=== PATIENT | female | born 1970 | race Caucasian/White ===

== ENCOUNTER 2016-09-23 20:42 | Observation (INO) | payer OTHER ==
[2016-09-23] MEDS ORDERED: Aspirin Low Dose CHEW TAB* 81 MG PO ONE (21:13)
[2016-09-23 21:20] LABS: Hematocrit 47 % (35-47); Hemoglobin 15.6 g/dl (12.0-16.0); Mean Corpuscular HGB Conc 33 g/dl (31-36); Mean Corpuscular Hemoglobin 29 pg (27-31); Mean Corpuscular Volume 88 fL (80-97); Mean Platelet Volume 8 um3 (7.4-10.4); Red Blood Count 5.34 10^6/ul (4.0-5.4); Red Cell Distribution Width 14 % (10.5-15); White Blood Count 8.8 10^3/ul (3.5-10.8)
[2016-09-23 21:31] LABS: ALT 9 U/L (7-52); AST 16 U/L (13-39); Albumin 4.3 g/dL (3.2-5.2); Alkaline Phosphatase 92 U/L (34-104); Anion Gap 6 mmol/L (2-11); BUN/Creatinine Ratio 21.1 (8-20); Blood Urea Nitrogen 15 mg/dL (6-24); CO2 Carbon Dioxide 28 mmol/L (22-32); Calcium 9.2 mg/dL (8.6-10.3); Chloride 100 mmol/L (101-111); EGFR African American 114.5 (>60); Globulin 3.4 g/dL (2-4); Glucose 90 mg/dL (70-100); Potassium 3.5 mmol/L (3.5-5.0); Sodium 134 mmol/L (133-145); Total Protein 7.7 g/dL (6.4-8.9)
[2016-09-23] MEDS ORDERED: Morphine INJ* 4 MG/ML 1 ML CARPUJECT IV ONE (21:51)
[2016-09-23] MEDS ORDERED: Ondansetron INJ* 2 MG/ML VIAL IV ONE (21:51)
[2016-09-23] MEDS ORDERED: NS 0.9% 1000 ML* 1,000 ML IV ONE (21:51)
--- NOTE | 2016-09-23 22:14 | RAD ---
Indication: Chest pain. Single frontal view of the chest performed at 2125 hours was reviewed. Comparison is made with previous exam dated May 18, 2014. No mediastinal shift is noted. Heart is of normal size and configuration. Lung payne appear clear. IMPRESSION: NO ACTIVE CARDIOPULMONARY DISEASE IS NOTED.
--- NOTE | 2016-09-23 22:23 | RAD ---
Indication: Evaluate for perforated esophagus. CT of the chest was performed without IV contrast. A small amount of oral contrast was administered. Coronal and sagittal reconstructed images were obtained. There is no evidence of extraluminal contrast is noted in the mediastinum. No evidence of mediastinal air is noted. There is mild dilatation of the esophagus. There is however suggestion of a mucosal tear involving the left mid esophagus at the level just distal to the devin. There is some persistent contrast in this area. Correlation with endoscopy may be helpful. Lung payne appear clear. No pleural fluid is identified. The visualized abdominal organs are unremarkable. IMPRESSION: There is septation in the left lateral aspect of the distal esophagus. The possibility of a Mary-Duong tear or a contained perforation should be considered. No mediastinal air is noted. Findings discussed with Dr. Hoover at the time of the examination.
[2016-09-23] MEDS ORDERED: Clindamycin 900 MG IVPREMIX(* 900 MG/50 ML SDV IV ONE (23:20)
[2016-09-23 23:37] LABS: C Reactive Protein 4.47 mg/L (< 5.00)
--- NOTE | 2016-09-23 23:37 | HP ---
H&P (Free Text) History and Physical: PCP: Vanessa Constantino NP Date/Time of Evaluation: 09/23/2015 2345 CC: N/V, chest pain HPI: Mrs Bueno is a 45F HX frequent vomiting who typically awakens each morning feeling SOB which improves after vomiting. She reports being extensively worked up by ENT & GI with little relief. She began having continuous sharp non- exertional R para-sternal chest pain radiating to the mid-scapular back without change in her typical SOB, N/V, palpitations, light-headedness, sweats, F/C, or other issues. The pain has worsened in the interim becoming severe today prompting her to present for evaluation. CT chest WO was read as "There is septation in the left lateral aspect of the distal esophagus. The possibility of a Mary-Duong tear or a contained perforation should be considered. No mediastinal air is noted." Vitals and labs are unenlightening. Maverick Hoover MD ED consulted with Woodrow Dominique MD surgery & Yobnay Navarro MD GI. Dr Navarro felt the patient could be safely managed at [facility] and will evaluate her in the AM. Anticipate EGD for confirmation of the lesion. PMedHx frequent vomiting tachycardia laryngopharyngeal reflux disease generalized anxiety disorder depression Allergies No Known Allergies Allergy (Verified 09/24/16 01:31) Ambulatory Orders ARIPiprazole TAB* [Abilify TAB*] 10 mg PO DAILY 08/17/14 Gabapentin CAP(*) [Neurontin 300 CAP(*)] 300 mg PO QID 08/17/14 Omeprazole CAP* [Prilosec CAP* 20 MG] 20 mg PO BID 08/17/14 QUEtiapine XR TAB* [Seroquel Xr TAB*] 50 mg PO BEDTIME PRN 08/17/14 hydrOXYzine HCL TAB* [Atarax TAB*] 50 mg PO BID PRN 08/17/14 Benzonatate [Tessalon Perles] 100 mg PO DAILY PRN 08/04/15 Mirtazapine [Remeron] 15 mg PO BEDTIME PRN 08/04/15 Digoxin TAB* [Lanoxin TAB*] 1 tab PO EVERY OTHER DAY 12/29/15 Albuterol Sulfate [Proair Respiclick] 108 mcg IN Q6H PRN 01/02/16 Mometasone/Formoter 100/5 MDI* [Dulera 100/5 MDI*] 2 puff INH BID 01/02/16 Ondansetron ODT TAB* [Zofran Odt TAB*] 4 mg PO Q6H PRN #20 tab.odt 04/26/16 Alprazolam [Xanax] 0.5 mg PO QPM 09/24/16 Digoxin [Digitek] 0.25 mg PO EVERY OTHER DAY 09/24/16 Effexor CAP (NF) 37.5 mg PO DAILY 09/24/16 Ondansetron ORAL.PEARL* [Zofran ORAL.PEARL] 4 mg PO Q6HR PRN 09/24/16 Sucralfate [Carafate] 1 gm PO BID 09/24/16 SocHx: 1/2PPD cigarettes, denies alcohol and recreational drugs; lives with her girlfriend; full code status FamHx: reviewed, non-contributory ROS: as above, otherwise reviewed and all were negative Constitutional: NAD, normally developed, well-nourished white female vitals: Vital Signs Temp 36.7 C 09/23/16 21:33 Pulse 64 09/24/16 01:30 Resp 15 09/24/16 01:30 BP 112/65 09/24/16 01:30 Pulse Ox 96 09/24/16 01:30 Intake & Output 09/23/16 09/23/16 09/24/16 11:59 23:59 11:59 Intake Total 1052 Balance 1052 Weight 138 lb Intake: IV Fluids 1052 HEENM: atraumatic; sclera/conjunctiva: non-icteric/clear; hearing: clinically intact; oropharynx: clear, mucosa moist Neck: soft tissue: non-tender; thyroid: normal Pulmonary: clear to auscultation bilaterally, good aeration, no accessory muscle use CV: RR/RR, normal S1S2, no carotid bruit, no jugular venous distention, 2+ B DP/ PT, no edema Abdominal: soft, non-distended, non-tender, no rebound/guarding/rigidity, normoactive bowel sounds, no hepatosplenomegaly or masses, no costovertebral angle tenderness Musculoskeletal: general: grossly intact; gait: stable Integumental: normal appearance and texture Psychiatric orientation: AA&O to PPS affect: calm mood: cooperative eye contact: good content: seemingly reliable responses: timely insight: fair Testing: Lab Results 09/23/16 09/23/16 09/23/16 Range/Units 21:05 21:05 21:05 WBC 8.8 (3.5-10.8) 10^3/ul RBC 5.34 (4.0-5.4) 10^6/ul Hgb 15.6 (12.0-16.0) g/dl Hct 47 (35-47) % MCV 88 (80-97) fL MCH 29 (27-31) pg MCHC 33 (31-36) g/dl RDW 14 (10.5-15) % Plt Count 218 (150-450) 10^3/ul MPV 8 (7.4-10.4) um3 Neut % (Auto) 53.9 (38-83) % Lymph % (Auto) 35.1 (25-47) % [place] % (Auto) 6.8 (1-9) % Eos % (Auto) 3.0 (0-6) % Baso % (Auto) 1.2 (0-2) % Absolute Neuts (auto) 4.7 (1.5-7.7) 10^3/ul Absolute Lymphs (auto) 3.1 (1.0-4.8) 10^3/ul Absolute Monos (auto) 0.6 (0-0.8) 10^3/ul Absolute Eos (auto) 0.3 (0-0.6) 10^3/ul Absolute Basos (auto) 0.1 (0-0.2) 10^3/ul Absolute Nucleated RBC 0 10^3/ul Nucleated RBC % 0 Sodium 134 (133-145) mmol/L Potassium 3.5 (3.5-5.0) mmol/L Chloride 100 L (101-111) mmol/L Carbon Dioxide 28 (22-32) mmol/L Anion Gap 6 (2-11) mmol/L BUN 15 (6-24) mg/dL Creatinine 0.71 (0.51-0.95) mg/dL Est GFR ( Amer) 114.5 (>60) Est GFR (Non-Af Amer) 89.0 (>60) BUN/Creatinine Ratio 21.1 H (8-20) Glucose 90 (70-100) mg/dL Lactic Acid 0.6 (0.5-2.0) mmol/L Calcium 9.2 (8.6-10.3) mg/dL Total Bilirubin 0.50 (0.2-1.0) mg/dL AST 16 (13-39) U/L ALT 9 (7-52) U/L Alkaline Phosphatase 92 (34-104) U/L Troponin I 0.00 (<0.04) ng/mL C-Reactive Protein 4.47 (< 5.00) mg/L Total Protein 7.7 (6.4-8.9) g/dL Albumin 4.3 (3.2-5.2) g/dL Globulin 3.4 (2-4) g/dL Albumin/Globulin Ratio 1.3 (1-3) Beta HCG, Quant < 0.60 mIU/mL ECG, personally reviewed: NSR rate 68, no ischemia CXR, personally reviewed: IMPRESSION: NO ACTIVE CARDIOPULMONARY DISEASE IS NOTED. CT chest WO, personally reviewed: IMPRESSION: There is septation in the left lateral aspect of the distal esophagus. The possibility of a Mary-Duong tear or a contained perforation should be considered. No mediastinal air is noted. Impression: 45F HX frequent vomiting presents with suspicious of Mary-Duong tear on CT associated with 4 days of chest pain DIAGNOSIS & PLAN Primary chest pain after emesis with CT finding suspicious for Mary-Duong tear : NPO : Yobany Navarro MD GI consulted, will evaluate in AM : pantoprazole bolus/GTT : anti-emetics PRN : pain control : supportive care Secondary laryngopharyngeal reflux disease : PPI as above generalized anxiety disorder : continue alprazolam depression : continue aripiprazole, quetiapine, mirtazapine & venlafaxine tachycardia : continue digoxin Admission Rational: observation for evaluation of possible Mary-Duong tear/ chest pain DVTp: MADALYN Code Status: full
--- NOTE | 2016-09-23 23:51 | ED ---
Shalom Liu Michael, scribed for Any Hoover MD on 09/23/16 at 2155 . HPI Chest Pain - HPI Summary HPI Summary: 45 y/o female comes to the ED presenting with constant and sharp right sided chest pain that started 4 days ago. The pt reports that the chest pain radiates to her back. The chest pain is not aggravated with deep breathes. She also c/o dizziness that started today and MOYER present for 2 days. The PMHx is significant for GERD and chronic vomiting. The chronic vomiting started one year ago and she regularly visits Dr. Bacon. The vomiting episodes are alleviated by nothing. The pt reports having an appointment on 09/27/16 with a [facility] surgeon for a mass under her right breast. - History of Current Complaint Chief Complaint: EDChestPainROMI Time Seen by Provider: 09/23/16 21:08 Hx Obtained From: Patient, Family/Timber Cruiser, Medical Records Onset/Duration: Started Days Ago, Still Present Timing: Constant Initial Severity: Moderate Current Severity: Moderate Pain Intensity: 5 Pain Scale Used: 0-10 Numeric Chest Pain Location: Right Lateral Chest Pain Radiates: Yes Chest Pain Radiates To:: Back Character: Sharp/Stabbing Associated Signs and Symptoms: Positive: Chest Pain, Headaches, Dizziness, Vomiting - Allergy/Home Medications Allergies/Adverse Reactions: Allergies Allergy/AdvReac Type Severity Reaction Status Date / Time No Known Allergies Allergy Verified 06/13/16 09:21 PMH/Surg Hx/FS Hx/Imm Hx Endocrine/Hematology History: Denies: Hx Diabetes, Hx Systemic Lupus Erythematosus Cardiovascular History: Denies: Hx Congestive Heart Failure, Hx Hypertension, Hx Pacemaker/ICD, Other Cardiovascular Problems/Disorders Respiratory History: Denies: Other Respiratory Problems/Disorders GI History: Reports: Hx Gastroesophageal Reflux Disease - ON MEDS PRN Denies: Other GI Disorders History: Reports: Hx Kidney Stones - RIGHT SIDE, Other Problems/Disorders - Kidney Stents IN THE PAST Denies: Hx Dialysis, Hx Renal Disease Musculoskeletal History: Denies: Hx Rheumatoid Arthritis, Other Musculoskeletal History Sensory History: Denies: Hx Contacts or Glasses, Hx Hearing Aid Opthamlomology History: Denies: Hx Contacts or Glasses Neurological History: Denies: Other Neuro Impairments/Disorders Psychiatric History: Reports: Hx Anxiety - ON MEDS, Hx Depression - ON MEDS, Hx Panic Disorder - ANXIETY - Cancer History Hx Chemotherapy: No Hx Radiation Therapy: No - Surgical History Surgery Procedure, Year, and Place: RIGHT Wrist Ganglion 1989 @ [facility]; Kidney Stents 1999, [facility] Hx Anesthesia Reactions: No Infectious Disease History: Reports: Hx of Known/Suspected MRSA Denies: Traveled Outside the [place] in Last 30 Days - Family History Known Family History: Positive: Renal Disease - kidney stones, Other - kidney stones - Social History Occupation: Unemployed Lives: With Family Alcohol Use: Rare Hx Substance Use: No Substance Use Type: Reports: None Hx Tobacco Use: Yes Smoking Status (MU): Light Every Day Tobacco Smoker Review of Systems Negative: Fever Positive: Chest Pain Positive: Vomiting Neurological: Other - dizziness Positive: Headache All Other Systems Reviewed And Are Negative: Yes Physical Exam Triage Information Reviewed: Yes Vital Signs On Initial Exam: Initial Vitals BP 124/80 09/23/16 21:00 Vital Signs Reviewed: Yes Appearance: Positive: Well-Appearing, No Pain Distress Skin: Positive: Warm, Skin Color Reflects Adequate Perfusion, Dry, Other - fibrocystic mass left breast Eyes: Positive: EOMI, NAVIN ENT: Positive: Other - dry oral mucosa Neck: Positive: Supple, Nontender Respiratory/Lung Sounds: Positive: Clear to Auscultation, Breath Sounds Present. Negative: Rales, Rhonchi, Wheezes Cardiovascular: Positive: RRR, Other - no gallop. Negative: Murmur, Rub Abdomen Description: Positive: Nontender, Soft, Other: - no rebound. Negative: Distended, Guarding Bowel Sounds: Positive: Present Musculoskeletal: Positive: Strength/ROM Intact. Negative: Edema Left, Edema Right Neurological: Positive: Sensory/Motor Intact, Alert, Oriented to Person Place, Time, CN Intact II-III Psychiatric: Positive: Affect/Mood Appropriate - [place] Coma Scale Coma Scale Total: 15 Diagnostics - Vital Signs Vital Signs Temp Pulse Resp BP Pulse Ox 09/23/16 21:33 98.1 F 74 16 116/76 97 09/23/16 21:02 69 14 97 09/23/16 21:00 124/80 - Laboratory Lab Results: Lab Results 09/23/16 09/23/16 09/23/16 Range/Units 21:05 21:05 21:05 WBC 8.8 (3.5-10.8) 10^3/ul RBC 5.34 (4.0-5.4) 10^6/ul Hgb 15.6 (12.0-16.0) g/dl Hct 47 (35-47) % MCV 88 (80-97) fL MCH 29 (27-31) pg MCHC 33 (31-36) g/dl RDW 14 (10.5-15) % Plt Count 218 (150-450) 10^3/ul MPV 8 (7.4-10.4) um3 Neut % (Auto) 53.9 (38-83) % Lymph % (Auto) 35.1 (25-47) % [place] % (Auto) 6.8 (1-9) % Eos % (Auto) 3.0 (0-6) % Baso % (Auto) 1.2 (0-2) % Absolute Neuts (auto) 4.7 (1.5-7.7) 10^3/ul Absolute Lymphs (auto) 3.1 (1.0-4.8) 10^3/ul Absolute Monos (auto) 0.6 (0-0.8) 10^3/ul Absolute Eos (auto) 0.3 (0-0.6) 10^3/ul Absolute Basos (auto) 0.1 (0-0.2) 10^3/ul Absolute Nucleated RBC 0 10^3/ul Nucleated RBC % 0 Sodium 134 (133-145) mmol/L Potassium 3.5 (3.5-5.0) mmol/L Chloride 100 L (101-111) mmol/L Carbon Dioxide 28 (22-32) mmol/L Anion Gap 6 (2-11) mmol/L BUN 15 (6-24) mg/dL Creatinine 0.71 (0.51-0.95) mg/dL Est GFR ( Amer) 114.5 (>60) Est GFR (Non-Af Amer) 89.0 (>60) BUN/Creatinine Ratio 21.1 H (8-20) Glucose 90 (70-100) mg/dL Lactic Acid 0.6 (0.5-2.0) mmol/L Calcium 9.2 (8.6-10.3) mg/dL Total Bilirubin 0.50 (0.2-1.0) mg/dL AST 16 (13-39) U/L ALT 9 (7-52) U/L Alkaline Phosphatase 92 (34-104) U/L Troponin I 0.00 (<0.04) ng/mL Total Protein 7.7 (6.4-8.9) g/dL Albumin 4.3 (3.2-5.2) g/dL Globulin 3.4 (2-4) g/dL Albumin/Globulin Ratio 1.3 (1-3) Beta HCG, Quant < 0.60 mIU/mL Result Diagrams: 09/23/16 21:05 09/23/16 21:05 Lab Statement: Any lab studies that have been ordered have been reviewed, and results considered in the medical decision making process. - Radiology CXR Xray Interpretation: No Acute Changes Radiology Interpretation Completed By: Radiologist - CT Chest CT CT Interpretation: Positive (See Comments) - There is septation in the left lateral aspect of the distal esophagus. The possibility of a Mary-Duong tear or a contained perforation should be considered. No mediastinal air is noted. CT Interpretation Completed By: Radiologist - EKG EK EKG Rhythm: Sinus Rhythm - 68 bpm EKG Comparison: No Significant Change - compared to 01/01/16 Chest Pain Course/Dx - Course Course Of Treatment: 45 y/o female c/o right sided chest pain that started four days ago. She also presents dizziness and MOYER. The pt has chronic vomiting episodes. See Chart for Chest CT results. Dr. Navarro was consulted about imaging results, and Dr. Stauffer was consulted at 2314. The pt will be admitted to [facility]. Ct shows esophageal tear pt very well appearing talk with Dr. Navarro and Dr. Stauffer will observe overnight - Diagnoses Provider Diagnoses: Esophageal abnormality Discharge - Discharge Plan Condition: Stable Disposition: ADMITTED TO [facility] Discharge Disposition Comment: Dr. Stauffer accepts the pt as an admission Referrals: Facundo Constantino, ACCOUNT DEVELOPMENT ASSOCIATE [Primary Care Provider] - The documentation as recorded by the Shalom sue Michael accurately reflects the service I personally performed and the decisions made by me, Any Hoover MD.
[2016-09-24] MEDS ORDERED: Mirtazapine TAB* 15 MG PO PRN (01:53)
[2016-09-24] MEDS ORDERED: hydrOXYzine HCL TAB* 50 MG PO PRN (01:53)
[2016-09-24] MEDS ORDERED: QUEtiapine XR TAB* 50 MG PO PRN (01:53)
[2016-09-24] MEDS ORDERED: Benzonatate CAP* 100 MG PO PRN (01:53)
[2016-09-24] MEDS ORDERED: Albuterol 2.5 MG/3 ML NEB.SOL* (0.083%) INH PRN (01:57)
[2016-09-24] MEDS ORDERED: LORazepam INJ* 2 MG/ML 1 ML VIAL IV PRN (02:00)
[2016-09-24] MEDS ORDERED: Acetaminophen TAB* 325 MG PO PRN (02:10)
[2016-09-24] MEDS ORDERED: Pantoprazole IV* 80 MG in NS 0.9% 250 ML* 250 ML IVPB SCH (03:00)
[2016-09-24] MEDS ORDERED: Pantoprazole IV* 40 MG IV SCH (03:00)
[2016-09-24] MEDS ORDERED: Pantoprazole IV* 40 MG ONE (03:18)
[2016-09-24] MEDS: Ondansetron INJ* 2 MG/ML VIAL IV PRN ×3 (03:39→15:56)
[2016-09-24] MEDS: HYDROmorphone INJ* 1 MG/ML CARPUJECT SYRINGE IV PRN ×3 (03:39→15:55)
[2016-09-24] MEDS: NS 0.9% 1000 ML* 1,000 ML IV SCH ×2 (03:40→15:55)
[2016-09-24] MEDS ORDERED: Sucralfate TAB* 1 GM PO SCH (07:15)
[2016-09-24] MEDS ORDERED: Clindamycin 600 MG IVPREMIX(* 600 MG/50 ML SDV IV SCH (08:00)
[2016-09-24] MEDS ORDERED: Venlafaxine EXT RELEASE CAP* 37.5 MG PO SCH (09:00)
[2016-09-24] MEDS ORDERED: ARIPiprazole TAB* 5 MG PO SCH (09:00)
[2016-09-24] MEDS ORDERED: Mometasone/Formoter 100/5 MDI INH SCH (09:00)
[2016-09-24] MEDS ORDERED: Digoxin TAB* 0.25 MG PO SCH (09:00)
[2016-09-24] MEDS: Gabapentin CAP(*) 300 MG PO SCH ×2 (10:31→15:55)
--- NOTE | 2016-09-24 11:29 | PN ---
Subjective Date of Service: 09/24/16 Interval History: This is a 45 yo female with a h/o GERD, anxiety and depression who presented with complaints of chest pain. Patient has a long history of reflux and frequent vomiting after meals. She has been seen by GI in the past and had a normal EGD 12/2015. The chest pain was a new symptom that brought her to the ER. CT of the chest demonstrated a septation of the L lat aspect of the distal esophagus potentially representing a Mary-Duong tear or encapsulated perforation, no air in the mediastinum. Patient was started on a Protonix drip and an EGD with Dr Navarro is pending for later today. Patient reports that her pain is tolerable and intermittent. Denies abdominal pain, n/v. No diarrhea. Objective Active Medications: Acetaminophen (Tylenol Tab*) 650 mg PO Q6H PRN PRN Reason: FEVER/PAIN Albuterol (Ventolin 2.5 Mg/3 Ml Neb.Evelin*) 2.5 mg INH Q2H PRN PRN Reason: SOB/WHEEZING Alprazolam (Xanax Tab*) 0.5 mg PO QPM [facility] Aripiprazole (Abilify Tab*) 10 mg PO DAILY [facility] Last Admin: 09/24/16 10:31 Dose: 10 mg Benzonatate (Tessalon Cap*) 100 mg PO DAILY PRN PRN Reason: COUGH Digoxin (Lanoxin Tab*) 0.25 mg PO EVERY OTHER DAY [facility] Last Admin: 09/24/16 10:31 Dose: 0.25 mg Digoxin (Lanoxin Tab*) 0.125 mg PO EVERY OTHER DAY [facility] Gabapentin (Neurontin Cap(*)) 300 mg PO QID [facility] Last Admin: 09/24/16 10:31 Dose: 300 mg Hydromorphone HCl (Dilaudid Iv*) 1 mg IV Q3H PRN PRN Reason: PAIN Last Admin: 09/24/16 08:48 Dose: 1 mg Hydroxyzine HCl (Atarax Tab*) 50 mg PO BID PRN PRN Reason: AGITATION/ANXIETY Clindamycin HCl/Dextrose (Cleocin 600 Mg Ivpremix(*) Sdv) 600 mg in 50 mls @ 100 mls/hr IV Q8H [facility] Last Admin: 09/24/16 08:53 Dose: 100 mls/hr Sodium Chloride (Ns 0.9% 1000 Ml*) 1,000 mls @ 125 mls/hr IV PER RATE [facility] Last Admin: 09/24/16 03:40 Dose: 125 mls/hr Pantoprazole Sodium 80 mg/ (Sodium Chloride) 250 mls @ 25 mls/hr IVPB Q10H [facility] Last Admin: 09/24/16 03:39 Dose: 25 mls/hr Lorazepam (Ativan Inj*) 0.5 mg IV BEDTIME PRN PRN Reason: SLEEP Mirtazapine (Remeron Tab*) 15 mg PO BEDTIME PRN PRN Reason: INSOMNIA Mometasone Furoate/Formoterol Fumar (Dulera 100/5 Mdi*) 2 puff INH BID [facility] Last Admin: 09/24/16 08:48 Dose: 2 puff Ondansetron HCl (Zofran Inj*) 4 mg IV Q6H PRN PRN Reason: NAUSEA Last Admin: 09/24/16 08:49 Dose: 4 mg Quetiapine Fumarate (Seroquel Xr Tab*) 50 mg PO BEDTIME PRN PRN Reason: ANXIETY Sucralfate (Carafate*) 1 gm PO 0715,1630 [facility] Last Admin: 09/24/16 08:37 Dose: 1 gm Venlafaxine HCl (Effexor Xr Cap*) 37.5 mg PO DAILY [facility] Last Admin: 09/24/16 10:32 Dose: 37.5 mg Vital Signs: Temp Pulse Resp BP Pulse Ox 97.9 F 60 14 97/52 98 09/24/16 02:55 09/24/16 10:31 09/24/16 10:31 09/24/16 07:40 09/24/16 08:53 Oxygen Devices in Use Now: None Appearance: Mildly uncomfortable appearing female Eyes: No Scleral Icterus Ears/Nose/Mouth/Throat: NL Teeth, Lips, Gums Neck: NL Appearance and Movements; NL JVP Respiratory: Symmetrical Chest Expansion and Respiratory Effort, Clear to Auscultation Cardiovascular: NL Sounds; No Murmurs; No JVD, RRR Abdominal: - - some mild LUQ TTP, but abd is soft Extremities: No Edema Skin: No Rash or Ulcers Neurological: Alert and Oriented x 3 Result Diagrams: 09/23/16 21:05 09/23/16 21:05 Additional Lab and Data: . Diagnostic Imaging: CT chest - septation of left lateral aspect of distal esopahgus, ?Mary duong tear v encapsulated perf, no mediastinal air Assess/Plan/Problems-Billing Assessment: This is a 45 yo female with a h/o asthma, GERD, anxiety and depression who presented with complaints of chest pain. Admitted with concern for Mary Duong tear of near perforation of the esophagus. - Patient Problems (1) Esophageal abnormality Comment: Abnl appearance on CT with complaints of chest pain Pending EGD for later today, patient appears clinically stable at this time Cont Protonix drip and empiric abx (2) Asthma Comment: Cont inhaled medications (3) GERD (gastroesophageal reflux disease) (4) Depression Comment: Continue home medications (5) Anxiety Status and Disposition: Pending EGD
[2016-09-24] MEDS ORDERED: fentaNYL* 50 MCG/ML 2 ML VIAL (100 MCG VIAL) ONE (12:39)
[2016-09-24] MEDS ORDERED: Midazolam* 1 MG/ML 10 ML VIAL (10 MG) ONE (12:39)
[2016-09-24 13:01] LABS: Hematocrit 42 % (35-47); Mean Corpuscular HGB Conc 33 g/dl (31-36); Mean Corpuscular Hemoglobin 29 pg (27-31); Mean Corpuscular Volume 89 fL (80-97); Mean Platelet Volume 9 um3 (7.4-10.4); Red Blood Count 4.78 10^6/ul (4.0-5.4); Red Cell Distribution Width 14 % (10.5-15); White Blood Count 8.2 10^3/ul (3.5-10.8)
[2016-09-24 13:20] LABS: C Reactive Protein 4.06 mg/L (< 5.00)
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
[2016-09-24 17:18] VITALS: BP 103/39
[2016-09-24] MEDS ORDERED: ALPRAZolam TAB* 0.5 MG PO SCH (18:00)
--- NOTE | 2016-09-24 23:18 | PRO ---
DATE: 09/24/16 - ROOM #416 REFERRING PRACTITIONERS: KAYLYN Matias; Eleuterio Johns * PROCEDURE: Upper gastrointestinal endoscopy through the distal duodenum. INDICATION: This 45-year-old woman came to the emergency room with nausea and vomiting extending over many months, possibly more. She had said it was worse and she was having pain in her chest. There was no hematemesis or fever. Esophageal injury came into the differential with her chest pain complaint and she had a chest x-ray that was normal and then CT scan, which was interpreted as showing possible esophageal injury or Boerhaave syndrome. No other findings suggested any infection in the mediastinum. She was placed empirically on sucralfate, acid inhibition, clindamycin, and pain control and kept n.p.o. otherwise. She remained afebrile and showed no sign of instability. Lung exam was unremarkable. Her pulse remained in the 60s. Although the possibility of esophageal injury raised question of a potentially catastrophic situation, preponderance of evidence was against this and as she had tolerated prior endoscopies without incident, it was planned to look with an endoscope. ENDOSCOPIST: Dr Navarro. MEDICATIONS: Midazolam 6, fentanyl 75. FINDINGS: She is a slender, generally healthy-appearing woman in no overt distress at this time. Her lungs are clear and the abdomen has normal bowel sounds and has some deep guarding in the generalized sense without any localization. EGD: Larynx - Views are limited, but symmetric and appeared unremarkable. Esophagus - easily entered and there was no gagging whatsoever. The patient was quite comfortable, again with no gagging or retching. Mucosa in the upper, mid, and lower esophagus appeared entirely normal without any scarring or chronic changes. There were no changes of allergy or scarring. The EG junction at 39 was normal, minimally loose potentially but without any signs of scar and certainly no Mary-Duong tear. Stomach - had normal contours and rugal folds, though visualization was slightly limited by a coating of Carafate. The EG junction on retroflexion; however, was not coated and appeared normal. Similarly, the antrum was normal with a minimal amount of Carafate. A smooth lump in the prepyloric area 6 o' clock orientation appeared consistent with the just described (confirmed at [facility] endoscopic ultrasound) and there was no indication to biopsy. The overlying mucosa was normal. Pylorus appeared normal. Duodenum - the bulb and second through fourth portions appear normal. IMPRESSION: 1. Small submucosal antral nodule - appeared stable per description. 2. Normal EGD including normal esophagus and EG junction. 3. Nausea and vomiting - source unclear, though it is observed the patient's nutritional situation appears stable with albumin 4.3 and normal CBC. 4. Abnormal CT scan - probably a false positive based on an asymmetric air column leading to an artifact. 5. Fibromyalgia and chronic pain with underlying anxiety - probably a co- factor in all her medical issues. [id number]/[facility] #: [id number] KACEY
--- NOTE | 2016-09-25 03:50 | DS ---
DISCHARGE SUMMARY: DATE OF ADMISSION: 09/23/16 DATE OF DISCHARGE: 09/24/16 PRIMARY CARE PHYSICIAN: Facundo Constantino NP CONSULTING [place] LETTER CARRIER: Dr. Navarro. DISCHARGING PROVIDER: ELFEGO Martinez SUPERVISING PHYSICIAN: Mansi Tate DO * (dictated by ELFEGO Martinez) PRIMARY DISCHARGE DIAGNOSIS: Chest pain with CT abnormality - concern for esophageal tear or rupture without corresponding findings on EGD, suspect esophageal spasm. SECONDARY DISCHARGE DIAGNOSES: 1. Asthma. 2. Gastroesophageal reflux disease. 3. Anxiety and depression. HOSPITAL IMAGIN. Chest x-ray. No acute disease. 2. CT of the chest without contrast shows a septation in the left lateral aspect of the distal esophagus, possibility of a Mary-Duong tear or a contained perforation should be considered. No mediastinal air is noted. DISCHARGE MEDICATIONS: 1. Effexor 37.5 mg p.o. daily. 2. Abilify 10 mg p.o. daily. 3. Albuterol 2 puffs inhaled q.6 hours p.r.n. shortness of breath. 4. Alprazolam 0.5 mg p.o. at night. 5. Tessalon Perles 100 mg p.o. daily. 6. Digoxin 0.125 mg alternating with 0.25 mg every other day. 7. Gabapentin 300 mg p.o. 4 times daily. 8. Imipramine 25 mg p.o. at bedtime. 9. Mirtazapine 15 mg p.o. at bedtime. 10. Symbicort 2 puffs inhaled twice daily. 11. Omeprazole 20 mg p.o. twice daily. 12. Zofran 4 mg p.o. q.6 hours p.r.n. nausea. 13. Seroquel 50 mg p.o. at bedtime. 14. Carafate 1 g p.o. b.i.d. 15. Hydroxyzine 50 mg p.o. twice a day as needed for anxiety. Medication Changes: Start imipramine. HOSPITAL COURSE: This is a 45-year-old female with a history of GERD, asthma, depression, and anxiety who presented to the emergency department with acute right- sided chest pain. The patient has had multi months' history of reflux- type symptoms with frequent vomiting. She has undergone prior EGD on two occasions, most recent with Dr. Dutton in December of this past year without any acute findings. She has been started on a PPI without relief. The chest pain that she experienced, however, was a new symptom and concerned her. Upon presentation to the emergency department, her labs were unremarkable including a negative troponin. Chest x-ray did not show any acute process. CT of the chest, however, was performed, which showed what was described as septation of the esophagus that was though to potentially represent a Mary-Duong tear verus a contained perforation. In combination with her prior GI symptoms and acute chest pain, the patient was admitted for further treatment and evaluation. The patient's symptoms remained fairly constant and she underwent EGD with Dr. Navarro who identified no acute pathology within her esophagus or stomach. Repeat CBC and comprehensive metabolic panel were unremarkable. The patient's hemoglobin remained stable. CRP remains negative and lipase was also noted to be negative. DISPOSITION AND DISCHARGE PLAN: The patient's chest pain appeared to be noncardiac. An EGD showed no evidence of acute esophageal pathology. The patient's symptoms may represent esophageal spasm. She has been referred to a specialist in [place] and has a pending appointment for later this month. Suggested that she trial empiric therapy for esophageal spasm. Consider diltiazem versus a tricyclic antidepressant. Elected for a tricyclic antidepressant as she was borderline hypotensive and bradycardic during her hospital stay and diltiazem may certainly make both of these worse. Suggest followup with her primary care provider and keep her consultation in [place] as previously planned. ELFEGO MARTINEZ CC: Facundo Constantino NP * [id number]/[facility] #: [id number] MTDD
[2016-09-25] MEDS ORDERED: Digoxin TAB* 0.125 MG PO SCH (09:00)
== END 2016-09-24 17:45 | disposition home or self-care (01) ==
LOC: ED 20:42 → MED 23:38
PROVIDERS: ADMIT Hospitalist; ATTEND Hospitalist
PROC: 0DJ08ZZ Inspection of Upper Intestinal Tract, Via Natural or Artificial Opening Endoscopic (ICD-10-PCS; principal; 2016-09-23)
DX: R07.9 Chest pain, unspecified (principal); K22.8 Other specified diseases of esophagus; R06.02 Shortness of breath; R11.2 Nausea with vomiting, unspecified; R00.0 Tachycardia, unspecified; J45.909 Unspecified asthma, uncomplicated; K21.9 Gastro-esophageal reflux disease without esophagitis; F41.9 Anxiety disorder, unspecified; F32.9 Major depressive disorder, single episode, unspecified; Z79.899 Other long term (current) drug therapy; F17.210 Nicotine dependence, cigarettes, uncomplicated; Z87.442 Personal history of urinary calculi
CPT/HCPCS: 36415; 71010; 71250; 80053; 83605; 83690; 84484; 84702; 85025; 85027; 86140; 93005; 94640; 96361; 96365; 96375; 96376; 99285; 99406; A9270-GY; J1170; J2250; J2270; J2405; J3010

== ENCOUNTER 2017-04-11 16:26 | Emergency (ER) | payer OTHER ==
[2017-04-11] MEDS ORDERED: Dexamethasone TAB* 4 MG PO ONE (16:59)
[2017-04-11] MEDS ORDERED: Diazepam TAB(*) 5 MG PO ONE (16:59)
[2017-04-11] MEDS ORDERED: oxyCODONE/Acetamin 5/325 MG* TAB PO ONE (16:59)
--- NOTE | 2017-04-11 18:26 | RAD ---
INDICATION: Neck, back, shoulder pain. Syncopal episode. COMPARISON: March 07, 2015 radiographs TECHNIQUE: Multidetector CT images foramen magnum to lung apices without contrast. Multiplanar reformation. REPORT: Mild kyphosis which may reflect positioning for CT exam. Negative for facet subluxation at any level. Negative for vertebral body or posterior element fracture. Negative for paravertebral hematoma. Multilevel degenerative spondylosis and facet joint osteoarthritis with associated reactive endplate sclerosis. Disc space narrowing is most prominent at C5-C6 and C6-C7 moderately severe. At C3-C4: mild dorsal disc osteophyte complex without resulting central canal stenosis. Facet joint osteoarthritis results in slight RIGHT foraminal stenosis. At C4-C5: dorsal disc osteophyte complex present with only mild resulting impression on the thecal sac. At C5-C6: dorsal disc osteophyte complex present with only mild resulting impression on the ventral margin of the thecal sac. Uncinate process spurring results in mild RIGHT foraminal stenosis. At C6-C7: dorsal disc osteophyte complex without significant resulting impression on the thecal sac. Uncinate process spurring results in moderate bilateral foraminal stenosis. IMPRESSION: 1. No evidence for traumatic cervical spine injury. 2. Multilevel degenerative spondylosis and facet joint osteoarthritis as described with associated multilevel foraminal stenosis.
--- NOTE | 2017-04-11 19:02 | ED ---
Neck Pain - HPI Summary HPI Summary: 46F presents with neck pain for 5 days. She states that the pain radiates to her shoulders. She states she has had pinched nerves before but that it does not feel like this. She denies any injury. She is getting tingling down her arms. She denies any weakness. the pain ends at upper back. She states the pain was so intense that she did pass out. She denies any chest pain, SOB. She has been taking ibuprofen without relief. She has history of DJD but has never had this pain before. - History of Current Complaint Chief Complaint: EDNeckComplaint Stated Complaint: SHOULDER NECK AND ARM PAIN Time Seen by Provider: 04/11/17 16:41 Pain Intensity: 8 - Allergies/Home Medications Allergies/Adverse Reactions: Allergies Allergy/AdvReac Type Severity Reaction Status Date / Time No Known Allergies Allergy Verified 09/24/16 01:31 PMH/Surg Hx/FS Hx/Imm Hx Endocrine/Hematology History: Denies: Hx Diabetes, Hx Systemic Lupus Erythematosus Cardiovascular History: Denies: Hx Congestive Heart Failure, Hx Hypertension, Hx Pacemaker/ICD, Other Cardiovascular Problems/Disorders Respiratory History: Reports: Hx Asthma, Hx Pneumonia Denies: Other Respiratory Problems/Disorders GI History: Reports: Hx Gastroesophageal Reflux Disease - ON MEDS PRN, Other GI Disorders - frequent vomiting History: Reports: Hx Kidney Stones - RIGHT SIDE, Other Problems/Disorders - Kidney Stents IN THE PAST Denies: Hx Dialysis, Hx Renal Disease Musculoskeletal History: Denies: Hx Rheumatoid Arthritis, Other Musculoskeletal History Sensory History: Reports: Hx Contacts or Glasses Denies: Hx Hearing Aid Opthamlomology History: Reports: Hx Contacts or Glasses Neurological History: Denies: Other Neuro Impairments/Disorders Psychiatric History: Reports: Hx Anxiety - ON MEDS, Hx Depression - ON MEDS, Hx Panic Disorder - ANXIETY - Cancer History Hx Chemotherapy: No Hx Radiation Therapy: No - Surgical History Surgery Procedure, Year, and Place: RIGHT Wrist Ganglion 1989 @ [facility]; Kidney Stents 1999, [facility] Hx Anesthesia Reactions: No Infectious Disease History: No Infectious Disease History: Reports: Hx of Known/Suspected MRSA Denies: Traveled Outside the [place] in Last 30 Days - Family History Known Family History: Positive: Renal Disease - kidney stones, Other - kidney stones - Social History Alcohol Use: None Hx Substance Use: No Substance Use Type: Reports: None Hx Tobacco Use: Yes Smoking Status (MU): Light Every Day Tobacco Smoker Review of Systems Negative: Fever Negative: Chest Pain Negative: Shortness Of Breath Positive: Myalgia - neck pain All Other Systems Reviewed And Are Negative: Yes Physical Exam Triage Information Reviewed: Yes Vital Signs On Initial Exam: Initial Vitals Temp Pulse Resp BP Pulse Ox 97.8 F 81 20 129/72 96 04/11/17 16:30 04/11/17 16:30 04/11/17 16:30 04/11/17 16:30 04/11/17 16:30 Vital Signs Reviewed: Yes Appearance: Positive: Pain Distress Skin: Positive: Warm, Dry Head/Face: Positive: Normal Head/Face Inspection Eyes: Positive: Normal, Conjunctiva Clear ENT: Positive: Normal ENT inspection, Pharynx normal, TMs normal Respiratory/Lung Sounds: Positive: Clear to Auscultation, Breath Sounds Present Cardiovascular: Positive: Normal, RRR Musculoskeletal: Positive: Strength/ROM Intact - neck with pain, Other - no midline tenderness, tender across back, good pulses, good color dipper strength Neurological: Positive: Sensory/Motor Intact, Alert, Oriented to Person Place, Time, CN Intact II-III, Reflexes Intact - biceps - [place] Coma Scale Coma Scale Total: 15 Diagnostics - Vital Signs Vital Signs Temp Pulse Resp BP Pulse Ox 04/11/17 17:28 16 04/11/17 16:55 70 95 04/11/17 16:46 97.8 F 81 20 129/72 98 04/11/17 16:30 97.8 F 81 20 129/72 96 - Laboratory Lab Statement: Any lab studies that have been ordered have been reviewed, and results considered in the medical decision making process. - CT neck CT Interpretation: Positive (See Comments) - IMPRESSION: 1. No evidence for traumatic cervical spine injury. 2. Multilevel degenerative spondylosis and facet joint osteoarthritis as described with associated multilevel foraminal stenosis. CT Interpretation Completed By: Radiologist - EKG No standard instances Cardiac Rate: NL EKG Rhythm: Sinus Rhythm ST Segment: Normal Neck Course/Dx - Course Course Of Treatment: 46F presents with neck pain for 5 days. She states that the pain radiates to her shoulders. She states she has had pinched nerves before but that it does not feel like this. She denies any injury. She is getting tingling down her arms. She denies any weakness. the pain ends at upper back. She states the pain was so intense that she did pass out. She denies any chest pain, SOB. She has been taking ibuprofen without relief. She has history of DJD but has never had this pain before. on exam no midline tenderness, tender across side of neck and down trapezius muscle. neurovascular intact. got EKG normal due to syncope but discussed and does not want further work up for syncope. CT neck no acute changes. will treat with steriod and muscle relaxer. discussed pain options and will give a couple to get through next couple days. patient understands and agrees with plan. - Diagnoses Differential Dx/HQI/PQRI: Positive: Cervical Fracture, Sprain, Other - herniation Provider Diagnoses: Neck pain Discharge - Discharge Plan Condition: Good Disposition: HOME Prescriptions: Cyclobenzaprine TAB* [Flexeril 10 MG TAB*] 10 mg PO TID PRN #9 tab PRN Reason: Pain Methylprednisolone [Medrol Dosepak 4 MG*] 4 mg PO .SEE BRAD INSTRUCTION #1 packet oxyCODONE/Acetamin 5/325 MG* [Percocet 5/325 TAB*] 1 tab PO Q8H PRN #5 tab MDD 3 PRN Reason: Pain Patient Education Materials: Neck Pain (ED) Referrals: Facundo Constantino, [employer]/R&D LAB TECHNICIAN [Primary Care Provider] - Additional Instructions: Take muscle relaxers three times a day for 3 days Take steroid as directed on package starting tomorrow Use ibuprofen or Tylenol for pain every 6 hours ice/heat area, move as much as possible Follow up with primary within 5 days Return to ED if develop any new or worsening symptoms
[2017-04-11 19:21] VITALS: BP 120/69
== END 2017-04-11 19:22 | disposition home or self-care (01) ==
LOC: ED 16:26
DX: M54.2 Cervicalgia (principal); F17.210 Nicotine dependence, cigarettes, uncomplicated
CPT/HCPCS: 72125; 93005; 99282; A9270-GY

== ENCOUNTER 2017-04-21 15:38 | Observation (INO) | payer OTHER ==
[2017-04-21] MEDS ORDERED: Aspirin Low Dose CHEW TAB* 81 MG PO ONE (18:07)
[2017-04-21] MEDS ORDERED: Aspirin Low Dose CHEW TAB* 81 MG ONE (18:49)
[2017-04-21 19:13] LABS: Hematocrit 45 % (35-47); Hemoglobin 14.9 g/dl (12.0-16.0); Mean Corpuscular HGB Conc 33 g/dl (31-36); Mean Corpuscular Hemoglobin 31 pg (27-31); Mean Corpuscular Volume 93 fL (80-97); Mean Platelet Volume 7 um3 (7.4-10.4); Red Blood Count 4.88 10^6/ul (4.0-5.4); Red Cell Distribution Width 14 % (10.5-15); White Blood Count 9.1 10^3/ul (3.5-10.8)
[2017-04-21 19:29] LABS: ALT 13 U/L (7-52); AST 19 U/L (13-39); Albumin 4.3 g/dL (3.2-5.2); Alkaline Phosphatase 79 U/L (34-104); Anion Gap 3 mmol/L (2-11); BUN/Creatinine Ratio 15.3 (8-20); Blood Urea Nitrogen 9 mg/dL (6-24); CO2 Carbon Dioxide 29 mmol/L (22-32); Calcium 8.9 mg/dL (8.6-10.3); Chloride 104 mmol/L (101-111); EGFR African American 141.1 (>60); EGFR Non-African American 109.7 (>60); Globulin 2.9 g/dL (2-4); Glucose 77 mg/dL (70-100); Potassium 3.9 mmol/L (3.5-5.0); Sodium 136 mmol/L (133-145); Total Protein 7.2 g/dL (6.4-8.9)
[2017-04-21 19:30] LABS: Troponin I 0.01 ng/mL (<0.04)
[2017-04-21 19:59] LABS: Lipase 104 U/L (11.0-82.0); Magnesium 2.3 mg/dL (1.9-2.7)
[2017-04-21 20:14] LABS: TSH (Thyroid Stimulating Horm) 1.34 mcIU/mL (0.34-5.60)
--- NOTE | 2017-04-21 20:27 | RAD ---
INDICATION: Headache and left-sided weakness COMPARISON: None. TECHNIQUE: Contiguous axial sections of the brain were obtained from the skull base to the vertex without contrast. FINDINGS: The ventricles, cisterns and sulci are within normal limits. The frias-white matter differentiation is adequately maintained and there is no sulcal effacement. No significant focal abnormality or mass effect is present. There is no evidence for intracranial hemorrhage. No significant focal osseous abnormality is present. The visualized portion of the paranasal sinuses and mastoid air cells appear clear. IMPRESSION: Normal CT of the brain.
--- NOTE | 2017-04-21 20:39 | RAD ---
INDICATION: Chest pain COMPARISON: Chest x-ray dated September 23, 2016 TECHNIQUE: PA and lateral views of the chest were obtained. FINDINGS: The heart and mediastinum are normal in size and contour. The lungs are grossly clear. There is no evidence of large pleural effusion. Visualized bones are normal for the patient's age. There is no radiographic evidence of free air beneath the diaphragm IMPRESSION: No radiographic evidence of acute cardiopulmonary disease.
[2017-04-21] MEDS ORDERED: Senna TAB PO PRN (20:59)
[2017-04-21] MEDS ORDERED: Docusate CAP* 100 MG PO PRN (20:59)
[2017-04-21] MEDS ORDERED: Ondansetron INJ* 2 MG/ML VIAL IV PRN (20:59)
[2017-04-21] MEDS ORDERED: Al Hydrox/Mg Hydrox/Simet LIQ* 30 ML UDC PO PRN (20:59)
[2017-04-21] MEDS ORDERED: Acetaminophen TAB* 325 MG PO PRN (20:59)
[2017-04-21] MEDS ORDERED: Albuterol HFA INHALER* 8 gm MDI INH PRN (21:06)
[2017-04-21] MEDS ORDERED: clonazePAM TAB(*) 0.5 MG PO PRN (21:07)
[2017-04-21] MEDS ORDERED: Benzonatate CAP* 100 MG PO PRN (21:25)
[2017-04-21] MEDS ORDERED: hydrOXYzine HCL TAB* 50 MG PO PRN (21:25)
[2017-04-21] MEDS ORDERED: Methocarbamol TAB* 500 MG PO PRN (22:38)
--- NOTE | 2017-04-21 22:50 | HP ---
CC: Facundo Constantino NP * HISTORY AND PHYSICAL: DATE OF ADMISSION: 04/21/17 TIME OF EVALUATION: 2100. PRIMARY CARE PHYSICIAN: Facundo Constantino NP CHIEF COMPLAINT: Chest pain. HISTORY OF PRESENT ILLNESS: This is a 46-year-old female with past medical history of SVT and Mary-Duong tears with significant laryngopharyngeal reflux disease, who presented to the emergency room after around 2 p.m. this evening when she developed chest pain at rest. The patient states she ate lunch. Short after, she developed chest pain on the left side with left-sided neck pain radiating down her left arm with numbness and tingling of her arm and also a headache. The patient has had chronic issues with her laryngopharyngeal reflux disease, also with a Schatzki's ring and Mary-Duong tear, which she is followed at [facility] for. She states she often vomits every morning, but this has gotten better and she states she does have a history of getting chest pain after eating, but this lasts for a longer time and she was concerned about the left-sided facial numbness and neck pain and radiating down her left arm. She did not have any episodes of vomiting today. She is nauseous. She states the chest pain now comes and goes, sharp, intermittent, followed by coughing and then developing left-sided headache. She states that her palpitations have simply gotten worse over the past few days. She did see Georgia Murillo from Dr. Johns's office on 04/18/17 and who sent her to get lab work to [facility] today, but the patient never ended up doing that. The patient states she has had a stress test more than a year ago that was unremarkable. She was also seen in the emergency room on the for neck pain, had a negative CT spine at that time. The patient denies any worsening cough. No URI symptoms. She has lost about 58 pounds over the past year due to her dysphagia. She was told by [place] [facility] she should liquid diet, but she cannot tolerate that. She denies any lower extremity swelling. No shortness of breath. No fevers or chills. Otherwise, remaining of review of systems is negative. In the emergency room, the patient had labs and imaging, was referred to the hospitalist service for further evaluation. PAST MEDICAL HISTORY: 1. History of SVT, followed by Dr. Johns. 2. Laryngopharyngeal reflux disease. 3. Anxiety. 4. Depression. 5. Admission in September of 2015 for presumed esophageal spasm. As mentioned, the patient is followed at [facility] by [facility] for her Schatzki's ring and Mary-Duong tear history. 6. Chronic back and neck pain. MEDICATIONS: Med record needs to be completed as the patient was able to list me the medications that she religiously takes, but she states she has list of several more that she only takes as needed. 1. Albuterol inhaler 2 puffs every 4 to 6 hours as needed. 2. Gabapentin 300 mg 4 times a day. 3. Zofran liquid q.4 hours as needed. 4. Klonopin 0.5 mg 1 to 2 tabs as needed at bedtime. 5. Digoxin 0.125 mg on the odd days, 2 tablets on the even days. 6. The patient was prescribed a new muscle relaxer, but she has not started taking that yet. 7. Prilosec 20 mg daily or as needed. 8. Seroquel at bedtime as needed. ALLERGIES: No known drug allergies. SOCIAL HISTORY: Patient lives alone, but also stays with her partner. She is a smoker on and off for the past several years. No history of alcohol or illicit drug use. She is unemployed. Her healthcare proxy is her mother, Ronel Bueno, and her friend, Tsering, who is at the bedside. Code status, full code. FAMILY HISTORY: No history of early cardiac disease. Her father is alive and has rheumatic fever. REVIEW OF SYSTEMS: A 14-point review of systems reviewed. Positive pertinent and negative mentioned in the HPI, otherwise negative. PHYSICAL EXAMINATION GENERAL: No acute distress, resting comfortably with her friend at the bedside. VITAL SIGNS: Temperature 98.1, pulse rate 78, respiratory rate 20, oxygen saturation 100% on room air, blood pressure 118/74. HEENT: Head normocephalic. Pupils are equal and reactive, anicteric. Oropharynx, mucous membranes are moist. No erythema or exudate. NECK: Supple. No lymphadenopathy. RESPIRATORY: Diminished breath sounds. No wheezes, rhonchi or rales. CARDIAC: Regular rate and rhythm. No murmurs, rubs or gallops. ABDOMEN: Soft, nontender, nondistended. EXTREMITIES: No clubbing, cyanosis or edema. +2 DPs. NEUROLOGIC: Alert and oriented x3. No focal neurologic deficits. LABORATORY DATA: White count 9.1, hematocrit 14.9, hematocrit 45, platelets 210. D-dimer is less than 200. Sodium is 136, potassium 3.9, chloride 104, bicarbonate 29, BUN 9, creatinine 0.59. Mag is 2.3, troponin is 0.01. Lipase 104. TSH 1.34. Digoxin level is 1. RADIOGRAPHIC DATA: Chest x-ray, no radiographic evidence of acute cardiopulmonary disease. Head CT, normal CT of the brain. EKG shows normal sinus rhythm. There are no significant ST changes. ASSESSMENT: This is a 46-year-old female with past medical history of SVT, laryngopharyngeal reflux disease with history of Mary-Duong tear and esophageal spasm, who presents to emergency room with left-sided chest pain radiating to the neck and arm. Chest pain. Assessment: I suspect this is musculoskeletal. She has a significant amount of neck pain and chronic musculoskeletal issues or this also could be reflux related with her significant history of reflux disease and followed by at [facility]. Less likely cardiac disease as she does have a history of SVT and the chest pain seems to be worsened than it has been in the past. Plan: We will admit her for observation for rule out of acute coronary syndrome. We will put in for nuclear stress test. The patient does not feel that she will be able to do the treadmill test because of the significant neck pain. Continue to trend her troponin, place her on a baby aspirin, check a lipid panel. CHRONIC MEDICAL PROBLEMS: 1. We will need to call for confirm of med rec. 2. Diet, placed her on heart healthy diet, n.p.o. after midnight. 3. DVT prophylaxis. The patient scores low risk. We will encourage ambulation. 4. Code status: Full code. PATIENT TIME: Greater than 60 minutes spent doing the history and physical, more than half the time spent in direct patient contact. [id number]/[facility] #: [id number] MTDD
[2017-04-21] MEDS ORDERED: Gabapentin CAP(*) 300 MG PO ONE (23:00)
[2017-04-21] MEDS ORDERED: Ketorolac INJ* 15 MG/ML 1 ML VIAL IV PUSH PRN (23:14)
--- NOTE | 2017-04-21 23:18 | ED ---
I, Oh,Soohlennieun, scribed for Micha Sharma MD on 04/21/17 at 2031 . HPI Chest Pain - HPI Summary HPI Summary: This 46 y/o female presents to ED for diffuse chest pain since 1400 PM today. Chest pain is described as tightness and constant at time of onset and now intermittent and sharp. Pain does radiate to left side neck. Positive left sided facial numbness, mid upper lower back pain, palpitation, and MOYER. Pt is unsure if mid upper back pain is secondary to her known DDD at cervical spine or chest pain radiating to between her shoulder. She attempted to alleviate pain with heating pad over her shoulder, but had no relief of chest pain. PMHx includes palpitation, which is controlled with digoxin, chronic dysphasia, which has scoped, had nodules removed, and followed up at [facility], and depression /anxiety. Gallbladder intact. She also states that she does not remember her ride into ED well. CP radiating to mid upper back pain. - History of Current Complaint Chief Complaint: EDChestPainROMI Time Seen by Provider: 04/21/17 19:15 Hx Obtained From: Patient, Medical Records Timing: Constant - at time of onset, Intermittent - now Pain Intensity: 7 Pain Scale Used: 0-10 Numeric Chest Pain Location: Diffuse Chest Pain Radiates: Yes Chest Pain Radiates To:: Neck - left sided neck Character: Sharp/Stabbing, Tightness Aggravating Factor(s): Nothing Alleviating Factor(s): Nothing Associated Signs and Symptoms: Positive: Chest Pain, Headaches, Numbness - left sided facial numbness, Palpitations. Negative: Shortness of Breath, Fever - Additional Pertinent History Primary Care Physician: [id number] - Allergy/Home Medications Allergies/Adverse Reactions: Allergies Allergy/AdvReac Type Severity Reaction Status Date / Time No Known Allergies Allergy Verified 09/24/16 01:31 PMH/Surg Hx/FS Hx/Imm Hx Endocrine/Hematology History: Denies: Hx Diabetes, Hx Systemic Lupus Erythematosus Cardiovascular History: Denies: Hx Congestive Heart Failure, Hx Hypertension, Hx Pacemaker/ICD, Other Cardiovascular Problems/Disorders Respiratory History: Reports: Hx Asthma, Hx Pneumonia Denies: Other Respiratory Problems/Disorders GI History: Reports: Hx Gastroesophageal Reflux Disease - ON MEDS PRN, Other GI Disorders - frequent vomiting History: Reports: Hx Kidney Stones - RIGHT SIDE, Other Problems/Disorders - Kidney Stents IN THE PAST Denies: Hx Dialysis, Hx Renal Disease Musculoskeletal History: Denies: Hx Rheumatoid Arthritis, Other Musculoskeletal History Sensory History: Reports: Hx Contacts or Glasses Denies: Hx Hearing Aid Opthamlomology History: Reports: Hx Contacts or Glasses Neurological History: Denies: Other Neuro Impairments/Disorders Psychiatric History: Reports: Hx Anxiety - ON MEDS, Hx Depression - ON MEDS, Hx Panic Disorder - ANXIETY - Cancer History Hx Chemotherapy: No Hx Radiation Therapy: No - Surgical History Surgery Procedure, Year, and Place: RIGHT Wrist Ganglion 1989 @ [facility] [place]; Kidney Stents 1999, [facility] [place] Hx Anesthesia Reactions: No Infectious Disease History: No Infectious Disease History: Reports: Hx of Known/Suspected MRSA Denies: Traveled Outside the [place] in Last 30 Days - Family History Known Family History: Positive: Renal Disease - kidney stones, Other - kidney stones - Social History Alcohol Use: None Hx Substance Use: No Substance Use Type: Reports: None Hx Tobacco Use: Yes Smoking Status (MU): Light Every Day Tobacco Smoker Review of Systems Negative: Fever Positive: Chest Pain Positive: other - Currently menstruating Positive: Headache, Numbness - Left sided facial All Other Systems Reviewed And Are Negative: Yes Physical Exam - Summary Physical Exam Summary: The patient is well-nourished in no acute distress and in no acute pain. The skin is warm and dry and skin color reflects adequate perfusion. HEENT: The head is normocephalic and atraumatic. The pupils are equal and reactive. The conjunctivae are clear and without drainage. Nares are patent and without drainage. Mouth reveals moist mucous membranes and the throat is without erythema and exudate. The external ears are intact. The ear canals are patent and without drainage. The tympanic membranes are intact. Neck is supple with full range of motion and non-tender. There are no carotid bruits. There is no neck vein distension. Respiratory: Chest is non-tender. Lungs are clear to auscultation and breath sounds are symmetrical and equal. Cardiovascular: Heart is regular rate and rhythm. There is no murmur or rub auscultated. Positive reproducible chest pain, which pt states different from her chief complaint. There is no peripheral edema and pulses are symmetrical and equal. Abdomen: The abdomen is soft and non-tender. There are normal bowel sounds heard in all four quadrants and there is no organomegaly palpated. Musculoskeletal: There is no back pain noted. Extremities are non-tender with full range of motion. There is good capillary refill. There is no peripheral edema or calf tenderness elicited. T4 and T8 paraspinal tenderness. Neurological: Patient is alert and oriented to person, place and time. Cranial nerves are grossly intact. The patient has symmetrical motor strength in BLE. Normal heel to chavez. No pronator drift present. Deep tendon reflexes are symmetrical and equal in ALL FOUR EXTREMITIES. Psychiatric: The patient has an appropriate affect and does not exhibit any anxiety or depression. Triage Information Reviewed: Yes Vital Signs On Initial Exam: Initial Vitals Temp Pulse Resp BP Pulse Ox 98.5 F 87 16 125/83 99 04/21/17 15:43 04/21/17 15:43 04/21/17 15:43 04/21/17 15:43 04/21/17 15:43 Vital Signs Reviewed: Yes Diagnostics - Vital Signs Vital Signs Temp Pulse Resp BP Pulse Ox 04/21/17 17:41 98.1 F 69 16 101/48 99 04/21/17 15:43 98.5 F 87 16 125/83 99 - Laboratory Lab Results: Lab Results 04/21/17 Range/Units 19:06 WBC 9.1 (3.5-10.8) 10^3/ul RBC 4.88 (4.0-5.4) 10^6/ul Hgb 14.9 (12.0-16.0) g/dl Hct 45 (35-47) % MCV 93 (80-97) fL MCH 31 (27-31) pg MCHC 33 (31-36) g/dl RDW 14 (10.5-15) % Plt Count 210 (150-450) 10^3/ul MPV 7 L (7.4-10.4) um3 Neut % (Auto) 55.3 (38-83) % Lymph % (Auto) 35.1 (25-47) % [place] % (Auto) 5.8 (1-9) % Eos % (Auto) 2.9 (0-6) % Baso % (Auto) 0.9 (0-2) % Absolute Neuts (auto) 5.0 (1.5-7.7) 10^3/ul Absolute Lymphs (auto) 3.2 (1.0-4.8) 10^3/ul Absolute Monos (auto) 0.5 (0-0.8) 10^3/ul Absolute Eos (auto) 0.3 (0-0.6) 10^3/ul Absolute Basos (auto) 0.1 (0-0.2) 10^3/ul Absolute Nucleated RBC 0 10^3/ul Nucleated RBC % 0 Result Diagrams: 04/21/17 19:06 04/21/17 19:06 Lab Statement: Any lab studies that have been ordered have been reviewed, and results considered in the medical decision making process. - Radiology CXR Xray Interpretation: No Acute Changes Radiology Interpretation Completed By: Radiologist - CT Brain CT Interpretation: No Acute Changes CT Interpretation Completed By: Radiologist - EKG 1602 Cardiac Rate: NL EKG Rhythm: Sinus Rhythm EKG Interpretation: Normal axis. No ST elevation. Re-Evaluation - Re-Evaluation First Eval Re-Evaluation Time: 20:25 Comment: Reviewed lab, CT, and CXR with pt. Pt is agreeable hospital admit. Chest Pain Course/Dx - Chest Pain Differential Diagnosis/HQI/PQRI: Acute OH, ACS - Diagnoses Provider Diagnoses: Chest pain, Headache - Provider Notifications Discussed Care Of Patient With: Celena Fournier Time Discussed With Above Provider: 20:29 Discharge - Discharge Plan Condition: Stable Disposition: ADMITTED TO [facility] documentation as recorded by the Lars sue Soohyun accurately reflects the service I personally performed and the decisions made by , Micha Sharma MD.
[2017-04-22] MEDS: HYDROcodone/ACETAMIN 5-325 MG* 1 TAB PO PRN ×2 (01:50→06:07)
[2017-04-22 02:04] LABS: HDL Cholesterol 82.2 mg/dL
[2017-04-22] MEDS ORDERED: Omeprazole CAP* 20 MG PO SCH (06:00)
[2017-04-22 08:50] VITALS: BP 92/56
[2017-04-22] MEDS ORDERED: Venlafaxine EXT RELEASE CAP* 37.5 MG PO SCH (09:00)
[2017-04-22] MEDS ORDERED: Digoxin TAB* 0.25 MG PO SCH (09:00)
[2017-04-22] MEDS ORDERED: ARIPiprazole TAB* 5 MG PO SCH (09:00)
[2017-04-22] MEDS ORDERED: Gabapentin CAP(*) 300 MG PO SCH ×2 (09:00)
[2017-04-22] MEDS ORDERED: Aspirin EC Low Dose* 81 MG TAB.EC PO SCH (09:00)
[2017-04-22] MEDS ORDERED: Regadenoson* 0.4 MG/5 ML SYRINGE ONE (10:13)
[2017-04-22] MEDS ORDERED: Aminophylline IV* 25 MG/ML 10 ML VIAL ONE (10:16)
--- NOTE | 2017-04-22 11:54 | RAD ---
Edited for charges. INDICATION: Chest pain, LEFT arm pain, face numbness. COMPARISON: No relevant prior exams available on the [facility] [place] [facility] PACS for comparison. TECHNIQUE: 10.300 mCi of Tc-99m Myoview were administered IV. SPECT images of the heart were obtained. Later on the same day. Under the direction of Dr. Carlos, the patient was given an IV injection of a pharmacologic stress agent. Subsequently, the patient was given an IV injection of 24.570 mCi Tc-99m Myoview. SPECT images of the heart were obtained and a gated wall motion study was performed. FINDINGS: Gated wall motion images were obtained at stress and demonstrate wall motion to be within normal limits. The calculated left ventricular ejection fraction is 85 % at stress. Estimated LEFT ventricular end diastolic volume is 55 mL. TID 1.1. Based on review of the attenuation corrected and non corrected images the distribution of radiopharmaceutical within the myocardium on the stress and rest images is within normal limits. No fixed or reversible regions of hypoperfusion evident. IMPRESSION: 1. No evidence for stress induced myocardial ischemia or presence of an infarct. 2. Normal left ventricular wall motion and ejection fraction. ASSESSMENT: LOW RISK. Based on imaging criteria from ACC/AHA 2002 Guideline Update for the Management of Patients With Chronic Stable Angina Table 23. Noninvasive Risk Stratification. MTDD
--- NOTE | 2017-04-22 13:05 | DCNOTE ---
Patient seen this morning after stress test. Reports continued neck pain, no further chest pain, no palpitations. Seems very anxious On exam, RRR, s1 and s2 present, no m/g/r, lungs CTA B/L, and soft, NTND, BS+ NST low risk. Suspect pain is either MSK or neuropathic. Patient already on gabapentin, recommend PT. Discharge home with no medication changes.
[2017-04-23] MEDS ORDERED: Digoxin TAB* 0.125 MG PO SCH (09:00)
== END 2017-04-22 13:15 | disposition home or self-care (01) ==
LOC: ED 15:38 → MEDTELE 20:59
PROVIDERS: ADMIT Pediatrics; ATTEND Hospitalist
DX: R07.9 Chest pain, unspecified (principal); I47.1 Supraventricular tachycardia; K22.6 Gastro-esophageal laceration-hemorrhage syndrome; K21.9 Gastro-esophageal reflux disease without esophagitis; R20.0 Anesthesia of skin; M54.2 Cervicalgia; M79.602 Pain in left arm; R11.0 Nausea; R51 Headache; R53.1 Weakness; F41.8 Other specified anxiety disorders; Z79.899 Other long term (current) drug therapy; F17.210 Nicotine dependence, cigarettes, uncomplicated
CPT/HCPCS: 36415; 70450; 71020; 78452; 80053; 80061; 80162; 83605; 83690; 83735; 84443; 84484; 84702; 85025; 85379; 93005; 93017; 99284; A9270-GY; A9502; G0378; J0280; J1885; J2785

== ENCOUNTER 2017-06-30 03:56 | Emergency (ER) | payer OTHER ==
[2017-06-30] MEDS ORDERED: Ketorolac INJ* 30 MG/ML 1 ML VIAL IV ONE (05:18)
[2017-06-30] MEDS ORDERED: Morphine INJ* 4 MG/ML 1 ML CARPUJECT IV ONE ×2 (05:18→08:19)
[2017-06-30] MEDS ORDERED: Ondansetron INJ* 2 MG/ML VIAL IV ONE (05:18)
[2017-06-30] MEDS ORDERED: NS 0.9% 1000 ML* 2,000 ML IV ONE (05:18)
[2017-06-30 06:34] LABS: Hematocrit 42 % (35-47); Hemoglobin 13.8 g/dl (12.0-16.0); Mean Corpuscular HGB Conc 33 g/dl (31-36); Mean Corpuscular Hemoglobin 31 pg (27-31); Mean Corpuscular Volume 91 fL (80-97); Mean Platelet Volume 8 um3 (7.4-10.4); Red Blood Count 4.54 10^6/ul (4.0-5.4); Red Cell Distribution Width 14 % (10.5-15); White Blood Count 10.1 10^3/ul (3.5-10.8)
[2017-06-30 07:33] LABS: Albumin 3.9 g/dL (3.2-5.2); BUN/Creatinine Ratio 26.3 (8-20); C Reactive Protein 1.32 mg/L (< 5.00); Calcium 8.5 mg/dL (8.6-10.3); EGFR African American 105.4 (>60); EGFR Non-African American 81.9 (>60); Globulin 2.6 g/dL (2-4); Potassium 4.1 mmol/L (3.5-5.0); Total Bilirubin 0.3 mg/dL (0.2-1.0); Total Protein 6.5 g/dL (6.4-8.9)
[2017-06-30 07:53] LABS: Urine Bacteria 1+ (Absent); Urine Bilirubin Negative (Negative); Urine Glucose Negative (Negative); Urine Nitrite Negative (Negative)
[2017-06-30] MEDS ORDERED: Diazepam TAB(*) 5 MG PO ONE (08:19)
--- NOTE | 2017-06-30 08:29 | ED ---
Roland Liu Nikita, scribed for Kurt Winkler MD on 06/30/17 at 0533 . Back Pain - HPI Summary HPI Summary: This patient is a 46 year old F BIBA to ED with a chief complaint of lower R back pain since 1 day ago. The CC is described as radiating to right LE, mild lower back pain at onset (has worsened since), feeling like she was getting a kidney stone. The patient rates the pain 9/10 in severity. Symptoms aggravated by movement and sounds. Symptoms alleviated by nothing (took Ibuprofen and heating pad last night). Patient reports MOYER, tightness between shoulder blades ( because of bone spurs), weakness/numbness in R arm and R leg and falling (3x since 3 weeks ago from steroid injection), pain in R arm and R leg (since 2 months ago), sharp pain between 1st and 2nd toe in R foot, ecchymosis in inner groin area, and blurred vision. Patient denies hematuria. - History of Current Complaint Chief Complaint: EDBackInjuryPain Stated Complaint: BACK PAIN Time Seen by Provider: 06/30/17 04:51 Hx Obtained From: Patient Onset/Duration: Sudden Onset, Lasting Days, Still Present Onset/Duration: Started Days Ago, Still Present Timing: Constant Back Pain Location: Is Discrete @ - R lower back, Radiates To - R leg Severity Initially: Severe Severity Currently: Severe Pain Intensity: 9 Pain Scale Used: 0-10 Numeric Character: Sharp Aggravating Symptom(s): Movement, Other - sounds (MOYER) Alleviating Symptom(s): Nothing Associated Signs And Symptoms: Positive: Other - Patient reports MOYER, tightness between shoulder blades (because of bone spurs), weakness/numbness in R arm and R leg and falling (3x since 3 weeks ago from steroid injection), pain in R arm and R leg (since 2 months ago), sharp pain between 1st and 2nd toe in R foot, ecchymosis in inner groin area, and blurred vision. Patient denies hematuria. - Allergies/Home Medications Allergies/Adverse Reactions: Allergies Allergy/AdvReac Type Severity Reaction Status Date / Time No Known Allergies Allergy Verified 06/09/17 14:08 PMH/Surg Hx/FS Hx/Imm Hx Endocrine/Hematology History: Denies: Hx Diabetes, Hx Systemic Lupus Erythematosus Cardiovascular History: Reports: Other Cardiovascular Problems/Disorders - HX SVT, palpitations, chest pain Denies: Hx Congestive Heart Failure, Hx Hypertension, Hx Pacemaker/ICD Respiratory History: Reports: Hx Pneumonia Denies: Hx Asthma, Other Respiratory Problems/Disorders GI History: Reports: Hx Gastroesophageal Reflux Disease, Hx Hiatal Hernia, Other GI Disorders - frequent vomiting, dysphagia History: Reports: Hx Kidney Stones, Other Problems/Disorders - Kidney Stents IN THE PAST Denies: Hx Dialysis, Hx Renal Disease Musculoskeletal History: Reports: Hx Arthritis, Hx Back Problems, Hx Fibromyalgia, Other Musculoskeletal History - chronic pain Denies: Hx Rheumatoid Arthritis Sensory History: Reports: Hx Contacts or Glasses Denies: Hx Hearing Aid Opthamlomology History: Reports: Hx Contacts or Glasses Neurological History: Reports: Hx Headaches Denies: Other Neuro Impairments/Disorders - PAIN CLINIC PT Psychiatric History: Reports: Hx Anxiety, Hx Depression, Hx Panic Disorder, Hx Post Traumatic Stress Disorder - Cancer History Hx Chemotherapy: No Hx Radiation Therapy: No - Surgical History Surgery Procedure, Year, and Place: RIGHT Wrist Ganglion 1989 @ [facility] [place]; Kidney Stents 1999, [facility] [place];. endoscopical dilation 2016 Hx Anesthesia Reactions: No Infectious Disease History: No Infectious Disease History: Reports: Hx of Known/Suspected MRSA Denies: Traveled Outside the [place] in Last 30 Days - Family History Known Family History: Positive: Renal Disease - kidney stones, Other - kidney stones - Social History Alcohol Use: None Hx Substance Use: No Substance Use Type: Reports: None Hx Tobacco Use: Yes Smoking Status (MU): Light Every Day Tobacco Smoker Amount Used/How Often: 5-6 a day cigarettes Review of Systems Positive: Blurred Vision Negative: hematuria Positive: Other - tightness between shoulder blades Positive: Bruising - ecchymosis in inner groin area Neurological: Other - falling (3x since 3 weeks ago from steroid injection), ), pain in R arm and R leg (since 2 months ago), sharp pain between 1st and 2nd toe in R foot Positive: Headache, Weakness - R arm and R leg, Numbness - R arm and R leg All Other Systems Reviewed And Are Negative: Yes Physical Exam Triage Information Reviewed: Yes Vital Signs On Initial Exam: Initial Vitals Temp Pulse Resp BP Pulse Ox 97.9 F 71 16 112/77 99 06/30/17 04:01 06/30/17 04:01 06/30/17 04:01 06/30/17 04:01 06/30/17 04:01 Vital Signs Reviewed: Yes Appearance: Positive: Well-Appearing, Pain Distress - moderate Skin: Positive: Warm, Skin Color Reflects Adequate Perfusion, Dry Head/Face: Positive: Normal Head/Face Inspection Eyes: Positive: EOMI, NAVIN ENT: Positive: Normal ENT inspection Neck: Positive: Supple, Nontender Respiratory/Lung Sounds: Positive: Clear to Auscultation, Breath Sounds Present Cardiovascular: Positive: RRR Abdomen Description: Positive: Nontender, Soft Bowel Sounds: Positive: Present Musculoskeletal: Positive: Other - decreased sensation in R leg, normal sensation in L leg; Pain with any movement of R leg, decreased strength in R leg (difficult to discern if its from pain or from actual weakness), Patellar reflex 1+ on R and 2+ on left Neurological: Positive: Normal, Sensory/Motor Intact, Alert, Oriented to Person Place, Time, CN Intact II-III Psychiatric: Positive: Affect/Mood Appropriate - [place] Coma Scale Coma Scale Total: 15 Diagnostics - Vital Signs Vital Signs Temp Pulse Resp BP Pulse Ox 06/30/17 04:01 97.9 F 71 16 112/77 99 - Laboratory Lab Results: Lab Results 06/30/17 06/30/17 06/30/17 Range/Units 06:15 06:15 06:15 WBC 10.1 (3.5-10.8) 10^3/ul RBC 4.54 (4.0-5.4) 10^6/ul Hgb 13.8 (12.0-16.0) g/dl Hct 42 (35-47) % MCV 91 (80-97) fL MCH 31 (27-31) pg MCHC 33 (31-36) g/dl RDW 14 (10.5-15) % Plt Count 238 (150-450) 10^3/ul MPV 8 (7.4-10.4) um3 Neut % (Auto) 49.7 (38-83) % Lymph % (Auto) 41.3 (25-47) % Tyrrell % (Auto) 6.0 (1-9) % Eos % (Auto) 2.5 (0-6) % Baso % (Auto) 0.5 (0-2) % Absolute Neuts (auto) 5.0 (1.5-7.7) 10^3/ul Absolute Lymphs (auto) 4.2 (1.0-4.8) 10^3/ul Absolute Monos (auto) 0.6 (0-0.8) 10^3/ul Absolute Eos (auto) 0.2 (0-0.6) 10^3/ul Absolute Basos (auto) 0.1 (0-0.2) 10^3/ul Absolute Nucleated RBC 0 10^3/ul Nucleated RBC % 0 INR (Anticoag Therapy) 0.73 L (0.89-1.11) APTT 26.8 (26.0-36.3) seconds Sodium 136 (133-145) mmol/L Potassium 4.1 (3.5-5.0) mmol/L Chloride 103 (101-111) mmol/L Carbon Dioxide 26 (22-32) mmol/L Anion Gap 7 (2-11) mmol/L BUN 20 (6-24) mg/dL Creatinine 0.76 (0.51-0.95) mg/dL Est GFR ( Amer) 105.4 (>60) Est GFR (Non-Af Amer) 81.9 (>60) BUN/Creatinine Ratio 26.3 H (8-20) Glucose 101 H (70-100) mg/dL Lactic Acid (0.5-2.0) mmol/L Calcium 8.5 L (8.6-10.3) mg/dL Total Bilirubin 0.30 (0.2-1.0) mg/dL AST 20 (13-39) U/L ALT 18 (7-52) U/L Alkaline Phosphatase 68 (34-104) U/L C-Reactive Protein 1.32 (< 5.00) mg/L Total Protein 6.5 (6.4-8.9) g/dL Albumin 3.9 (3.2-5.2) g/dL Globulin 2.6 (2-4) g/dL Albumin/Globulin Ratio 1.5 (1-3) Lipase 79 (11.0-82.0) U/L Urine Color Urine Appearance Urine pH (5-9) Ur Specific Entiat (1.010-1.030) Urine Protein (Negative) Urine Ketones (Negative) Urine Blood (Negative) Urine Nitrate (Negative) Urine Bilirubin (Negative) Urine Urobilinogen (Negative) Ur Leukocyte Esterase (Negative) Urine WBC (Auto) (Absent) Urine RBC (Auto) (Absent) Ur Squamous Epith Cells (Absent) Urine Bacteria (Absent) Urine Glucose (Negative) 06/30/17 06/30/17 Range/Units 06:15 07:30 WBC (3.5-10.8) 10^3/ul RBC (4.0-5.4) 10^6/ul Hgb (12.0-16.0) g/dl Hct (35-47) % MCV (80-97) fL MCH (27-31) pg MCHC (31-36) g/dl RDW (10.5-15) % Plt Count (150-450) 10^3/ul MPV (7.4-10.4) um3 Neut % (Auto) (38-83) % Lymph % (Auto) (25-47) % Tyrrell % (Auto) (1-9) % Eos % (Auto) (0-6) % Baso % (Auto) (0-2) % Absolute Neuts (auto) (1.5-7.7) 10^3/ul Absolute Lymphs (auto) (1.0-4.8) 10^3/ul Absolute Monos (auto) (0-0.8) 10^3/ul Absolute Eos (auto) (0-0.6) 10^3/ul Absolute Basos (auto) (0-0.2) 10^3/ul Absolute Nucleated RBC 10^3/ul Nucleated RBC % INR (Anticoag Therapy) (0.89-1.11) APTT (26.0-36.3) seconds Sodium (133-145) mmol/L Potassium (3.5-5.0) mmol/L Chloride (101-111) mmol/L Carbon Dioxide (22-32) mmol/L Anion Gap (2-11) mmol/L BUN (6-24) mg/dL Creatinine (0.51-0.95) mg/dL Est GFR ( Amer) (>60) Est GFR (Non-Af Amer) (>60) BUN/Creatinine Ratio (8-20) Glucose (70-100) mg/dL Lactic Acid 1.5 (0.5-2.0) mmol/L Calcium (8.6-10.3) mg/dL Total Bilirubin (0.2-1.0) mg/dL AST (13-39) U/L ALT (7-52) U/L Alkaline Phosphatase (34-104) U/L C-Reactive Protein (< 5.00) mg/L Total Protein (6.4-8.9) g/dL Albumin (3.2-5.2) g/dL Globulin (2-4) g/dL Albumin/Globulin Ratio (1-3) Lipase (11.0-82.0) U/L Urine Color Yellow Urine Appearance Cloudy Urine pH 6.0 (5-9) Ur Specific Entiat 1.020 (1.010-1.030) Urine Protein 1+(30 mg/dl) H (Negative) Urine Ketones Negative (Negative) Urine Blood 2+ H (Negative) Urine Nitrate Negative (Negative) Urine Bilirubin Negative (Negative) Urine Urobilinogen Negative (Negative) Ur Leukocyte Esterase 3+ H (Negative) Urine WBC (Auto) 3+(>20/hpf) H (Absent) Urine RBC (Auto) 3+(>10/hpf) H (Absent) Ur Squamous Epith Cells Present H (Absent) Urine Bacteria 1+ H (Absent) Urine Glucose Negative (Negative) Result Diagrams: 06/30/17 06:15 06/30/17 06:15 Lab Statement: Any lab studies that have been ordered have been reviewed, and results considered in the medical decision making process. - CT L-spine CT CT Interpretation Completed By: Radiologist - No lumbar spine fracture. ED physician has reviewed this radiology report and agrees. CT abd/pel CT Interpretation Completed By: Radiologist - No acute findings. ED physician has reviewed this radiology report and agrees. Back Pain Course/Dx - Course Assessment/Plan: This patient is a 46 year old F BIBA to ED with a chief complaint of lower R back pain since 1 day ago. The CC is described as radiating to right LE, mild lower back pain at onset (has worsened since), feeling like she was getting a kidney stone. The patient rates the pain 9/10 in severity. Symptoms aggravated by movement and sounds. Symptoms alleviated by nothing (took Ibuprofen and heating pad last night). Patient reports MOYER, tightness between shoulder blades (because of bone spurs), weakness/numbness in R arm and R leg and falling (3x since 3 weeks ago from steroid injection), pain in R arm and R leg (since 2 months ago), sharp pain between 1st and 2nd toe in R foot, ecchymosis in inner groin area, and blurred vision. Patient denies hematuria. L-spine CT reveals no lumbar spine fracture. CT abd/pel reveals no acute findings. ED physician has reviewed this radiology report and agrees. In the ED course, pt was given fluids and pain medication. Medications reviewed. Pt will be discharged. Pt is agreeable with this plan. DISCUSSED RESULTS WITH PATIENT. SOME IMPROVEMENT IN ED. STRENGTH 5/5 IN BOTH ARMS AND LEGS AT DISCHARGE. WE DISCUSSED WHN TAKING THE VALIUM, SHE IS NOT TO MIX IT WITH KLONOPIN OR MUSCLE RELAXERS. F/U PMD; WILL RETURN IF WORSE OR ANY QUESTIONS/ CONCERNS. - Diagnoses Provider Diagnoses: Low back pain Discharge - Discharge Plan Condition: Stable Disposition: HOME Prescriptions: Diazepam TAB(*) [Valium TAB(*)] 5 mg PO TID PRN #10 tab MDD 3 PRN Reason: Pain Patient Education Materials: Acute Low Back Pain (ED) Referrals: Facundo Constantino, HEAD AND NECK SURGEON [Primary Care Provider] - Additional Instructions: FOLLOW UP WITH YOUR DOCTOR. WHEN YOU TAKE THE VALIUM, DO NOT TAKE IT WITH YOUR KLONOPIN OR WITH ANY MUSCLE RELAXERS. RETURN TO THE EMERGENCY DEPARTMENT FOR ANY WORSENING OF YOUR CONDITION; PAIN, WEAKNESS, NUMBNESS, DIFFICULTY CONTROLLING URINE OR BOWEL OR QUESTIONS OR CONCERNS. The documentation as recorded by the Roland sue Nikita accurately reflects the service I personally performed and the decisions made by me, Kurt Winkler MD.
[2017-06-30] MEDS ORDERED: cefTRIAXone(*) 1 GM in NS 0.9% 50 ML* 50 ML IVPB ONE (08:31)
--- NOTE | 2017-06-30 08:55 | RAD ---
CLINICAL HISTORY: Right worse in left low back pain COMPARISON: CT abdomen pelvis dated December 19, 2012 TECHNIQUE: Noncontrast CT examination of the abdomen and pelvis from the lung bases through the initial tuberosities. Dedicated images and image reformats of the lumbar spine were created and independently reviewed as well. FINDINGS: VISUALIZED LUNG BASES: The visualized lung bases are grossly clear. There is no pleural effusion. ABDOMEN AND PELVIS: Evaluation of the solid organs and vasculature is limited without intravenous contrast. The liver, spleen, pancreas and adrenal glands are grossly normal in appearance. The gallbladder is normal. The kidneys are normal in appearance without focal mass, calcification or signs of hydronephrosis. Evaluation of the gastrointestinal tract is limited without oral contrast. The small and large bowel are not distended.The patient's normal appendix is identified in the right lower quadrant measuring 6 mm in diameter (axial image 53). There is no gross retroperitoneal or mesenteric lymphadenopathy. The pelvic viscera is normal in appearance. The abdominal aorta and iliac arteries are normal in course and diameter. Mild degenerative changes of the lower thoracic and lumbar spine includes loss of intervertebral disc height. There is right-sided pars interarticularis defect at L5/S1. IMPRESSION: 1. Stable, nondisplaced pars interarticularis defect at the right side L5/S1. 2. Otherwise no CT apparent abnormalities that would account for the patient's clinical presentation.
[2017-06-30 09:29] VITALS: BP 114/58
== END 2017-06-30 09:34 | disposition home or self-care (01) ==
LOC: ED 03:56
DX: M54.5 Low back pain (principal); R51 Headache; H53.8 Other visual disturbances; F17.210 Nicotine dependence, cigarettes, uncomplicated; R53.1 Weakness
CPT/HCPCS: 36415; 72131; 74176; 80053; 81003; 81015; 83605; 83690; 85025; 85610; 85730; 86140; 87086; 96374; 96375; 99283; A9270-GY; J0696; J1885; J2270; J2405

== ENCOUNTER 2017-11-05 23:27 | Emergency (ER) | payer OTHER ==
[2017-11-06] MEDS ORDERED: Al Hydrox/Mg Hydrox/Simet LIQ* 30 ML UDC PO ONE (00:05)
[2017-11-06] MEDS ORDERED: Famotidine TAB* 20 MG PO ONE (00:05)
[2017-11-06] MEDS ORDERED: Lidocaine 2% VISCOUS* 15 ML UDC PO ONE (00:06)
[2017-11-06 00:20] LABS: ABS Basophils 0.1 10^3/ul (0-0.2); ABS Eosinophils 0.1 10^3/ul (0-0.6); ABS Lymphocytes 2.8 10^3/ul (1.0-4.8); ABS Monocytes 0.6 10^3/ul (0-0.8); ABS Neutrophils 7.5 10^3/ul (1.5-7.7); ABS Nucleated RBC 0 10^3/ul; Hematocrit 44 % (35-47); Hemoglobin 14.7 g/dl (12.0-16.0); Lymphocyte % 25.6 % (25-47); Mean Corpuscular HGB Conc 34 g/dl (31-36); Mean Corpuscular Hemoglobin 31 pg (27-31); Mean Corpuscular Volume 91 fL (80-97); Mean Platelet Volume 8 um3 (7.4-10.4); Nucleated Red Blood Cells % 0.1; Platelet Count 193 10^3/ul (150-450); Red Cell Distribution Width 14 % (10.5-15); White Blood Count 11.1 10^3/ul (3.5-10.8)
[2017-11-06 00:27] LABS: INR 0.82 (0.77-1.02)
[2017-11-06 00:35] LABS: EGFR Non-African American 80.4 (>60)
[2017-11-06 02:03] VITALS: BP 101/42
--- NOTE | 2017-11-06 04:09 | ED ---
Branden Liu Jennifer, scribed for Dony Zhu MD on 11/06/17 at 0003 . Complex/Multi-Sys Presentation - HPI Summary HPI Summary: The patient is a 47 year old female who presents with shooting pain between her shoulders that began 30-45 minutes ago. She describes the pain comes and goes and radiates to the front around the breasts and into the jaw. She says the pain is sharp/stabbing and feels like the pain of a kidney stone. The patient explains that she has a history of dysphagia and chronic vomiting for three years. She received botox injections through an endoscope at [facility] five days ago, which has relieved her frequent vomiting. The patient additionally felt weak and fell four days ago after starting Lexapro. She also complains of difficulty breathing. She is on Digoxin. She received four aspirin tablets in the ambulance. - History Of Current Complaint Chief Complaint: EDChestWallPain Time Seen by Provider: 11/05/17 23:49 Hx Obtained From: Patient Onset/Duration: Sudden Onset, Lasting Minutes - 30-45 minutes ago, Still Present Timing: Intermittent, Lasting: - comes and goes quickly Severity Currently: None Severity Initially: Mild Character: Sharp Associated Signs And Symptoms: Positive: Other - pain between shoulders, weakness, difficulty breathing - Allergies/Home Medications Allergies/Adverse Reactions: Allergies Allergy/AdvReac Type Severity Reaction Status Date / Time No Known Allergies Allergy Verified 09/18/17 10:24 PMH/Surg Hx/FS Hx/Imm Hx Endocrine/Hematology History: Denies: Hx Diabetes, Hx Systemic Lupus Erythematosus Cardiovascular History: Reports: Other Cardiovascular Problems/Disorders - HX SVT, palpitations, chest pain Denies: Hx Congestive Heart Failure, Hx Hypertension, Hx Pacemaker/ICD Respiratory History: Reports: Hx Pneumonia Denies: Hx Asthma, Other Respiratory Problems/Disorders GI History: Reports: Hx Gastroesophageal Reflux Disease, Hx Hiatal Hernia, Other GI Disorders - frequent vomiting, dysphagia History: Reports: Hx Kidney Stones, Other Problems/Disorders - Kidney Stents IN THE PAST Denies: Hx Dialysis, Hx Renal Disease Musculoskeletal History: Reports: Hx Arthritis, Hx Back Problems, Hx Fibromyalgia, Other Musculoskeletal History - chronic pain Denies: Hx Rheumatoid Arthritis Sensory History: Reports: Hx Contacts or Glasses Denies: Hx Hearing Aid Opthamlomology History: Reports: Hx Contacts or Glasses Neurological History: Reports: Hx Headaches Denies: Other Neuro Impairments/Disorders - PAIN CLINIC PT Psychiatric History: Reports: Hx Anxiety, Hx Depression, Hx Post Traumatic Stress Disorder Denies: Hx Panic Disorder - Cancer History Hx Chemotherapy: No Hx Radiation Therapy: No - Surgical History Surgery Procedure, Year, and Place: [place] [facility] [place] [facility] [place]. endoscopical dilation 2016 Hx Anesthesia Reactions: No Infectious Disease History: No Infectious Disease History: Reports: Hx of Known/Suspected MRSA Denies: Traveled Outside the [place] in Last 30 Days - Family History Known Family History: Positive: Renal Disease - kidney stones, Other - kidney stones - Social History Alcohol Use: None Hx Substance Use: No Substance Use Type: Reports: None Hx Tobacco Use: Yes Smoking Status (MU): Light Every Day Tobacco Smoker Amount Used/How Often: 5-6 a day cigarettes Review of Systems Positive: Other - Difficulty breathing Positive: Myalgia - pain between shoulder blades that radiates to front around breasts and up to jaw Positive: Weakness All Other Systems Reviewed And Are Negative: Yes Physical Exam - Summary Physical Exam Summary: Appearance: Well appearing, no pain distress Skin: warm, dry, reflects adequate perfusion Head/face: normal Eyes: EOMI, NAVIN ENT: normal Neck: supple, non-tender Respiratory: CTA, breath sounds present Cardiovascular: RRR, pulses symmetrical Abdomen: non-tender, soft Bowel: present Musculoskeletal: normal, strength/ROM intact Neuro: normal, sensory motor intact, A&Ox3 Triage Information Reviewed: Yes Vital Signs On Initial Exam: Initial Vitals Temp Pulse Resp BP Pulse Ox 97.9 F 70 16 116/66 99 11/05/17 23:48 11/05/17 23:48 11/05/17 23:48 11/05/17 23:48 11/05/17 23:48 Vital Signs Reviewed: Yes Diagnostics - Vital Signs Vital Signs Temp Pulse Resp BP Pulse Ox 11/05/17 23:48 97.9 F 70 16 116/66 99 - Laboratory Lab Results: Lab Results 11/06/17 11/06/17 11/06/17 Range/Units 00:10 00:10 00:10 WBC 11.1 H (3.5-10.8) 10^3/ul RBC 4.80 (4.0-5.4) 10^6/ul Hgb 14.7 (12.0-16.0) g/dl Hct 44 (35-47) % MCV 91 (80-97) fL MCH 31 (27-31) pg MCHC 34 (31-36) g/dl RDW 14 (10.5-15) % Plt Count 193 (150-450) 10^3/ul MPV 8 (7.4-10.4) um3 Neut % (Auto) 67.2 (38-83) % Lymph % (Auto) 25.6 (25-47) % Medina % (Auto) 5.3 (1-9) % Eos % (Auto) 1.0 (0-6) % Baso % (Auto) 0.9 (0-2) % Absolute Neuts (auto) 7.5 (1.5-7.7) 10^3/ul Absolute Lymphs (auto) 2.8 (1.0-4.8) 10^3/ul Absolute Monos (auto) 0.6 (0-0.8) 10^3/ul Absolute Eos (auto) 0.1 (0-0.6) 10^3/ul Absolute Basos (auto) 0.1 (0-0.2) 10^3/ul Absolute Nucleated RBC 0 10^3/ul Nucleated RBC % 0.1 INR (Anticoag Therapy) 0.82 (0.77-1.02) D-Dimer, Quantitative < 200 (Less Than 230) ng/mL Sodium 135 (133-145) mmol/L Potassium 4.0 (3.5-5.0) mmol/L Chloride 101 (101-111) mmol/L Carbon Dioxide 29 (22-32) mmol/L Anion Gap 5 (2-11) mmol/L BUN 26 H (6-24) mg/dL Creatinine 0.77 (0.51-0.95) mg/dL Est GFR ( Amer) 103.3 (>60) Est GFR (Non-Af Amer) 80.4 (>60) BUN/Creatinine Ratio 33.8 H (8-20) Glucose 100 (70-100) mg/dL Lactic Acid (0.5-2.0) mmol/L Calcium 9.3 (8.6-10.3) mg/dL Total Bilirubin 0.30 (0.2-1.0) mg/dL AST 18 (13-39) U/L ALT 15 (7-52) U/L Alkaline Phosphatase 62 (34-104) U/L Troponin I 0.00 (<0.04) ng/mL Total Protein 6.6 (6.4-8.9) g/dL Albumin 3.9 (3.2-5.2) g/dL Globulin 2.7 (2-4) g/dL Albumin/Globulin Ratio 1.4 (1-3) Digoxin 0.6 L (0.8-2.0) ng/ml 11/06/17 Range/Units 00:10 WBC (3.5-10.8) 10^3/ul RBC (4.0-5.4) 10^6/ul Hgb (12.0-16.0) g/dl Hct (35-47) % MCV (80-97) fL MCH (27-31) pg MCHC (31-36) g/dl RDW (10.5-15) % Plt Count (150-450) 10^3/ul MPV (7.4-10.4) um3 Neut % (Auto) (38-83) % Lymph % (Auto) (25-47) % Medina % (Auto) (1-9) % Eos % (Auto) (0-6) % Baso % (Auto) (0-2) % Absolute Neuts (auto) (1.5-7.7) 10^3/ul Absolute Lymphs (auto) (1.0-4.8) 10^3/ul Absolute Monos (auto) (0-0.8) 10^3/ul Absolute Eos (auto) (0-0.6) 10^3/ul Absolute Basos (auto) (0-0.2) 10^3/ul Absolute Nucleated RBC 10^3/ul Nucleated RBC % INR (Anticoag Therapy) (0.77-1.02) D-Dimer, Quantitative (Less Than 230) ng/mL Sodium (133-145) mmol/L Potassium (3.5-5.0) mmol/L Chloride (101-111) mmol/L Carbon Dioxide (22-32) mmol/L Anion Gap (2-11) mmol/L BUN (6-24) mg/dL Creatinine (0.51-0.95) mg/dL Est GFR ( Amer) (>60) Est GFR (Non-Af Amer) (>60) BUN/Creatinine Ratio (8-20) Glucose (70-100) mg/dL Lactic Acid 1.0 (0.5-2.0) mmol/L Calcium (8.6-10.3) mg/dL Total Bilirubin (0.2-1.0) mg/dL AST (13-39) U/L ALT (7-52) U/L Alkaline Phosphatase (34-104) U/L Troponin I (<0.04) ng/mL Total Protein (6.4-8.9) g/dL Albumin (3.2-5.2) g/dL Globulin (2-4) g/dL Albumin/Globulin Ratio (1-3) Digoxin (0.8-2.0) ng/ml Result Diagrams: 11/06/17 00:10 11/06/17 00:10 Lab Statement: Any lab studies that have been ordered have been reviewed, and results considered in the medical decision making process. - Radiology CXR Xray Interpretation: No Acute Changes - Normal mediastinum. No acute pulmonary disease. Radiology Interpretation Completed By: ED Physician - EKG 00:00 Cardiac Rate: NL EKG Rhythm: Sinus Rhythm - [address] Segment: Normal EKG Interpretation: Normal axis intervals Re-Evaluation - Re-Evaluation First Eval Re-Evaluation Time: 02:01 Change: Improved Comment: The patient is feeling much better. She hasn't had any pain. Complex Multi-Symp Course/Dx Course Of Treatment: sharp, quick, stabby CP after esophageal procedure. Well pt with no pain here following asa admin. GI meds given here. ECG, trop and ddimer neg. Likely spasm. F/U GI and PMD. D/C with no sx after many hr ED observation. - Diagnoses Differential Diagnoses/HQI/PQRI: Other - Cardiac, GI, Resp including pneumonia/ PE Provider Diagnoses: Atypical chest pain, Esophageal spasm Discharge - Discharge Plan Condition: Good Disposition: HOME Prescriptions: Famotidine TAB* [Pepcid 20 MG TAB*] 20 mg PO BID #20 tab Patient Education Materials: Chest Pain (ED), Esophageal Spasm (ED) Referrals: Facundo Constantino LEGAL ADMINISTRATIVE ASSISTANT [Primary Care Provider] - Additional Instructions: Call in the morning for an appt with your GI doctor. Return with repeat symptoms , worse, new symptoms or other concerns. The documentation as recorded by the Branden sue Jennifer accurately reflects the service I personally performed and the decisions made by me, Dony Zhu MD.
--- NOTE | 2017-11-06 07:32 | RAD ---
INDICATION: Chest pain. COMPARISON: Comparison is made with a prior chest x-ray study from April 21, 2017. TECHNIQUE: A portable view of the chest was obtained. FINDINGS: Cardiac and mediastinal contours appear to be within normal limits. The lungs are clear. No pleural effusion is seen. IMPRESSION: NO EVIDENCE FOR ACUTE DISEASE.
== END 2017-11-06 02:16 | disposition home or self-care (01) ==
LOC: ED 23:27
DX: R07.89 Other chest pain (principal); K22.4 Dyskinesia of esophagus; K21.9 Gastro-esophageal reflux disease without esophagitis; K44.9 Diaphragmatic hernia without obstruction or gangrene; Z87.442 Personal history of urinary calculi; F41.9 Anxiety disorder, unspecified; F32.9 Major depressive disorder, single episode, unspecified; F43.10 Post-traumatic stress disorder, unspecified; F17.210 Nicotine dependence, cigarettes, uncomplicated
CPT/HCPCS: 36415; 71045; 80053; 80162; 83605; 84484; 85025; 85379; 85610; 93005; 99284; A9270-GY

== ENCOUNTER → 2018-10-20 01:27 | Emergency (ER) | payer OTHER ==
[~2018-10-20 01:27] MED LIST: Glucagon* 1 MG VIAL IV ONE; LORazepam INJ* 2 MG/ML 1 ML VIAL IV PUSH ONE; Pantoprazole IV* 40 MG IV ONE
--- OUTSIDE RECORDS SUMMARY | 2018-10-20 01:34 | XMS REPORT ---
:1970 Author Organization [employer] [facility] Team Providers Name Role Phone Justen Tomlinson Unavailable Unavailable PROBLEMS Unknown Problems ALLERGIES No Information ENCOUNTERS Encounter Location Date Diagnosis [place] [facility] [address] [place] [address] Oct, [address] Sep, [address] [facility] [address] [place] [address] Sep, [place] [facility] [address] [place] [address] Aug, [address] Aug, [address] [facility] [address] [place] [address] Aug, [facility] [address] [place] [address] Jul, [address] Jul, [address] [facility] [address] [place] [address] Jun, [place] [facility] [address] [place] [address] Jun, [address] May, [address] Apr, [address] [facility] [address] [place] [address] Apr, [facility] [address] [place] [address] Feb, [place] [facility] [address] [place] [address] Dec, [address] Nov, [address] Nov, [address] [facility] [address] [place] [address] Sep, [facility] [address] [place], [place] Sep, [address] [address] Jul, [address] [address] Jul, [place] [id number] [place], [place] Dec, [address] [address] Dec, [address] [address] Dec, [address] [address] Sep, [address] [address] May, [address] [address] Apr, [address] [address] Apr, [address] [address] Apr, [place] [id number] [facility] [address] [place], [place] Mar, [address] IMMUNIZATIONS No Known Immunizations SOCIAL HISTORY Never Assessed REASON FOR REFERRAL FUNCTIONAL STATUS PLAN OF CARE VITAL SIGNS MEDICATIONS Unknown Medications PROCEDURES No Known procedures RESULTS No Results REASON FOR VISIT Information Request Insurance Providers [facility] Member Patient Patient Patient Patient Patient Subscriber Subscriber Subscriber Group Insurance Plan Plan Plan Plan ID Relationship Address Phone Name Date of ID Name Date of No Type Insurance Insurance Insurance Coverage to Subscriber Address Phone Name Dates Danny [phone] Danny self Shamika [id number] Medicaid [id number] 47 Medicaid [facility] [id number] Medical Link 5232 [place] [phone] Link self Shamika [id number] Health [place] Medicaid [place] Medicaid Medical [place] Medical [id number] Case [phone] Case self Shamika [id number] Management [place] [address] [facility] [address] [facility] [address] [phone] Danny self Shamika [id number] Medicaid [id number] Medicaid [facility] [place] [address] [employer] Link [phone] Link self Shamika [id number] [facility] [address] [facility] [place] -[facility] [address] [place] [id number] [place] [facility] Myra [facility] [address] [phone] Medicaid self Shaimka [id number] [facility] [address] [facility] [address] MEDICAL (GENERAL) HISTORY Type Description Date Medical History anxiety Medical History depression Medical History fibromyalgia
[2018-10-20 02:24] LABS: ABS Basophils 0.1 10^3/ul (0-0.2); ABS Eosinophils 0.2 10^3/ul (0-0.6); ABS Lymphocytes 2.9 10^3/ul (1.0-4.8); ABS Monocytes 0.6 10^3/ul (0-0.8); ABS Neutrophils 9.5 10^3/ul (1.5-7.7); ABS Nucleated RBC 0 10^3/ul; Eosinophil % 1.3 %; Hematocrit 44 % (35-47); Hemoglobin 14.6 g/dl (12.0-16.0); Lymphocyte % 21.9 %; Mean Corpuscular HGB Conc 33 g/dl (31-36); Mean Corpuscular Hemoglobin 30 pg (27-31); Mean Corpuscular Volume 91 fL (80-97); Mean Platelet Volume 7.5 fL (7.4-10.4); Nucleated Red Blood Cells % 0.1; Platelet Count 282 10^3/ul (150-450); Red Blood Count 4.79 10^6/ul (4.00-5.40); Red Cell Distribution Width 13 % (10.5-15); White Blood Count 13.2 10^3/ul (3.5-10.8)
--- NOTE | 2018-10-20 02:26 | ED ---
HPI Chest Pain - HPI Summary HPI Summary: This pt is a 47 y/o female presenting to [facility] c/o chest pain since about 00:30 today. Pt reports her chest pain radiates into her back and into her left jaw. She additionally notes intermittent esophageal spasms, for which she has medications but without relief. She currently states her pain is 9/10 in severity. Denies nausea, vomiting, numbness, weakness, tingling. PMHx: SVT, achalasia. Her last stress test was about 1 year ago. Denies hx of stents. - History of Current Complaint Chief Complaint: EDChestPainROMI Time Seen by Provider: 10/20/18 01:55 Hx Obtained From: Patient Onset/Duration: Started Hours Ago, Still Present Timing: Lasting Hours Current Severity: Severe Pain Intensity: 9 Pain Scale Used: 0-10 Numeric Chest Pain Location: Mid Sternal Chest Pain Radiates: Yes Chest Pain Radiates To:: Back, Jaw - left Aggravating Factor(s): Nothing Alleviating Factor(s): Nothing Associated Signs and Symptoms: Positive: Chest Pain, Other: - POS: esophageal spasm. Negative: Numbness, Tingling, Weakness, Fever, Chills, Nausea, Vomiting - Additional Pertinent History Primary Care Physician: [id number] - Allergy/Home Medications Allergies/Adverse Reactions: Allergies Allergy/AdvReac Type Severity Reaction Status Date / Time No Known Allergies Allergy Verified 05/20/18 13:16 Home Medications: Home Medications Benzonatate 200 mg PO TID 10/20/18 [History Confirmed 10/20/18] Cyclobenzaprine TAB* [Flexeril 10 MG TAB*] 1 tab PO DAILY PRN 10/20/18 [History Confirmed 10/20/18] Desvenlafaxine [Desvenlafaxine ER] 1 tab PO DAILY 10/20/18 [History Confirmed ] Diazepam TAB(*) [Valium TAB(*)] 5 mg PO BID MDD 3 10/20/18 [History Confirmed ] Ibuprofen [Ibuprofen 100 MG/5 ML] 20 ml PO Q4HR 10/20/18 [History Confirmed 01/31] Ondansetron HCl [Zofran 4 MG TAB] 1 tab PO TID PRN 10/20/18 [History Confirmed 10/20/18] PMH/Surg Hx/FS Hx/Imm Hx Endocrine/Hematology History: Denies: Hx Diabetes, Hx Systemic Lupus Erythematosus Cardiovascular History: Reports: Other Cardiovascular Problems/Disorders - HX SVT, palpitations, chest pain Denies: Hx Congestive Heart Failure, Hx Hypertension, Hx Pacemaker/ICD Respiratory History: Reports: Hx Pneumonia Denies: Hx Asthma, Other Respiratory Problems/Disorders GI History: Reports: Hx Gastroesophageal Reflux Disease, Hx Hiatal Hernia, Other GI Disorders - frequent vomiting, dysphagia History: Reports: Hx Kidney Stones, Other Problems/Disorders - Kidney Stents IN THE PAST Denies: Hx Dialysis, Hx Renal Disease Musculoskeletal History: Reports: Hx Arthritis, Hx Back Problems, Hx Fibromyalgia, Other Musculoskeletal History - chronic pain Denies: Hx Rheumatoid Arthritis Sensory History: Reports: Hx Contacts or Glasses Denies: Hx Hearing Aid Opthamlomology History: Reports: Hx Contacts or Glasses Neurological History: Reports: Hx Headaches Denies: Other Neuro Impairments/Disorders - PAIN CLINIC PT Psychiatric History: Reports: Hx Anxiety, Hx Depression, Hx Post Traumatic Stress Disorder Denies: Hx Panic Disorder - Cancer History Hx Chemotherapy: No Hx Radiation Therapy: No - Surgical History Surgery Procedure, Year, and Place: RIGHT Wrist Ganglion 1989 @ [facility]; Kidney Stents 1999, [facility];-REMOVED. endoscopical dilation 2016 Hx Anesthesia Reactions: No Infectious Disease History: No Infectious Disease History: Reports: Hx of Known/Suspected MRSA Denies: Traveled Outside the [place] in Last 30 Days - Family History Known Family History: Positive: Renal Disease - kidney stones, Other - kidney stones - Social History Alcohol Use: None Hx Substance Use: No Substance Use Type: Reports: None Hx Tobacco Use: Yes Smoking Status (MU): Light Every Day Tobacco Smoker Amount Used/How Often: 5-6 a day cigarettes Review of Systems Negative: Fever, Chills ENT: Other - POS: esophageal spasms Positive: Chest Pain Negative: Vomiting, Nausea Negative: Weakness, Paresthesia, Numbness All Other Systems Reviewed And Are Negative: Yes Physical Exam - Summary Physical Exam Summary: VITAL SIGNS: Reviewed. GENERAL: Patient is a well-developed and nourished female who is anxious and crying. Patient is not in any acute respiratory distress. HEAD AND FACE: No signs of trauma. No ecchymosis, hematomas or skull depressions. No sinus tenderness. EYES: PERRLA, EOMI x 2, No injected conjunctiva, no nystagmus. EARS: Hearing grossly intact. Ear canals and tympanic membranes are within normal limits. MOUTH: Oropharynx within normal limits. NECK: Supple, trachea is midline, no adenopathy, no JVD, no carotid bruit, no c- spine tenderness, neck with full ROM. CHEST: Symmetric, no tenderness at palpation LUNGS: Clear to auscultation bilaterally. No wheezing or crackles. CVS: Regular rate and rhythm, S1 and S2 present, no murmurs or gallops appreciated. ABDOMEN: Soft, non-tender. No signs of distention. No rebound no guarding, and no masses palpated. Bowel sounds are normal. EXTREMITIES: FROM in all major joints, no edema, no cyanosis or clubbing. NEURO: Alert and oriented x 3. No acute neurological deficits. Speech is normal and follows commands. SKIN: Dry and warm Triage Information Reviewed: Yes Vital Signs On Initial Exam: Initial Vitals Temp Pulse Resp BP Pulse Ox 98.4 F 83 20 152/105 100 10/20/18 01:29 10/20/18 01:29 10/20/18 01:29 10/20/18 01:29 10/20/18 01:29 Vital Signs Reviewed: Yes Diagnostics - Vital Signs Vital Signs Temp Pulse Resp BP Pulse Ox 10/20/18 01:29 98.4 F 83 20 152/105 100 - Laboratory Lab Results: Lab Results 10/20/18 Range/Units 02:17 WBC 13.2 H (3.5-10.8) 10^3/ul RBC 4.79 (4.00-5.40) 10^6/ul Hgb 14.6 (12.0-16.0) g/dl Hct 44 (35-47) % MCV 91 (80-97) fL MCH 30 (27-31) pg MCHC 33 (31-36) g/dl RDW 13 (10.5-15) % Plt Count 282 (150-450) 10^3/ul MPV 7.5 (7.4-10.4) fL Neut % (Auto) 71.9 % Lymph % (Auto) 21.9 % Mcminn % (Auto) 4.3 % Eos % (Auto) 1.3 % Baso % (Auto) 0.6 % Absolute Neuts (auto) 9.5 H (1.5-7.7) 10^3/ul Absolute Lymphs (auto) 2.9 (1.0-4.8) 10^3/ul Absolute Monos (auto) 0.6 (0-0.8) 10^3/ul Absolute Eos (auto) 0.2 (0-0.6) 10^3/ul Absolute Basos (auto) 0.1 (0-0.2) 10^3/ul Absolute Nucleated RBC 0 10^3/ul Nucleated RBC % 0.1 Result Diagrams: 10/20/18 02:17 10/20/18 02:17 Lab Statement: Any lab studies that have been ordered have been reviewed, and results considered in the medical decision making process. - Radiology Chest XR Radiology Interpretation Completed By: ED Physician Summary of Radiographic Findings: Negative XR. Pending official radiology report. - EKG 01:33 Cardiac Rate: NL - at 78 bpm EKG Rhythm: Sinus Rhythm Summary of EKG Findings: Normal axis. Normal interval. No ischemic changes Chest Pain Course/Dx - Course Assessment/Plan: Pt is a 47 y/o female, with hx of SVT and achalasia, who presents with chest pain since about 00:30 today. Pt reports her chest pain radiates into her back and into her left jaw. She additionally notes intermittent esophageal spasms, for which she has medications but without relief. Blood work, chest XR, EKG were obtained. Chest XR is negative. In the ED course the pt was given glucagon, Ativan, protonix. Pt will be discharged home with follow up from cardiology. Pt is recommended to have a stress test as an outpatient. She is instructed to return to the ED for any new or worsening symptoms. - Diagnoses Provider Diagnoses: Atypical chest pain Discharge - Sign-Out/Discharge Documenting (check all that apply): Patient Departure - discharge home Patient Received Moderate/Deep Sedation with Procedure: No - Discharge Plan Condition: Stable Disposition: HOME Patient Education Materials: Chest Pain (ED) Referrals: Brando Yanes MD [Medical Doctor] - Facundo Constantino NP [Primary Care Provider] - Additional Instructions: Recommend outpatient stress test. Please follow up with rate engineer, Dr. Yanes. RETURN TO EMERGENCY DEPARTMENT FOR ANY NEW OR WORSENING SYMPTOMS. - Attestation Statements Document Initiated by Scribe: Yes Documenting Scribe: Qian Donald Provider For Whom Scribe is Documenting (Include Credential): Shabbir Oswald MD Scribe Attestation: Qian Liu, scribed for Shabbir Oswald MD on 10/20/18 at 0514. Status of Scribe Document: Ready
[2018-10-20 02:32] LABS: Activated Partial Thrombo Time 29.1 seconds (26.0-36.3); INR 0.75 (0.77-1.02)
[2018-10-20 02:45] LABS: Albumin 4.2 g/dL (3.2-5.2); Albumin/Globulin Ratio 1.6 (1-3); BUN/Creatinine Ratio 27.7 (8-20); Calcium 9.2 mg/dL (8.6-10.3); EGFR African American 118.2 (>60); EGFR Non-African American 97.7 (>60); Globulin 2.6 g/dL (2-4); Potassium 3.8 mmol/L (3.5-5.0); Total Bilirubin 0.2 mg/dL (0.2-1.0); Total Protein 6.8 g/dL (6.4-8.9)
[2018-10-20 05:32] VITALS: BP 115/63
== END | disposition home or self-care (01) ==
LOC: ED 01:27
DX: R07.89 Other chest pain (principal); F17.210 Nicotine dependence, cigarettes, uncomplicated
CPT/HCPCS: 36415; 71045; 80053; 84484; 85025; 85610; 85730; 93005; 96374; 96375; 99283; J1610; J2060

== ENCOUNTER 2019-07-30 14:22 | Emergency (ER) | payer OTHER ==
--- OUTSIDE RECORDS SUMMARY | 2019-07-30 14:42 | XMS REPORT | Continuity of Care Document ---
:1970 External Reference #:[id number] Author Name Ludy Pizano N.P. (transmitted by agent of provider Ivana Armstrong) Address [address] [place] [address] Care Team Providers Name Role Phone Yvan Constantino NP - Family Care Team Information Weed Inspector [phone] Simon Dutton MD - Gastroenterology Care Team Information Weed Inspector [phone] Problems Active Problems Provider Date Chronic pain syndrome Joaquim Stevens M.D. Onset: 05/04/2014 Cough Cordelia Menendez MD Onset: 01/25/2016 Gastroesophageal reflux disease Cordelia Menendez MD Onset: 01/25/2016 Tobacco user Cordelia Menendez MD Onset: 01/25/2016 Asthma without status asthmaticus Cordelia Menendez MD Onset: 02/09/2016 Obesity Cordelia Menendez MD Onset: 02/09/2016 Cervical spondylosis without myelopathy Reinaldo Willson M.D. Onset: 05/26/2017 Social History Type Date Description Comments Sex Unknown Tobacco Use Start: Unknown Patient is a current cigarette smoker, smokes some days ETOH Use Denies alcohol use Recreational Drug Use Denies Drug Use Tobacco Use Start: Unknown Patient is a current smoker, smokes some days Smoking Status Reviewed: 06/25/19 Patient is a current smoker, smokes some days Exercise Type/Frequency Exercises sporadically Allergies, Adverse Reactions, Alerts Description No Known Drug Allergies Medications Active Medications SIG Qnty Indications Ordering Date Provider Omeprazole 1 by mouth every Unknown 06/24/[address] day Effexor XR 1 po qd 60caps Other Ordering 11/18/2018 150mg Caps ER Provider 24HR Tylenol prn pain Ludy Pizano, 10/26/2018 N.P. TENS Therapy Pain use daily for 1units Ludy Pizano, 10/26/2018 Relief pain N.P. Device Digox 1 tab on odd 135tabs I47.1 Eleuterio CampbellClemencia 10/25/2018 125mcg Tablets days of the Sara Johns ;2 tabs on even days of the month Gabapentin 3 caps three 90tabs Unknown 01/24/2016 300mg Tablets times a day by mouth Proair HFA 2 puffs by mouth Unknown 01/24/2016 108(90Base) every 4 hours as mcg/Act Aerosol needed Vitamin D 1 cap by mouth Unknown 01/24/2016 (Ergocalciferol) per week as [id number] directed Capsules Vitamin C 500mg by mouth Unknown once daily Fluticasone Propionate two sprays each Unknown Nasal Lindsay nostril once 50mcg/Act daily Suspension Diclofenac Sodium apply 2 grams to Unknown 1% Gel affected area twice daily Benzonatate one three times Unknown 200mg Capsules a day as needed cough Diazepam 5 ml by mouth Unknown 5mg/ml Concentrate twice daily prn muscle spasma Lidocaine apply to Unknown 4% Cream affected areas as directed Cyclobenzaprine HCL 1 tablet by Unknown 10mg mouth q8 hours Tablets as needed muscle spasms Oxycodone-Acetaminophen every 4 hrs as Yvan Constantino, needed for pain RADIO INTER[employer]ENCE 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[employer]ER 5-325mg Tablets Klonopin 1 tab twice a Unknown 0.5mg Tablets day Ibuprofen 1 by mouth three Unknown 600mg Tablets times a day as needed Seroquel 1 by mouth every Unknown 50mg Tablets night at bedtime prn Ondansetron 1 three times a 60tabs Unknown 4mg Tablets day as needed Dispers for nausea Hydroxyzine HCL 1 po three times 60tabs Unknown 10mg a day Tablets Immunizations Description No Information Available Vital Signs Date Vital Result Comment 06/25/2019 2:38pm Height 65 inches 5'5" Weight 139.38 lb with shoes Heart Rate 70 /min radial,regular BP Systolic Sitting 130 mmHg LA, reg cuff BP Diastolic Sitting 88 mmHg LA, reg cuff BP Systolic Standing 126 mmHg LA, reg cuff BP Diastolic Standing 94 mmHg LA, reg cuff BMI (Body Mass Index) 23.2 kg/m2 Ejection Fraction 55%-60% stress echo 11/18/18 10/26/2018 11:06am Height 65 inches 5'5" Weight 141.00 lb with shoes Heart Rate 80 /min BP Systolic Sitting 104 mmHg ure adult reg cuff BP Diastolic Sitting 72 mmHg ure adult reg cuff BP Systolic Standing 100 mmHg BP Diastolic Standing 70 mmHg BMI (Body Mass Index) 23.5 kg/m2 Ejection Fraction 55-60% 06/20/15 echo Results Test Date Facility Test Result H/L Range Note Laboratory test 05/04/2019 [facility] Calcium 9.3 mg/dL Normal 8.6-10.[address] [place] [address] [phone] CBC Auto Diff 05/04/2019 [facility] White Blood 7.4 10^3/uL Normal 3.5-10.[address] [place] [address] [phone] Red Blood Count 4.79 10^6/uL Normal 3.70-4.87 Hemoglobin 14.8 g/dL Normal 12.0-16.0 Hematocrit 44 % Normal 35-47 Mean Corpuscular Volume 91 fL Normal 80-97 Mean Corpuscular Hemoglobin 31 pg Normal 27-31 Mean Corpuscular HGB Conc 34 g/dL Normal 31-36 Red Cell Distribution Width 14 % Normal 10-15 Platelet Count 232 10^3/uL Normal 150-450 Mean Platelet Volume 8.1 fL Normal 7.4-10.4 Abs Neutrophils 3.6 10^3/uL Normal 1.5-7.7 Abs Lymphocytes 3.0 10^3/uL Normal 1.0-4.8 Abs Monocytes 0.5 10^3/uL Normal 0-0.8 Abs Eosinophils 0.3 10^3/uL Normal 0-0.6 Abs Basophils 0.1 10^3/uL Normal 0-0.2 Abs Nucleated RBC 0.0 10^3/uL Granulocyte % 48.2 % Lymphocyte % 40.3 % Monocyte % 6.3 % Eosinophil % 4.4 % Basophil % 0.8 % Nucleated Red Blood Cells % 0.1 Comp Metabolic 05/04/2019 [facility] Sodium 138 mmol/L Normal 135-[address] [place] [address] [phone] Potassium 4.3 mmol/L Normal 3.5-5.0 Chloride 103 mmol/L Normal 101-111 Co2 Carbon Dioxide 29 mmol/L Normal 22-32 Anion Gap 6 mmol/L Normal 2-11 Glucose 99 mg/dL Normal 70-100 Blood Urea Nitrogen 9 mg/dL Normal 6-24 Creatinine 0.65 mg/dL Normal 0.51-0.95 BUN/Creatinine Ratio 13.8 Normal 8-20 Total Protein 6.8 g/dL Normal 6.4-8.9 Albumin 4.3 g/dL Normal 3.2-5.2 Globulin 2.5 g/dL Normal 2-4 Albumin/Globulin Ratio 1.7 Normal 1-3 Total Bilirubin 0.30 mg/dL Normal 0.2-1.0 Alkaline Phosphatase 106 U/L High 34-104 Alt 20 U/L Normal 7-52 Ast 25 U/L Normal 13-39 Egfr Non- 97.3 >60 Egfr 117.7 >60 1 Laboratory test 05/04/2019 [facility] Magnesium 2.2 mg/dL Normal 1.9-2.[address] [place] [address] [phone] Digoxin 1.5 ng/ml Normal 0.8-2.0 3 TSH (Thyroid Stimulating Horm) 2.14 mcIU/mL Normal 0.34-5.60 4 CBC Auto 05/04/2019 [facility] White Blood 7.4 10^3/uL Normal 3.5-10.[address] [place] [address] [phone] Red Blood Count 4.79 10^6/uL Normal 3.70-4.87 Hemoglobin 14.8 g/dL Normal 12.0-16.0 Hematocrit 44 % Normal 35-47 Mean Corpuscular Volume 91 fL Normal 80-97 Mean Corpuscular Hemoglobin 31 pg Normal 27-31 Mean Corpuscular HGB Conc 34 g/dL Normal 31-36 Red Cell Distribution Width 14 % Normal 10-15 Platelet Count 232 10^3/uL Normal 150-450 Mean Platelet Volume 8.1 fL Normal 7.4-10.4 Abs Neutrophils 3.6 10^3/uL Normal 1.5-7.7 Abs Lymphocytes 3.0 10^3/uL Normal 1.0-4.8 Abs Monocytes 0.5 10^3/uL Normal 0-0.8 Abs Eosinophils 0.3 10^3/uL Normal 0-0.6 Abs Basophils 0.1 10^3/uL Normal 0-0.2 Abs Nucleated RBC 0.0 10^3/uL Granulocyte % 48.2 % Lymphocyte % 40.3 % Monocyte % 6.3 % Eosinophil % 4.4 % Basophil % 0.8 % Nucleated Red Blood Cells % 0.1 Comp Metabolic 05/04/2019 [facility] Sodium 138 mmol/L Normal 135-145 [address] [place] [address] [phone] Potassium 4.3 mmol/L Normal 3.5-5.0 Chloride 103 mmol/L Normal 101-111 Co2 Carbon Dioxide 29 mmol/L Normal 22-32 Anion Gap 6 mmol/L Normal 2-11 Glucose 99 mg/dL Normal 70-100 Blood Urea Nitrogen 9 mg/dL Normal 6-24 Creatinine 0.65 mg/dL Normal 0.51-0.95 BUN/Creatinine Ratio 13.8 Normal 8-20 Calcium 9.3 mg/dL Normal 8.6-10.3 Total Protein 6.8 g/dL Normal 6.4-8.9 Albumin 4.3 g/dL Normal 3.2-5.2 Globulin 2.5 g/dL Normal 2-4 Albumin/Globulin Ratio 1.7 Normal 1-3 Total Bilirubin 0.30 mg/dL Normal 0.2-1.0 Alkaline Phosphatase 106 U/L High 34-104 Alt 20 U/L Normal 7-52 Ast 25 U/L Normal 13-39 Egfr Non- 97.3 >60 Egfr 117.7 >60 5 Laboratory test 05/04/2019 [facility] Magnesium 2.2 mg/dL Normal 1.9-2.7 6 finding [address] [place] [address] [phone] TSH (Thyroid Stim Horm) 2.14 mcIU/mL Normal 0.34-5.60 7 Digoxin 1.5 ng/ml Normal 0.8-2.0 8 1 Because ethnic data is not always readily available, this report includes an eGFR for both -Americans and non- Americans. The National Kidney Disease Education Program (NKDEP) does not endorse the use of the MDRD equation for patients that are not between the ages of 18 and 70, are , have extremes of body size, muscle mass, or nutritional status, or are non- or non-. According to the National Kidney Foundation, irrespective of diagnosis, the stage of the disease is based on the level of kidney function: Stage Description GFR(mL/min/1.73 m(2)) 1 Kidney damage with normal or decreased GFR 90 2 Kidney damage with mild decrease in GFR 60-89 3 Moderate decrease in GFR 30-59 4 Severe decrease in GFR 15-29 5 Kidney failure <15 (or dialysis) 2 FASTING Copy Result to: YVAN CONSTANTINO NP ([id number]) 3 FASTING Copy Result to: YVAN CONSTANTINO NP ([id number]) 4 FASTING Copy Result to: YVAN CONSTANTINO NP ([id number]) 5 Because ethnic data is not always readily available, this report includes an eGFR for both -Americans and non- Americans. The National Kidney Disease Education Program (NKDEP) does not endorse the use of the MDRD equation for patients that are not between the ages of 18 and 70, are , have extremes of body size, muscle mass, or nutritional status, or are non- or non-. According to the National Kidney Foundation, irrespective of diagnosis, the stage of the disease is based on the level of kidney function: Stage Description GFR(mL/min/1.73 m(2)) 1 Kidney damage with normal or decreased GFR 90 2 Kidney damage with mild decrease in GFR 60-89 3 Moderate decrease in GFR 30-59 4 Severe decrease in GFR 15-29 5 Kidney failure <15 (or dialysis) 6 FASTING Copy Result to: YVAN CONSTANTINO NP ([id number]) 7 FASTING Copy Result to: YVAN CONSTANTINO NP ([id number]) 8 FASTING Copy Result to: YVAN CONSTANTINO NP ([id number]) Procedures Date Code Description Status 06/25/2019 82049 EKG Tracing & Interpretation Completed 12/31/2018 82208 Holter Monitor Review (24 hr)dr maria dolores & interp only Completed 12/29/2018 65906 ECG Monitor/Recording W/Visual Superimposition Scanning Completed 12/29/2018 42500 ECG Monitor/Recording W/Visual Superimposition Scanning Completed 02/23/2018 [id number] Mammogram Completed 09/04/2016 [id number] Mammogram Completed Medical Devices Description No Information Available Encounters Type Date Location Provider Dx Diagnosis Office Visit 06/25/2019 [facility] Ludy Pizano, R00.2 Palpitations 2:30p N.P. I47.1 Supraventricular tachycardia R07.9 Chest pain, unspecified Assessments Date Code Description Provider 06/25/2019 R00.2 Palpitations Ludy Pizano, N.P. 06/25/2019 I47.1 Supraventricular tachycardia Ludy Pizano, N.P. 06/25/2019 R07.9 Chest pain, unspecified Ludy Pizano, N.P. 12/31/2018 R00.2 Palpitations Eleuterio Johns M.D. 12/29/2018 R00.2 Palpitations Eleuterio Johns M.D. 12/29/2018 R00.2 Palpitations Nurse Visit cc Plan of Treatment 06/25/2019 - Ludy Pizano, N.P.R00.2 JogmahiidouuB38.1 Supraventricular tachycardiaFollow up:8 mo OV JFMRecommendations:Continue digoxin through perioperative period.R07.9 Chest pain, unspecifiedRecommendations:Recent stress test low risk Functional Status Description No Information Available Mental Status Description No Information Available Referrals Description No Information Available
--- OUTSIDE RECORDS SUMMARY | 2019-07-30 14:42 | XMS REPORT ---
:1970 Author Organization [facility] Care Team Providers Name Role Phone Justen Tomlinson Unavailable Unavailable PROBLEMS Unknown Problems ALLERGIES No Information ENCOUNTERS Encounter Location Date Diagnosis [place] [facility] [address] [place] [address] Jul, [facility] [address] [place] [address] Jun, [address] Apr, [phone] [facility] [address] [place] [address] Dec, [place] [facility] [address] [place] [address] Nov, [address] Oct, [address] Sep, [address] [facility] [address] [place] [address] Sep, [place] [facility] [address] [place] [address] Aug, [address] Aug, [address] [place] [facility] [address] [place] [address] Aug, [place] [facility] [address] [place] [address] Jul, [address] Jul, [address] [place] [facility] [address] [place] [address] Jun, [place] [facility] [address] [place] [address] Jun, [address] May, [address] Apr, [address] [place] [facility] [address] [place] [address] Apr, [place] [facility] [address] [place] [address] Feb, [address] [address] Dec, [address] Nov, [address] Nov, [phone] [address] Sep, [address] Sep, [address] [facility] [address] [place] [address], [place] [address] Jul, [address] [address] Jul, [address] Dec, [address] [address] Dec, [place] [address] [address] Dec, [place] [address] [address] Sep, [place] [address] [address] May, [place] [address] [address] Apr, [place] [address] [address] Apr, [place] [address] [address] Apr, [facility] [address] [place] [address] Mar, IMMUNIZATIONS No Known Immunizations SOCIAL HISTORY Never Assessed REASON FOR REFERRAL FUNCTIONAL STATUS PLAN OF CARE VITAL SIGNS MEDICATIONS Medication Instructions Dosage Frequency Start Date End Date Duration Status Digoxin Unknown Vitamin D Unknown Clonazepam Unknown Effexor Unknown Gabapentin Unknown Oxycodone-Acetamin Unknown ophen PROCEDURES Procedure Date Ordered Result Body Site RESIN COMPOS - ONE SURFACE ANTERIOR Jun 15, 2019 INTRAORL-PERIAPICAL EA ADD FILM Jun 15, 2019 INTRAORL-PERIAPICAL EA ADD FILM Jun 15, 2019 INTRAORL-PERIAPICAL 1 FILM [id number] Jun 15, 2019 RESULTS No Results REASON FOR VISIT Insurance Providers [facility] Health Member Patient Patient Patient Patient Patient Subscriber Subscriber Subscriber Group Insurance Plan Plan Plan Plan ID Relationship Address Phone Name Date of ID Name Date of No Type Insurance Insurance Insurance Coverage to Subscriber Address Phone Name Dates Medicaid [id number] [phone] Medicaid self Shamika [id number] [facility] [address] [facility] [address] [address] [phone] Danny self Shamika [id number] Medicaid [id number] Medicaid [place] [id number] [employer] Link [address] [phone] Link self Shamika [id number] Formerly [facility] 42 Health [place] Medical [place] Medical [id number] Case [phone] Case self Shamika [id number] Management [place] 02 Management [facility] [address] [facility] Danny [phone] [place] self Shamika [id number] Medicaid [place] 47 [place] [id number] Medical Link [phone] Link self Shamika [id number] Health [address] [facility] [place] [place] [place] [facility] [address] MEDICAL (GENERAL) HISTORY Type Description Date Medical History anxiety Medical History depression Medical History fibromyalgia
[2019-07-30] MEDS ORDERED: Ondansetron INJ* 2 MG/ML VIAL IV ONE (15:19)
[2019-07-30] MEDS ORDERED: Morphine 4 MG/ML VIAL (1 ml) 4 MG/ML VIAL IV ONE (15:19)
--- NOTE | 2019-07-30 15:21 | ED ---
Complex/Multi-Sys Presentation - HPI Summary HPI Summary: This pt is a 48 y/o female presenting to [facility] via EMS c/o neck and abd pain. Pt reports she had neck surgery 3 weeks [facility]. Pt states everything went well after surgery until 6 days ago. She notes 6 days ago her legs began swelling. She reports she saw her PCP and was told to wear compression socks, which she states has been helping with the swelling. Per EMR , pt had labs, abd XR, and bilateral LE US ordered by PCP a few days ago that were all negative except for AST of 62 and ALT of 80. However pt notes she had difficulty ambulating secondary to right foot pain. At the same time of her leg swelling she began to experience abdominal distension. Denies nausea, vomiting, constipation. Pt states she has been taking magnesium citrate for constipation and had a bowel movement prior to arriving. Pt has been taking Oxycodone 5 for her neck pain, she did not take it today. PMHx: Heller myotomy in May 2019. - History Of Current Complaint Chief Complaint: EDGeneral Time Seen by Provider: 07/30/19 14:40 Hx Obtained From: Patient Onset/Duration: Lasting Days, Still Present Timing: Days Severity Currently: Moderate Location: Pain At: - neck and abd Aggravating Factor(s): nothing Alleviating Factor(s): nothing Associated Signs And Symptoms: Positive: Edema - legs, Abdominal Pain. Negative : Vomiting, Fever, Other - POSITIVE: neck pain, abd distension, feet pain. NEGATIVE: constipation, vomiting. - Allergies/Home Medications Allergies/Adverse Reactions: Allergies Allergy/AdvReac Type Severity Reaction Status Date / Time No Known Allergies Allergy Verified 03/01/19 14:01 Home Medications: Home Medications Acetaminophen PED LIQ* [Tylenol PED LIQ UDC*] 10 ml PO Q4H PRN 07/30/19 [ History Confirmed 07/30/19] Acetaminophen [Childrens Acetaminophen] 31 ml PO Q6H PRN 07/30/19 [History Confirmed 07/30/19] Albuterol inh POWDER (NF) [Proair Respiclick] 1 - 2 puff INH Q6HR PRN 07/30/19 [ History Confirmed 07/30/19] Ascorbic Acid TAB* [Vitamin C TAB*] 500 mg PO DAILY 07/30/19 [History Confirmed 07/30/19] Clindamycin Cap(NF) [Clindamycin Cap 300 mg Cap(NF)] 300 mg PO TID 07/30/19 [ History Confirmed 07/30/19] Diclofenac Sodium 4 gm TP QID 07/30/19 [History Confirmed 07/30/19] Fluticasone NASAL SPRAY 50MCG* [Flonase NASAL SPRAY 50MCG*] 2 spray BOTH NARES DAILY 07/30/19 [History Confirmed 07/30/19] Ibuprofen TAB* [Motrin TAB* 600 MG] 600 mg PO TID PRN 07/30/19 [History Confirmed 07/30/19] Lidocaine PATCH 5%* [Lidoderm 5% Patch*] 1 patch TRANSDERM DAILY 07/30/19 [ History Confirmed 07/30/19] Magnesium Glycinate [Mag Glycinate] 100 mg PO DAILY 07/30/19 [History Confirmed 07/30/19] Ondansetron HCl 5 ml PO Q6H PRN 07/30/19 [History Confirmed 07/30/19] Ondansetron ODT TAB* [Zofran 4 MG Odt TAB*] 4 mg PO .Q6-8 HRS PRN 07/30/19 [ History Confirmed 07/30/19] Venlafaxine ER (NF) [Effexor ER (NF)] 150 mg PO DAILY 07/30/19 [History Confirmed 07/30/19] diazePAM [Diazepam] 5 ml PO BID PRN MDD 10ml/day 07/30/19 [History Confirmed ] PMH/Surg Hx/FS Hx/Imm Hx Endocrine/Hematology History: Denies: Hx Diabetes, Hx Systemic Lupus Erythematosus Cardiovascular History: Reports: Other Cardiovascular Problems/Disorders - HX SVT, palpitations, chest pain Denies: Hx Congestive Heart Failure, Hx Hypertension, Hx Pacemaker/ICD Respiratory History: Reports: Hx Pneumonia Denies: Hx Asthma, Other Respiratory Problems/Disorders GI History: Reports: Hx Gastroesophageal Reflux Disease, Hx Hiatal Hernia, Other GI Disorders - frequent vomiting, dysphagia History: Reports: Hx Kidney Stones, Other Problems/Disorders - Kidney Stents IN THE PAST Denies: Hx Dialysis, Hx Renal Disease Musculoskeletal History: Reports: Hx Arthritis, Hx Back Problems, Hx Fibromyalgia, Other Musculoskeletal History - chronic pain Denies: Hx Rheumatoid Arthritis Sensory History: Reports: Hx Contacts or Glasses Denies: Hx Hearing Aid Opthamlomology History: Reports: Hx Contacts or Glasses Neurological History: Reports: Hx Headaches Denies: Other Neuro Impairments/Disorders - PAIN CLINIC PT Psychiatric History: Reports: Hx Anxiety, Hx Depression, Hx Panic Disorder - PANIC ATTACKS MRI IS FINE, Hx Post Traumatic Stress Disorder - Cancer History Hx Chemotherapy: No Hx Radiation Therapy: No - Surgical History Surgical History: Yes Surgery Procedure, Year, and Place: RIGHT Wrist Ganglion 1989 @ [facility]; Kidney Stents 1999, [facility];-REMOVED. endoscopical dilation 2016. HELLER MYOTOMY FUNDOPLICATION 06/11/18 Hx Anesthesia Reactions: No Infectious Disease History: No Infectious Disease History: Reports: Hx of Known/Suspected MRSA Denies: Traveled Outside the [place] in Last 30 Days - Family History Known Family History: Positive: Renal Disease - kidney stones, Other - kidney stones - Social History Alcohol Use: None Hx Substance Use: No Substance Use Type: Reports: None Hx Tobacco Use: Yes Smoking Status (MU): Light Every Day Tobacco Smoker Amount Used/How Often: 5-6 a day cigarettes Review of Systems Negative: Fever Gastrointestinal: Other - POSITIVE: abd distension Positive: Abdominal Pain. Negative: Vomiting, Other - NEGATIVE: constipation Musculoskeletal: Other - POSITIVE: neck pain, bilateral foot pain Positive: Edema - in bilateral legs All Other Systems Reviewed And Are Negative: Yes Physical Exam - Summary Physical Exam Summary: Constitutional: Well-developed, Well-nourished, Alert. (-) Distressed Skin: Warm, Dry HENT: Normocephalic; Atraumatic. Patient with C-collar. Anterior incision with plain dressing. Eyes: Conjunctiva normal Neck: Musculoskeletal ROM normal neck. (-) JVD, (-) Stridor, (-) Nuchal rigidity Cardio: Rhythm regular, rate normal, Heart sounds normal; Intact distal pulses; Radial pulses are 2+ and symmetric. (-) Murmur Pulmonary/Chest wall: Effort normal. (-) Respiratory distress, (-) Wheezes, (-) Rales Abd: Soft, mild tenderness. Abdomen is distended. (-) guarding, (-) Rebound Musculoskeletal: 1+ edema to lower extremities with 2+ DP pulses bilaterally. Lymph: (-) Cervical adenopathy Neuro: Alert, Oriented x3 Psych: Mood and affect Normal Triage Information Reviewed: Yes Vital Signs On Initial Exam: Initial Vitals Temp Pulse Resp BP Pulse Ox 98.8 F 88 14 120/69 95 07/30/19 14:23 07/30/19 14:23 07/30/19 14:23 07/30/19 14:23 07/30/19 14:23 Vital Signs Reviewed: Yes Procedures - Sedation Patient Received Moderate/Deep Sedation with Procedure: No Diagnostics - Vital Signs Vital Signs Temp Pulse Resp BP Pulse Ox 07/30/19 14:23 98.8 F 88 14 120/69 95 - Laboratory Result Diagrams: 07/30/19 16:24 07/30/19 16:24 Lab Statement: Any lab studies that have been ordered have been reviewed, and results considered in the medical decision making process. - CT CT abdomen/pelvis CT Interpretation Completed By: Radiologist Summary of CT Findings: IMPRESSION: Hepatomegaly with fatty infiltration of the liver. Dr. Liriano has reviewed this report. - Ultrasound No standard instances Ultrasound Interpretation Completed By: Radiologist Summary of Ultrasound Findings: Abdomen US IMPRESSION: Hepatomegaly with fatty infiltration of the liver. Dr. Liriano has reviewed this report. Re-Evaluation - Re-Evaluation First Eval Re-Evaluation Time: 18:34 Comment: D/w patient normal labs aside from elevated LFTs. CT scan w fatty infiltration of liver. US w.o biliary pathology. D/w GI regarding possible DILI vs other causes of elevated LFTs. No new medication changes to suggest DILI, neg acetaminophen and is taking 650 mg/daily max. Plan for outpatient GI consult. Patient had reported some concern over urinary retention, postvoid residual is 28 cc. Second Eval Re-Evaluation Time: 19:06 Change: Improved - UA neg, spec gravity elevated, encourage PO intake. Complex Multi-Symp Course/Dx Course Of Treatment: 48 y/o F with recent cervical spine surgery p/w LE edema and abdominal distention. Hx heller myotomy in past, no vomiting. - PE with 1+ edema LE, soft abdomen. Recent labs w slightly elevated LFTs. Will check labs, CT a/p, US gall bladder. Given morphine for pain. Patient denies fevers, vomiting. No new medication changes. Recent neg doppler LE. Does report some constipation 2/2 opiates which could be causing her pain. - Diagnoses Provider Diagnoses: Transaminitis, Lower extremity edema - Physician Notifications Discussed Care Of Patient With: Moshe Cr Time Discussed With Above Provider: 17:51 Instructed by Provider To: Other - Discussed with Dr. Cr GI, who recommends follow up at the [facility] for further work up as long as ultrasound does not show biliary duct dilatation. Discharge ED - Sign-Out/Discharge Documenting (check all that apply): Patient Departure - Discharge home - Discharge Plan Condition: Stable Disposition: HOME Patient Education Materials: Leg Edema (ED) Referrals: Facundo Constantino NP [Primary Care Provider] - Moshe Cr DO [Doctor of Osteopathy] - Additional Instructions: You were seen in the emergency department forabdominal pain, swelling and lower story due to. Your labs showed mildly elevated liver function tests. We discussed this with our on-call clinic physician. He suggested following up outpatient. If any studies were not completed at the time of discharge you will be called with the relevant results. Please follow up with your primary care doctor in next 2-3 days and return to emergency department for worsening pain, fevers, vomiting, shortness of breath or concerning symptoms. Do not take tylenol. It was a pleasure taking care of you today. - Billing Disposition and Condition Condition: STABLE Disposition: Home - Attestation Statements Document Initiated by Ana Paula: Yes Documenting Scribe: Qian Donald Provider For Whom Ana Paula is Documenting (Include Credential): Nelson Liriano MD Scribe Attestation: Qian Liu, scribed for Nelson Liriano MD on 07/30/19 at 1907. Scribe Documentation Reviewed: Yes Provider Attestation: The documentation as recorded by the Qian sue accurately reflects the service I personally performed and the decisions made by me, Nelson Liriano MD Status of Scrmarybel Document: Viewed
[2019-07-30 16:45] LABS: ABS Eosinophils 0.2 10^3/ul (0-0.6); ABS Lymphocytes 1.8 10^3/ul (1.0-4.8); ABS Monocytes 0.5 10^3/ul (0-0.8); Eosinophil % 1.6 %; Hematocrit 38 % (35-47); Hemoglobin 12.9 g/dL (12.0-16.0); Lymphocyte % 17.5 %; Mean Corpuscular HGB Conc 34 g/dL (31-36); Mean Corpuscular Hemoglobin 32 pg (27-31); Mean Corpuscular Volume 93 fL (80-97); Mean Platelet Volume 7.3 fL (7.4-10.4); Platelet Count 216 10^3/uL (150-450); Red Blood Count 4.05 10^6 /uL (3.70-4.87); Red Cell Distribution Width 16 % (10-15); White Blood Count 10.6 10^3/uL (3.5-10.8)
[2019-07-30 16:51] LABS: ALT 101 U/L (7-52); AST 78 U/L (13-39); Albumin 3.6 g/dL (3.2-5.2); Albumin/Globulin Ratio 1.3 (1-3); Alkaline Phosphatase 105 U/L (34-104); Anion Gap 6 mmol/L (2-11); BUN/Creatinine Ratio 24.1 (8-20); Blood Urea Nitrogen 14 mg/dL (6-24); CO2 Carbon Dioxide 30 mmol/L (22-32); Calcium 8.9 mg/dL (8.6-10.3); Chloride 103 mmol/L (101-111); EGFR African American 134.3 (>60); Globulin 2.7 g/dL (2-4); Glucose 93 mg/dL (70-100); Potassium 3.9 mmol/L (3.5-5.0); Sodium 139 mmol/L (135-145); Total Protein 6.3 g/dL (6.4-8.9)
[2019-07-30] MEDS ORDERED: Ketorolac INJ* 30 MG/ML 1 ML VIAL IV ONE (16:51)
[2019-07-30 16:57] LABS: HCG Pregnancy 2.79 mIU/mL
[2019-07-30] MEDS ORDERED: Iohexol 300* (CONTRAST) 10 ML SDV IV ONE (17:06)
[2019-07-30 17:47] LABS: Acetaminophen < 15 mcg/mL
[2019-07-30 19:06] LABS: Urine Appearance Clear; Urine Bacteria Absent (Absent); Urine Bilirubin Negative (Negative); Urine Blood Negative (Negative); Urine Color Yellow; Urine Glucose Negative (Negative); Urine Ketones Negative (Negative); Urine Nitrite Negative (Negative); Urine Protein Negative (Negative); Urine Red Blood Cell Absent (Absent); Urine Specific Gravity > 1.060 (1.010-1.030); Urine Squamous Epithelial Cell Present (Absent); Urine Urobilinogen Negative (Negative); Urine White Blood Cell Absent (Absent)
[2019-07-30 19:24] VITALS: BP 111/63
== END 2019-07-30 19:24 | disposition home or self-care (01) ==
LOC: ED 14:22
DX: R74.0 Nonspecific elevation of levels of transaminase and lactic acid dehydrogenase [LDH] (principal); R60.0 Localized edema; K21.9 Gastro-esophageal reflux disease without esophagitis; F41.9 Anxiety disorder, unspecified; F32.9 Major depressive disorder, single episode, unspecified; F17.210 Nicotine dependence, cigarettes, uncomplicated; Z87.442 Personal history of urinary calculi; Z79.899 Other long term (current) drug therapy
CPT/HCPCS: 36415; 74177; 76705; 80053; 80329; 81003; 81015; 84702; 85025; 87086; 96374; 96375; 99284; G0480; J1885; J2270; J2405; Q9967

== ENCOUNTER 2019-10-26 02:32 | Emergency (ER) | payer OTHER ==
--- OUTSIDE RECORDS SUMMARY | 2019-10-26 02:43 | XMS REPORT | Continuity of Care Document ---
:1970 External Reference #:[id number] Author Name Duransueyumi Mathew Dougie, DIRECTOR BIOSTATISTICS-C Address [address] [place] [address] Care Team Providers Name Role Phone Simon Dutton MD - Care Team Information [employer] Technician [phone] Gastroenterology Truong Dewitt MD - Obstetrics & Care Team Information Air Traffic Systems Technician Gynecology Micha Sharma, DO Care Team Information Air Traffic Systems Technician Unavailable Gregoria Swann NP Care Team Information Air Traffic Systems Technician Unavailable Pedro Gaxiola MD - Rheumatology Care Team Information Air Traffic Systems Technician Melita Pizano MD - Surgery Care Team Information Air Traffic Systems Technician Antoni Karimi MD - Orthopaedic Care Team Information Air Traffic Systems Technician [phone] Surgery Michael Farr MD - Pain Medicine Care Team Information Air Traffic Systems Technician [phone] Raghu Torres MD - Urology Care Team Information Air Traffic Systems Technician [phone] Eleuterio Johns MD - Cardiovascular Care Team Information Air Traffic Systems Technician [phone] Disease Sara Lee M.D. - Rheumatology Care Team Information [employer] Traffic Systems Technician Ancelmo Clay MD - Otolaryngic Care Team Information Air Traffic Systems Technician Allergy Karan Rain - Otolaryngology Care Team Information [employer] Traffic Systems Technician Milton Doherty MD - Surgery Care Team Information [employer] Traffic Systems Technician [phone] Jabier Uribe MD Care Team Information Air Traffic Systems Technician Unavailable Reinaldo Bassett MD - Neurology Care Team Information [employer] Traffic Systems Technician [phone] Problems Active Problems Provider Date Low back pain AINSLEY Laughlin Onset: 12/24/2010 Generalized anxiety disorder KAYLYN Laughlin-Maria Victoria Onset: 12/24/2010 Depressive disorder KAYLYN Laughlin-Maria Victoria Onset: 12/24/2010 Social History Type Date Description Comments Sex Unknown Cigarette Use pt stopped smoking 2 weeks ago (11/05/15) ETOH Use Denies alcohol use Recreational Drug Use Sporadically uses Marijuana Tobacco Use Start: Unknown End: Patient is a former Unknown smoker Recreational Drug Use Sporadically uses Cocaine Smoking Status Reviewed: 08/11/19 Patient is a former smoker Enjoy Exercising Enjoys exercising has recently been able to do more now that she can get out of the house, she tends to get fatigued quickly Allergies, Adverse Reactions, Alerts Active Allergies Reaction Severity Comments Date Pristiq Anxiety, Palpitations, HTN Moderate 11/13/2018 Inactive Allergies NKDA 11/01/2010 Medications Active Medications SIG Qnty Indications Ordering Date Provider Aspercreme Lidocaine Apply 1 Patch To 30units Yvan R. 10/19/2019 4% Patch Neck Once Daily as Storm, DIRECTOR BIOSTATISTICS-C Needed Effexor XR 2 by mouth every 60caps F33.1 Alfredownti R. 09/30/2019 150mg Caps ER day Storm, DIRECTOR BIOSTATISTICS-C 24HR Oxycodone HCL Take One Tablet By 20tabs M54.5 Yvan R. 08/05/2019 5mg Tablets Mouth Every 6 Storm, DIRECTOR BIOSTATISTICS-C Hours as Needed For Pain; Maximum Daily Dose = 4 Cyclobenzaprine HCL take 1/2 or 1 30tabs M62.838 Fabianoi R. 01/19/2019 10mg tablet by mouth Storm, DIRECTOR BIOSTATISTICS-C Tablets three times a day for muscle spasm will cause tiredness Tylenol Childrens 10ml by mouth 360ml Durannti R. 11/13/2018 every 4 hours if Storm, DIRECTOR BIOSTATISTICS-C 160mg/5ML Suspension needed Non-Aspirin Childrens Take 31 MLS By 473units K22.4 Alfredowsuei R. 11/09/2018 Mouth Every 6 Storm, DIRECTOR BIOSTATISTICS-C 160mg/5ML Suspension Hours as Needed For Pain Benzonatate take one capsule 30caps Rehana Hakn, 08/20/2018 200mg by mouth three [employer] Capsules times a day for cough Diazepam take 5 mls by 300units M54.5 [facility] R. 06/16/2018 5mg/5ML Solution mouth two times a Storm, DIRECTOR BIOSTATISTICS-C day for muscle spasms, max 10 mls/day Ibuprofen take 20 473units K22.4 [facility] R. 06/11/2018 100mg/5ML milliliters by [facility], DIRECTOR BIOSTATISTICS-C Suspension mouth every 4 hours as needed for pain GNP Lidocaine Pain apply one patch to 15units M54.2 [facility] R. 05/06/2018 Relief neck once daily if Storm, DIRECTOR BIOSTATISTICS-C 4% Patches needed Ondansetron HCL Take 5ML By Mouth 100units [facility] R. 02/13/2018 4mg/5ML Every 6 Hours as Storm, DIRECTOR BIOSTATISTICS-C Solution Needed For Nausea Zofran Odt disolve one tab in 30tabs [facility] R. 01/07/2018 4mg Tablets mouth every 6-8 [facility], DIRECTOR BIOSTATISTICS-C Dispers hours as needed nausea Diclofenac Sodium Apply 4Grams To 100units M54.5 Karan Beare, 10/24/2017 1% Gel Low Back Four M.D. Times A Day Fluticasone Propionate [place] Two Sprays 16units [facility] R. 10/09/2017 In Each Nostril Storm, DIRECTOR BIOSTATISTICS-C 50mcg/Act Suspension Every Day For Rhinitis TENS Therapy Pain device and pads, one M43.02 [facility] R. 06/20/2017 Relief use as needed for Storm, DIRECTOR BIOSTATISTICS-C Device neck and back pain Ibuprofen take 1 tablet by 60tabs [facility] R. 05/22/2017 600mg Tablets mouth three times [facility], DIRECTOR BIOSTATISTICS-C a day with food as needed for pain Clonazepam take one tablet by 60tabs F41.9 [facility] R. 09/03/2016 0.5mg Tablets mouth twice a day Storm, DIRECTOR BIOSTATISTICS-C for anxiety; maximum daily dose = 2 Vitamin D Take 1 Capsule By 12caps [facility] R. 04/18/2016 (Ergocalciferol) Mouth Once Weekly KAYLYN Crockett-C as Directed [id number] Capsules Seroquel Take One Tablet By 30tabs F33.9 Alfredownti R. 05/06/2014 50mg Tablets Mouth AT Bedtime EJ CrockettP-C Hydroxyzine HCL Take One Tablet By 60tabs F33.9 Alfredowsuei R. 05/06/2014 10mg Mouth Three Times Dougie DIRECTOR BIOSTATISTICS-C Tablets A Day as Needed For Anxiety Gabapentin Take Three 120caps Alfredowharjit R. 05/03/2014 300mg Capsules Capsules By Mouth Dougie DIRECTOR BIOSTATISTICS-C Three Times A Day Digoxin Jackie Johns 125mcg Tablets MD eusebio Magnesium Glycinate Unknown Powder Vitamin C 1 by mouth every Unknown 500mg Tablets day Proair HFA 1-2 puffs every 6 8.500gm Yvan RClemencia 108(90Base) hours as needed EJ CrockettP-C mcg/Act Aerosol History Medications Venlafaxine HCL ER 2 by mouth 60caps F33.1 Durannti R. Dougie, 09/21/2019 - every day DIRECTOR BIOSTATISTICS-C 09/30/2019 150mg Caps ER 24HR Immunizations CPT Code Status Date Vaccine Lot # [id number] Given 11/16/2013 Tdap (Adacel) [id number] Refused 10/19/2019 Influenza Virus Vaccine, Quadrivalent, 3 Yr > Quad , Preserv Free [id number] Refused 08/05/2019 Influenza Virus Vaccine, Quadrivalent, 3 Yr > Quad , Preserv Free [id number] Refused 08/15/2017 Influenza Virus Vaccine, Quadrivalent, 3 Yr > Quad , Preserv Free [id number] Refused 09/23/2016 Influenza Virus Vaccine, Quadrivalent, Split, 6-35 Mo, PF Vital Signs Date Vital Result Comment 10/19/2019 11:18am Weight 160.00 lb Weight 72.576 kg BP Systolic 110 mmHg BP Diastolic 78 mmHg Heart Rate 77 /min Body Temperature 98.5 F Respiratory Rate 16 /min O2 % BldC Oximetry 97 % 09/21/2019 11:12am Weight 161.00 lb Weight 73.030 kg BP Systolic 124 mmHg BP Diastolic 74 mmHg Heart Rate 78 /min Body Temperature 97.2 F Respiratory Rate 16 /min O2 % BldC Oximetry 98 % Results Test Acquired Date Facility Test Result H/L Range Note Nuclear AB 09/21/2019 [facility] Nuclear Ab Positive Abnormal 1 (Regla) By Ifa [phone] (Regal) by 1:160 Igg Ifa, IgG Regla Titer: 1:160 [facility] Pattern: Speckled 2 Laboratory test 09/21/2019 [facility] Erythrocyte Sed 10 mm/Hr Normal 0-19 3 finding [phone] Rate Cyclic Citrullinated Pep Igg <15.6 U 4 C Reactive Protein 6.50 mg/L Normal <8.01 5 Rheumatoid Factor < 10 IU/mL Normal <15 6 Tick-Borne 09/21/2019 [facility] Anaplasma <1:64 < 1:64 7 Disease AB [phone] phagocytophilium titer Panel Babesia microti IgG Ab, S <1:64 titer <1:64 8 Ehrlichia chaffeensis IgG AB <1:64 titer <1:64 9 Lyme Disease Serology Negative Negative 10 Lyme Disease AB 09/21/2019 [facility] IgG Immunoblot Negative Negative Immunoblot WB [phone] IgG detected against p41 kDa IgM Immunoblot Negative Negative IgM detected against None kDa Lyme Disease Interpretation See Comment 11 Laboratory test 09/21/2019 [facility] Vitamin D 40.0 ng/mL Normal 20-50 12 finding [phone] Total 25(Oh) Vitamin B12 324 pg/mL Normal 180-914 13 Basic Metabolic 09/21/2019 [facility] Sodium 137 mmol /L Normal 135-145 Panel [phone] Potassium 4.4 mmol/L Normal 3.5-5.0 Chloride 106 mmol/L Normal 101-111 Co2 Carbon Dioxide 23 mmol/L Normal 22-32 Anion Gap 8 mmol/L Normal 2-11 Glucose 123 mg/dL High 70-100 Blood Urea Nitrogen 15 mg/dL Normal 6-24 Creatinine 0.61 mg/dL Normal 0.51-0.95 BUN/Creatinine Ratio 24.6 High 8-20 Calcium 8.9 mg/dL Normal 8.6-10.3 Egfr Non- 104.7 >60 Egfr 126.7 >60 14 CBC Auto 09/21/2019 [facility] White Blood 8.1 10^3/ uL Normal 3.5-10.8 Diff [phone] Count Red Blood Count 4.78 10^6/uL Normal 3.70-4.87 Hemoglobin 15.3 g/dL Normal 12.0-16.0 Hematocrit 45 % Normal 35-47 Mean Corpuscular Volume 93 fL Normal 80-97 Mean Corpuscular Hemoglobin 32 pg High 27-31 Mean Corpuscular HGB Conc 34 g/dL Normal 31-36 Red Cell Distribution Width 14 % Normal 10-15 Platelet Count 288 10^3/uL Normal 150-450 Mean Platelet Volume 8.3 fL Normal 7.4-10.4 Abs Neutrophils 4.7 10^3/uL Normal 1.5-7.7 Abs Lymphocytes 2.3 10^3/uL Normal 1.0-4.8 Abs Monocytes 0.8 10^3/uL Normal 0-0.8 Abs Eosinophils 0.2 10^3/uL Normal 0-0.6 Abs Basophils 0.0 10^3/uL Normal 0-0.2 Abs Nucleated RBC 0.0 10^3/uL Granulocyte % 57.8 % Lymphocyte % 28.5 % Monocyte % 10.1 % Eosinophil % 3.0 % Basophil % 0.6 % Nucleated Red Blood Cells % 0.0 Laboratory test 09/21/2019 [facility] Ferritin 47.0 ng/mL Normal 11-307 15 finding [phone] Iron & Iron 09/21/2019 [facility] Iron 92 g/dL Normal 50-212 Binding Capacity [phone] Unsaturated Iron Binding < 353 g/dL Total Iron Binding Capacity 368 g/dL Normal 250-450 Transferrin 263 mg/dL Normal 203-362 % Iron Saturation 25 % Normal 15-55 Liver Function 09/21/2019 [facility] Total Protein 6.7 g/dL Normal 6.4-8.9 Panel [phone] Albumin 4.2 g/dL Normal 3.2-5.2 Globulin 2.5 g/dL Normal 2-4 Albumin/Globulin Ratio 1.7 Normal 1-3 Total Bilirubin 0.20 mg/dL Normal 0.2-1.0 Direct Bilirubin 0.00 mg/dL Low 0.03-0.18 Alkaline Phosphatase 109 U/L High 34-104 Alt 35 U/L Normal 7-52 Ast 39 U/L Normal 13-39 Comp Metabolic 09/02/2019 [facility] Sodium 139 mmol/ L Normal 135-145 Panel [phone] Potassium 4.2 mmol/L Normal 3.5-5.0 Chloride 105 mmol/L Normal 101-111 Co2 Carbon Dioxide 27 mmol/L Normal 22-32 Anion Gap 7 mmol/L Normal 2-11 Glucose 103 mg/dL High 70-100 Blood Urea Nitrogen 10 mg/dL Normal 6-24 Creatinine 0.57 mg/dL Normal 0.51-0.95 BUN/Creatinine Ratio 17.5 Normal 8-20 Calcium 9.1 mg/dL Normal 8.6-10.3 Total Protein 6.2 g/dL Low 6.4-8.9 Albumin 4.0 g/dL Normal 3.2-5.2 Globulin 2.2 g/dL Normal 2-4 Albumin/Globulin Ratio 1.8 Normal 1-3 Total Bilirubin 0.20 mg/dL Normal 0.2-1.0 Alkaline Phosphatase 113 U/L High 34-104 Alt 49 U/L Normal 7-52 Ast 43 U/L High 13-39 Egfr Non- 113.2 >60 Egfr 137.0 >60 16 Liver 09/02/2019 [facility] Direct 0.00 Low 0.03- 0.18 Function [phone] Bilirubin mg/dL Panel CBC Auto Diff 08/05/2019 [facility] White Blood 9.7 Normal 3.5-10.8 [phone] Count 10^3/uL Red Blood Count 4.32 10^6/uL Normal 3.70-4.87 Hemoglobin 13.7 g/dL Normal 12.0-16.0 Hematocrit 41 % Normal 35-47 Mean Corpuscular Volume 95 fL Normal 80-97 Mean Corpuscular Hemoglobin 32 pg High 27-31 Mean Corpuscular HGB Conc 33 g/dL Normal 31-36 Red Cell Distribution Width 15 % Normal 10-15 Platelet Count 264 10^3/uL Normal 150-450 Mean Platelet Volume 8.3 fL Normal 7.4-10.4 Abs Neutrophils 7.1 10^3/uL Normal 1.5-7.7 Abs Lymphocytes 1.9 10^3/uL Normal 1.0-4.8 Abs Monocytes 0.6 10^3/uL Normal 0-0.8 Abs Eosinophils 0.1 10^3/uL Normal 0-0.6 Abs Basophils 0.0 10^3/uL Normal 0-0.2 Abs Nucleated RBC 0.0 10^3/uL Granulocyte % 72.9 % Lymphocyte % 19.2 % Monocyte % 6.4 % Eosinophil % 1.1 % Basophil % 0.4 % Nucleated Red Blood Cells % 0.1 Laboratory test 08/05/2019 [facility] Ferritin 101.1 ng/mL Normal 11-307 17 finding [phone] Iron & Iron 08/05/2019 [facility] Iron 85 g/dL Normal 50-212 Binding Capacity [phone] Unsaturated Iron Binding < 467 g/dL Total Iron Binding Capacity 482 g/dL High 250-450 Transferrin 344 mg/dL Normal 203-362 % Iron Saturation 18 % Normal 15-55 Liver Function 08/05/2019 [facility] Total Protein 7.0 g/dL Normal 6.4-8.9 Panel [phone] Albumin 4.2 g/dL Normal 3.2-5.2 Globulin 2.8 g/dL Normal 2-4 Albumin/Globulin Ratio 1.5 Normal 1-3 Total Bilirubin 0.30 mg/dL Normal 0.2-1.0 Direct Bilirubin 0.10 mg/dL Normal 0.03-0.18 Indirect Bilirubin 0.2 mg/dL Low 0.3-1.0 Alkaline Phosphatase 125 U/L High 34-104 Alt 100 U/L High 7-52 Ast 64 U/L High 13-39 Laboratory test 07/30/2019 [facility] HCG 2.79 mIU/mL 18 finding [phone] Acetaminophen < 15 g/mL 19 Comp Metabolic 07/30/2019 [facility] Sodium 139 mmol/ L Normal 135-145 Panel [phone] Potassium 3.9 mmol/L Normal 3.5-5.0 Chloride 103 mmol/L Normal 101-111 Co2 Carbon Dioxide 30 mmol/L Normal 22-32 Anion Gap 6 mmol/L Normal 2-11 Glucose 93 mg/dL Normal 70-100 Blood Urea Nitrogen 14 mg/dL Normal 6-24 Creatinine 0.58 mg/dL Normal 0.51-0.95 BUN/Creatinine Ratio 24.1 High 8-20 Calcium 8.9 mg/dL Normal 8.6-10.3 Total Protein 6.3 g/dL Low 6.4-8.9 Albumin 3.6 g/dL Normal 3.2-5.2 Globulin 2.7 g/dL Normal 2-4 Albumin/Globulin Ratio 1.3 Normal 1-3 Total Bilirubin 0.40 mg/dL Normal 0.2-1.0 Alkaline Phosphatase 105 U/L High 34-104 Alt 101 U/L High 7-52 Ast 78 U/L High 13-39 Egfr Non- 111.0 >60 Egfr 134.3 >60 20 CBC Auto 07/30/2019 [facility] White Blood 10.6 10^3/ uL Normal 3.5-10.8 Diff [phone] Count Red Blood Count 4.05 10^6/uL Normal 3.70-4.87 Hemoglobin 12.9 g/dL Normal 12.0-16.0 Hematocrit 38 % Normal 35-47 Mean Corpuscular Volume 93 fL Normal 80-97 Mean Corpuscular Hemoglobin 32 pg High 27-31 Mean Corpuscular HGB Conc 34 g/dL Normal 31-36 Red Cell Distribution Width 16 % High 10-15 Platelet Count 216 10^3/uL Normal 150-450 Mean Platelet Volume 7.3 fL Low 7.4-10.4 Abs Neutrophils 8.0 10^3/uL High 1.5-7.7 Abs Lymphocytes 1.8 10^3/uL Normal 1.0-4.8 Abs Monocytes 0.5 10^3/uL Normal 0-0.8 Abs Eosinophils 0.2 10^3/uL Normal 0-0.6 Abs Basophils 0.0 10^3/uL Normal 0-0.2 Abs Nucleated RBC 0.0 10^3/uL Granulocyte % 75.3 % Lymphocyte % 17.5 % Monocyte % 5.1 % Eosinophil % 1.6 % Basophil % 0.5 % Nucleated Red Blood Cells % 0.0 Urinalysis Profile 07/30/2019 [facility] Urine Color Yellow [phone] Urine Appearance Clear Urine Specific [place] > 1.060 High 1.010-1.030 Urine pH 7.0 Normal 5-9 Urine Urobilinogen Negative Negative Urine Ketones Negative Negative Urine Protein Negative Negative Urine Leukocytes Trace Abnormal Negative Urine Blood Negative Negative Urine Nitrite Negative Negative Urine Bilirubin Negative Negative Urine Glucose Negative Negative Urine White Blood Cell Absent Absent Urine Red Blood Cell Absent Absent Urine Bacteria Absent Absent Urine Squamous Epithelial Cell Present Abnormal Absent Urine Culture And 07/30/2019 [facility] Urine SEE RESULT 21 Sensitivities [phone] Culture BELOW CBC Auto Diff 07/27/2019 [facility] White Blood 7.9 10^3/uL Normal 3.5- [phone] Count 10.8 Red Blood Count 4.08 10^6/uL Normal 3.70-4.87 Hemoglobin 13.0 g/dL Normal 12.0-16.0 Hematocrit 39 % Normal 35-47 Mean Corpuscular Volume 95 fL Normal 80-97 Mean Corpuscular Hemoglobin 32 pg High 27-31 Mean Corpuscular HGB Conc 34 g/dL Normal 31-36 Red Cell Distribution Width 16 % High 10-15 Platelet Count 261 10^3/uL Normal 150-450 Mean Platelet Volume 7.7 fL Normal 7.4-10.4 Abs Neutrophils 4.0 10^3/uL Normal 1.5-7.7 Abs Lymphocytes 3.2 10^3/uL Normal 1.0-4.8 Abs Monocytes 0.5 10^3/uL Normal 0-0.8 Abs Eosinophils 0.2 10^3/uL Normal 0-0.6 Abs Basophils 0.0 10^3/uL Normal 0-0.2 Abs Nucleated RBC 0.0 10^3/uL Granulocyte % 50.8 % Lymphocyte % 40.7 % Monocyte % 5.8 % Eosinophil % 2.2 % Basophil % 0.5 % Nucleated Red Blood Cells % 0.0 Comp Metabolic 07/27/2019 [facility] Sodium 138 mmol/ L Normal 135-145 Panel [phone] Potassium 4.5 mmol/L Normal 3.5-5.0 Chloride 101 mmol/L Normal 101-111 Co2 Carbon Dioxide 35 mmol/L High 22-32 Anion Gap 2 mmol/L Normal 2-11 Glucose 91 mg/dL Normal 70-100 Blood Urea Nitrogen 17 mg/dL Normal 6-24 Creatinine 0.62 mg/dL Normal 0.51-0.95 BUN/Creatinine Ratio 27.4 High 8-20 Calcium 9.1 mg/dL Normal 8.6-10.3 Total Protein 6.5 g/dL Normal 6.4-8.9 Albumin 3.9 g/dL Normal 3.2-5.2 Globulin 2.6 g/dL Normal 2-4 Albumin/Globulin Ratio 1.5 Normal 1-3 Total Bilirubin 0.30 mg/dL Normal 0.2-1.0 Alkaline Phosphatase 101 U/L Normal 34-104 Alt 80 U/L High 7-52 Ast 62 U/L High 13-39 Egfr Non- 102.7 >60 Egfr 124.3 >60 22 Laboratory 07/27/2019 [facility] Magnesium 2.2 mg/dL Normal 1.9-2.7 23 test finding [phone] Hepatitis 07/27/2019 [facility] Hepatitis B Nonreactive Nonreactive Acute Panel [phone] Core IgM Hepatitis A Ab IgM Negative Negative HCV Index 0.01 s/c Hepatitis C Antibody Negative Negative Hepatitis B Surface Antigen Nonreactive Nonreactive Urine DIP 07/27/2019 In House Lab Leukocytes 1+ High Neg [phone] Urine Nitrites NEG Neg Urobilinogen NORM Norm Total Protein Urine NEG Neg Urine pH 7.0 High 5-6 Urine Blood NEG Neg Specific [place] 1.010 1.01-1.02 Urine Ketones NEG Neg Urine Bilirubin NEG Neg Urine Glucose NORM Norm Basic Metabolic 06/22/2019 [facility] Sodium 139 mmol /L Normal 135-145 Panel [phone] Potassium 4.5 mmol/L Normal 3.5-5.0 Chloride 103 mmol/L Normal 101-111 Co2 Carbon Dioxide 31 mmol/L Normal 22-32 Anion Gap 5 mmol/L Normal 2-11 Glucose 107 mg/dL High 70-100 Blood Urea Nitrogen 14 mg/dL Normal 6-24 Creatinine 0.67 mg/dL Normal 0.51-0.95 BUN/Creatinine Ratio 20.9 High 8-20 Calcium 9.4 mg/dL Normal 8.6-10.3 Egfr Non- 93.9 >60 Egfr 113.7 >60 24 Type & Screen 06/22/2019 [facility] Patient Blood O Positive [phone] Type Antibody Screen NEGATIVE Laboratory 06/22/2019 [facility] Partial 34.1 Normal 26.0-38.0 test finding [phone] Thrombo seconds Time PTT Inr/Protime 06/22/2019 [facility] Inr 0.84 Normal 0.82-1.09 25 [phone] CBC No Diff 06/22/2019 [facility] White Blood 9.5 10^ 3/uL Normal 3.5-10.8 [phone] Count Red Blood Count 4.50 10^6/uL Normal 3.70-4.87 Hemoglobin 14.1 g/dL Normal 12.0-16.0 Hematocrit 42 % Normal 35-47 Mean Corpuscular Volume 92 fL Normal 80-97 Mean Corpuscular Hemoglobin 31 pg Normal 27-31 Mean Corpuscular HGB Conc 34 g/dL Normal 31-36 Red Cell Distribution Width 14 % Normal 10-15 Platelet Count 259 10^3/uL Normal 150-450 Mean Platelet Volume 8.3 fL Normal 7.4-10.4 CBC Auto 05/04/2019 [facility] White Blood 7.4 10^3/ uL Normal 3.5-10.8 Diff [phone] Count Red Blood Count 4.79 10^6/uL Normal 3.70-4.87 [...] Blood Cells % 0.1 Comp Metabolic 05/04/2019 [facility] Sodium 138 mmol/ L Normal 135-145 Panel [phone] Potassium 4.3 mmol/L Normal 3.5-5.0 Chloride 103 [...] Egfr Non- 97.3 >60 Egfr 117.7 >60 26 Laboratory test 05/04/2019 [facility] Magnesium 2.2 mg/dL Normal 1.9-2.7 27 finding [phone] Digoxin 1.5 ng/ml Normal 0.8-2.0 28 TSH (Thyroid Stimulating Horm) 2.14 mcIU/mL Normal 0.34-5.60 29 1 REFERENCE VALUE <1:80 (Negative) 2 Test Performed by: [place] [address] [employer] Attendant: Kurt Pro M.D. Ph.D.; CLIA# [id number] 3 [id number] REFERENCE VALUE <20.0 (Negative) Test Performed by: [place] [address] [employer] Attendant: Kurt Pro M.D. Ph.D.; CLIA# [id number] 5 [id number] ADDITIONAL INFORMATION This test was developed using an analyte specific reagent. Its performance characteristics were determined by [facility] in a manner consistent with CLIA requirements. This test has not been cleared or approved by the U.S. Food and Drug Administration. 8 ADDITIONAL INFORMATION This test was developed using an analyte specific reagent. Its performance characteristics were determined by [facility] in a manner consistent with CLIA requirements. This test has not been cleared or approved by the U.S. Food and Drug Administration. 9 ADDITIONAL INFORMATION This test was developed using an analyte specific reagent. Its performance characteristics were determined by [facility] in a manner consistent with CLIA requirements. This test has not been cleared or approved by the U.S. Food and Drug Administration. 10 No evidence of antibodies to B. burgdorferi detected. False negative results may occur in recently infected patients (<=2 weeks) due to low or undetectable antibody levels to B. burgdorferi. If recent exposure is suspected, a second sample should be collected and tested in 2-4 weeks. Test Performed by: [facility] - [address] [address] [employer] Attendant: Kurt Pro M.D. Ph.D.; CLIA# [id number] 11 Specific serologic response to B. burgdorferi infection is not detected, but cannot rule out early infection during which low or undetectable antibody levels to B. burgdorferi may be present. If clinically indicated, a new serum specimen should be submitted in 7-14 days. ADDITIONAL INFORMATION Per CDC criteria, the Lyme IgG Immunoblot is interpreted as positive if IgG-class antibodies are detected to >=5 B. burgdorferi proteins, and the Lyme IgM Immunoblot is interpreted as positive if IgM-class antibodies are detected to >=2 B. burgdorferi proteins. Immunoblot patterns not meeting these criteria should not be interpreted as positive. Epitopes from certain B. burgdorferi proteins (e.g., p41) are conserved across other bacteria, which may lead to the detection of IgM- and/or IgG-class antibodies on the Lyme disease immunoblots in patients without Lyme disease. Immunoblot should only be ordered on specimens that are positive or equivocal by a FDA-licensed Lyme disease antibody screening test (e.g., EIA). Results of the Lyme IgM immunoblot should not be considered in patients with >= 30 days of symptoms. Test Performed by: [facility] [address] [place] [address] [employer] Attendant: Kurt Pro M.D. Ph.D.; CLIA# [id number] 12 Total 25-Hydroxyvitamin D2 and D3 (25-OH-VitD) <10 ng/mL (severe deficiency) 10-19 ng/mL (mild to moderate deficiency) 20-50 ng/mL (optimum levels) 51-80 ng/mL (increased risk of hypercalciuria) >80 ng/mL (toxicity possible) 13 Normal Range 180 to 914 Indeterminate Range 145 to 180 Deficient Range <145 14 Because ethnic data is not always readily [...] 15-29 5 Kidney failure <15 (or dialysis) 15 [id number] 16 Because ethnic data is not always readily [...] 15-29 5 Kidney failure <15 (or dialysis) 17 [id number] 18 <5.0 Negative 5.0 - 25.0 Indeterminate (Repeat testing recommended after 72 hours) >25.0 Positive Perimenopausal women can display HCG levels of up to 20 mIU/mL 19 Therapeutic concentration: <50 ug/mL Toxic concentration: >120 ug/mL 20 Because ethnic data is not always readily [...] 15-29 5 Kidney failure <15 (or dialysis) 21 SEE RESULT BELOW Name: DU BUENO : [address]: Nelson Liriano MD Acct: [id number] Unit: [id number] AGE: 48 Location: Re07/30/19 SEX: F Status: DEP ER SPEC: [id number] REJI: 07/30/[address]: Nelson Liriano MD REQ: [id number] RECD: 07/30/19 STATUS:BAKARI SALAZAR DR: Yvan Crockett NP _ SOURCE: URINE SPDESC: ORDERED: Urine Culture Procedure Result Reported Site Urine Culture Final 07/31/19- 165 ML No Growth (<1,000 CFU/mL) * ML - Main Lab . END OF REPORT DEPARTMENT OF PATHOLOGY, [address] [place] [address] Isai Lino M.D. Director [facility] # [id number] 22 Because ethnic data is not always readily [...] 15-29 5 Kidney failure <15 (or dialysis) 23 [id number] 24 Because ethnic data is not always readily [...] 15-29 5 Kidney failure <15 (or dialysis) 25 Standard intensity warfarin therapeutic range: 2.0-3.0 High intensity warfarin therapeutic range: 2.5-3.5 26 Because ethnic data is not always readily [...] 15-29 5 Kidney failure <15 (or dialysis) 27 FASTING Copy Result to: YVAN CROCKETT NP ([id number]) 28 FASTING Copy Result to: YVAN CROCKETT RAILCAR MECHANIC ([id number]) 29 FASTING Copy Result to: YVAN CROCKETT NP ([id number]) Procedures Description No Information Available Medical Devices Description No Information Available Encounters Type Date Location Provider Dx Diagnosis Office Visit 09/21/2019 11:15a Main Office Yvan Crockett, R53.83 Other fatigue DIRECTOR BIOSTATISTICS-C M13.0 Polyarthritis, unspecified R94.5 Abnormal results of liver function studies F33.1 Major depressive disorder, recurrent, moderate Office Visit 08/05/2019 3:15p Main Office Yvan Crockett, R94.5 Abnormal results DIRECTOR BIOSTATISTICS-C of liver function studies M54.5 Low back pain K59.00 Constipation, unspecified R23.3 Spontaneous ecchymoses G40.89 Other seizures Office Visit 07/27/2019 2:00p Main Office Rehana Mckinney, R10.9 Unspecified RAILCAR MECHANIC abdominal pain M79.661 Pain in right lower leg Office Visit 07/19/2019 11:00a Main Office Rehana Mckinney NP R60.9 Edema, unspecified M54.2 Cervicalgia Office Visit 07/01/2019 10:30a Main Office Yvan Mathew Z01.818 Encounter for other Storm, DIRECTOR BIOSTATISTICS-C preprocedural examination Office Visit 06/18/2019 2:30p Main Office Yvan Mathew R53.83 Other fatigue Storm, DIRECTOR BIOSTATISTICS-C K22.4 Dyskinesia of esophagus Assessments Date Code Description Provider 10/19/2019 M54.5 Low back pain Yvan Crockett, DIRECTOR BIOSTATISTICS-C 10/19/2019 F32.89 Other specified depressive episodes Yvan Crockett DIRECTOR BIOSTATISTICS- C 09/21/2019 R53.83 Other fatigue Yvan ShirinClemencia Crockett DIRECTOR BIOSTATISTICS-C 09/21/2019 M13.0 Polyarthritis, unspecified Yvan ShirinClemencia Crockett, DIRECTOR BIOSTATISTICS-C 09/21/2019 R94.5 Abnormal results of liver function studies Yvan ShirinClemencia Crockett DIRECTOR BIOSTATISTICS-C 09/21/2019 F33.1 Major depressive disorder, recurrent, Yvan Crockett DIRECTOR BIOSTATISTICS -C moderate 09/02/2019 R10.9 Unspecified abdominal pain Yvan ShirinClemencia Crockett, DIRECTOR BIOSTATISTICS-C 09/02/2019 R10.9 Unspecified abdominal pain [facility] 09/02/2019 R94.5 Abnormal results of liver function studies Yvan Crockett DIRECTOR BIOSTATISTICS-C 09/02/2019 R94.5 Abnormal results of liver function studies [facility] 08/05/2019 R94.5 Abnormal results of liver function studies Yvan Crockett DIRECTOR BIOSTATISTICS-C 08/05/2019 M54.5 Low back pain Yvan Crockett DIRECTOR BIOSTATISTICS-C 08/05/2019 K59.00 Constipation, unspecified Yvan Crockett, DIRECTOR BIOSTATISTICS-C 08/05/2019 R23.3 Spontaneous ecchymoses Yvan Crockett DIRECTOR BIOSTATISTICS-C 08/05/2019 G40.89 Other seizures Yvan Crockett DIRECTOR BIOSTATISTICS-C 07/27/2019 R10.9 Unspecified abdominal pain Rehana Mckinney, RAILCAR MECHANIC 07/27/2019 M79.661 Pain in right lower leg Rehana Mckinney, RAILCAR MECHANIC 07/19/2019 R60.9 Edema, unspecified Rehana Mckinney, RAILCAR MECHANIC 07/19/2019 M54.2 Cervicalgia Rehana Mckinney, RAILCAR MECHANIC 07/01/2019 Z01.818 Encounter for other preprocedural KAYLYN Laughlin-C examination 06/18/2019 R53.83 Other fatigue KAYLYN Laughlin-C 06/18/2019 K22.4 Dyskinesia of esophagus AINSLEY Laughlin Plan of Treatment Future Appointment(s):10/28/2019 8:45 am - AINSLEY Laughlin at Main Xkiuvb7810/19/2019 - Yvan Crockett, DIRECTOR BIOSTATISTICS-CM54.5 Low back painComments:continue lidocaine and oxycodone as needed. stop motrin and use tylenol krydznvN43.89 Other specified depressive episodesComments:started higher dose effexor less than a week ago, allow more time for this to work. She is unhappy with her living situation, suggest making changes to improve this Functional Status Description No Information Available Mental Status Description No Information Available Referrals Refer to Dr Reason for Referral Status Appt Date Kassidy Fonseca, AINSLEY Referral to Charanjit Fonseca, elevated liver Created enzymes, fatty liver, nutritional medicine consultation. - - Please contact Pt to schedule appt. - - Please fax appointment date/time to [facility], . [facility] [address], [place] [address] [phone] Reinaldo Bassett MD Referral to neurology for further evaluation, Scheduled 09/28/2019 seizure like episodes - - Please contact Pt to schedule appt. - - Please fax appointment date/time to [facility], [phone]. [address] [facility] [place] [address] [place] [address] [phone]
--- OUTSIDE RECORDS SUMMARY | 2019-10-26 02:43 | XMS REPORT ---
:1970 Author Organization [facility] Health Care Team Providers Name Role Phone Justen Tomlinson Unavailable Unavailable PROBLEMS Unknown Problems ALLERGIES No Information ENCOUNTERS Encounter Location Date Diagnosis [facility] [address] [place] [address] Oct, [facility] [address] [place] [address] Sep, [facility] [address] [place] [address] Sep, [facility] [address] [place] [address] Sep, [facility] [address] [place] [address] Sep, [facility] [address] [place] [address] Aug, [facility] [address] [place] [address] Aug, [address] [facility] [address] [place] [address] Jul, [facility] [address] [place] [address] Jun, [place] [address] [place] Apr, [address] [facility] [address] [place] [address] Dec, [facility] [address] [place] [address] Nov, [facility] [address] [place] [address] Oct, [address] Sep, [address] [facility] [address] [place] [address] Sep, [facility] [address] [place] [address] Aug, [address] Aug, [address] [facility] [address] [place] [address] Aug, [facility] [address] [place] [address] Jul, [address] Jul, [address] [facility] [address] [place] [address] Jun, [facility] [address] [place] [facility] [place] [address] Jun, [address] May, [address] Apr, [address] [facility] [address] [place] [address] Apr, [facility] [address] [place] [address] Feb, [facility] [address] [place] [address] Dec, [address] Nov, [address] Nov, [address] [facility] [address] [place] [address] Sep, [address] Sep, [address] [facility] [address] [place] [address] Jul, [facility] [address] [place] [facility] [place] [address] Jul, [address] Dec, [address] [facility] [address] [place] [address] Dec, [facility] [address] [place] [address] Dec, [facility] [address] [place] [address] Sep, [facility] [address] [place] [address] May, [facility] [address] [place] [address] Apr, [facility] [address] [place] [address] Apr, [facility] [address] [place] [address] Apr, [facility] [address] [place] [address] Mar, IMMUNIZATIONS No Known Immunizations SOCIAL HISTORY Never Assessed REASON FOR REFERRAL FUNCTIONAL STATUS PLAN OF CARE VITAL SIGNS MEDICATIONS Unknown Medications PROCEDURES No Known procedures RESULTS No Results REASON FOR VISIT Refill Medication Insurance Providers [facility] Member Patient Patient Patient Patient Patient Subscriber Subscriber Subscriber Group Insurance Plan Plan Plan Plan ID Relationship Address Phone Name Date of ID Name Date of No Type Insurance Insurance Insurance Coverage to Subscriber Address Phone Name Dates Case [phone] Case self Shamika [id number] Management [place] 02 Management [facility] [address] Community Medicaid [id number] [phone] Medicaid self Shamika [id number] Wrap [facility] 56 Wrap [facility] [address] Link 5232 Wit [phone] Link self Shamika [id number] Count Includes [facility] 42 Health [place]ee Medicaid [place] Medical [place] Medical [id number] Danny [phone] [place] self Shamika [id number] Medicaid [place] 47 [place] [id number] Medical Link [phone] Link self Shamika [id number] Health [address] Att[address] 83 [facility] GG518 [place] Claims [id number] [place] Hplex Myra Dept Hplex [facility] [address] [place] [phone] Danny self Shamika [id number] Medicaid [id number] Medicaid [facility] [place] [id number] [employer] MEDICAL (GENERAL) HISTORY Type Description Date Medical History anxiety Medical History depression Medical History fibromyalgia
--- OUTSIDE RECORDS SUMMARY | 2019-10-26 02:43 | XMS REPORT ---
:1970 Author Organization [facility] Health Care Team Providers Name Role Phone Justen Tomlinson Unavailable Unavailable PROBLEMS Unknown Problems ALLERGIES No Information ENCOUNTERS Encounter Location Date Diagnosis [facility] [address] [place] [address] Oct, [facility] [address] [place] [address] Sep, [facility] [address] [place] [address] Sep, [place] [facility] [address] [place] [address] Sep, [place] [facility] [address] [place] [address] Sep, [place] [facility] [address] [place] [address] Aug, [facility] [address] [place] [address] Aug, [address] [facility] [address] [place] [address] Jul, [facility] [address] [place] [address] Jun, [place] [address] [place] Apr, [address] [facility] [address] [place] [address] Dec, [facility] [address] [place] [address] Nov, [facility] [address] [place] [address] Oct, [address] Sep, [address] [facility] [address] [place] [address] Sep, [facility] [address] [place] [address] Aug, [address] Aug, [address] [facility] [address] [place] [address] Aug, [place] [facility] [address] [place] [address] Jul, [address] Jul, [address] [place] [facility] [address] [place] [address] Jun, [place] [facility] [address] [place] [address] Jun, [address] May, [address] Apr, [address] [place] [facility] [address] [place] [address] Apr, [place] [facility] [address] [place] [address] Feb, [place] [facility] [address] [place] [address] Dec, [address] Nov, [address] Nov, [address] [place] [facility] [address] [place] [address] Sep, [address] Sep, [address] [place] [facility] [address] [place] [address] Jul, [place] [facility] [address] [place] [address] Jul, [address] Dec, [address] [place] [facility] [address] [place] [address] Dec, [place] [facility] [address] [place] [address] Dec, [place] [facility] [address] [place] [address] Sep, [place] [facility] [address] [place] [address] May, [place] [facility] [address] [place] [address] Apr, [place] [facility] [address] [place] [address] Apr, [place] [facility] [address] [place] [address] Apr, [facility] [address] [place] [address] Mar, IMMUNIZATIONS No Known Immunizations SOCIAL HISTORY Never Assessed REASON FOR REFERRAL FUNCTIONAL STATUS PLAN OF CARE VITAL SIGNS MEDICATIONS Medication Instructions Dosage Frequency Start Date End Date Duration Status Digoxin Unknown Oxycodone-Acetamin Unknown ophen Clonazepam Unknown Effexor Unknown Gabapentin Unknown Vitamin D Unknown PROCEDURES Procedure Date Ordered Result Body Site LTD ORAL EVALUATION-PROBLEM FOCUS Oct 14, 2019 RESULTS No Results REASON FOR VISIT Insurance Providers [facility] Member Patient Patient Patient Patient Patient Subscriber Subscriber Subscriber Group Insurance Plan Plan Plan Plan ID Relationship Address Phone Name Date of ID Name Date of No Type Insurance Insurance Insurance Coverage to Subscriber Address Phone Name Dates Link [phone] Link self Shamika [id number] [facility] [address] [facility] GG[address] [place] [id number] [place] Hplex Myra Dept Hplex [facility] [address] [place] [phone] Danny self Shamika [id number] Medicaid [place] 47 [place] [id number] Medical [place] [phone] Danny self Shamika [id number] Medicaid [id number] Medicaid [facility] [id number] [employer] Medicaid [id number] [phone] Medicaid self Shamika [id number] Wrap [facility] 56 Wrap [facility] [address] Link 5232 [place] [phone] Link self Shamika [id number] [facility] 42 [facility] Medicaid [place] Medicaid Medical [place] Medical [id number] Case [phone] Case self Shamika [id number] Management [place] 02 [facility] [address] [facility] MEDICAL (GENERAL) HISTORY Type Description Date Medical History anxiety Medical History depression Medical History fibromyalgia
--- OUTSIDE RECORDS SUMMARY | 2019-10-26 02:43 | XMS REPORT | Continuity of Care Document ---
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 Unavailable Unavailable Allergies, Adverse Reactions, Alerts Substance Reaction Status No Known Allergies Active Medications Medication Instructions Dosage Effective Dates Status Comments (start - stop) Effexor XR 150 mg take 1 capsule by 150 MG - Active capsule,extended oral route every release day diazepam 5 mg/5 mL (1 take 5 milliliter - Active mg/mL) oral solution by oral route PRN MISCELLANEOUS TENS unit - Active cyclobenzaprine 10 mg take 1 tablet by 10 MG - Active tablet oral route 3 times every day ibuprofen 100 mg/5 mL take 10 milliliter 200 MG - Active oral suspension by oral route every 6 hours as needed with food Lidocaine Pain Relief - Active 4 % topical patch diclofenac 1 % topical apply (2G) by - Active gel topical route 4 times every day to the affected area(s) omeprazole 20 mg take 1 capsule by 20 MG - Active capsule,delayed oral route every release day 30 minutes to 1 hour before a meal Vitamin D2 50,000 unit take 1 capsule by 12971 UNITS - Active capsule oral route every week benzonatate 200 mg take 1 capsule by 200 MG - Active capsule oral route 3 times every day as needed for cough clonazepam 0.5 mg take 1 tablet by 0.5 MG - Active tablet oral route 3 times every day digoxin 125 mcg tablet take 1 tablet by 125 MCG - Active oral route every day gabapentin 300 mg take 1 capsule by 300 MG - Active capsule oral route 3 times every day hydroxyzine HCl 10 mg - Active tablet ondansetron 4 mg take 1 tablet by 4 MG - Active disintegrating tablet oral route every [address] on top of the tongue where they will dissolve, then swallow oxycodone-acetaminophe take 1 tablet by 1 tablet - Active n 5 mg-325 mg tablet oral route every 4 hours as needed ProAir HFA 90 inhale 2 puff by 180 MCG - Active mcg/actuation aerosol inhalation route inhaler every 4 - 6 hours as needed Seroquel 50 mg tablet take 1 tablet by 50 MG - Active oral route 2 times every day Problems Condition Effective Dates (start - stop) Clinical Status Cervical herniated disc Encounter for other specified surgical - aftercare Cervicalgia Encounter for other specified surgical aftercare Cervical radiculopathy Other cervical disc degeneration at - C5-C6 level Other cervical disc degeneration at - C6-C7 level Osteophyte, vertebrae - Other cord compression - Lumbar spondylosis Lumbar disc disease Lumbar radiculopathy Nonintractable headache, unspecified chronicity pattern, unspecified headache type Other intervertebral disc - degeneration, lumbar region Other intervertebral disc - degeneration, lumbosacral region Other spondylosis, lumbar region - Oth disrd of bone density and - structure, other site Other cervical disc displacement at - C4-C5 level Other cervical disc displacement at - C5-C6 level Other cervical disc degeneration at - C4-C5 level Other cervical disc degeneration at - C5-C6 level Cervical disc disorder at C6-C7 level - with radiculopathy Spinal stenosis, lumbar region without - neurogenic agustín Spinal stenosis, lumbosacral region - Lumbar spondylosis Cervical spondylosis without myelopathy Spinal stenosis, cervical region - Oth specific arthropathies, NEC, oth - site Other spondylosis, lumbar region - Spinal stenosis, lumbar region without - neurogenic agustín Sacrococcygeal disorders, not - elsewhere classified Low back pain associated with a spinal disorder other than radiculopathy or spinal stenosis Cervicalgia Dorsalgia, unspecified - Other cervical disc degeneration, unsp - cervical region Cervical spondylosis without myelopathy Left arm numbness Cervical stenosis of spinal canal Sacrococcygeal disorders, not - elsewhere classified Other cervical disc degeneration at - C4-C5 level Other cervical disc degeneration at - C5-C6 level Other cervical disc degeneration at - C6-C7 level Oth specific arthropathies, NEC, oth - site Cervicalgia Sprain of ligaments of cervical spine, - subsequent encounter Cervical spondylosis without myelopathy Bilateral hand numbness Lumbar spondylosis Lumbar radiculopathy Pain of right sacroiliac joint Other spondylosis, lumbar region - Spinal stenosis, lumbar region without - neurogenic agustín Sacroiliitis, not elsewhere classified - Other spondylosis, cervical region - Other cervical disc degeneration at - C4-C5 level Other cervical disc degeneration at - C5-C6 level Other cervical disc degeneration at - C6-C7 level Paresthesia of skin - Spondylosis w/o myelopathy or radiculopathy, lumbar region Cervicalgia Other spondylosis, lumbar region - Spondylosis w/o myelopathy or radiculopathy, lumbar region Headache Cervicalgia - Lumbar spondylosis Spondylosis w/o myelopathy or - radiculopathy, lumbar region Pain in right leg - Pain in left leg - Tobacco use - Lumbar spondylosis Low back pain - Pain in right leg - Pain in left leg - Cervicalgia - Headache - Low back pain radiating to both legs Cervicalgia - Pain in right leg - Pain in left leg - Headache - Procedures Procedure Date Procedure Unknown Results Test Name Date and Time Measure Units Reference Range Abnormal Flag Status Comments Unknown Encounters Encounter Practice Location Reason(s) Diagnoses Date Provider Providers Description For Visit Copied on Encounter 0001 - [facility] Jay-0 [employer] [facility], Population 6-202 CARE. . 33-57 Health [address] [place], [address], [place] tel:+ [phone] 0001 - [facility] Cervical Dec-0 [facility], Neurosurgery herniated 3-201 ADE. 46 33-57 discEncounter 9 Jl Parikh for other [facility], specified [place], [place], aftercare [address]. [address], [place] tel:+[phone] tel:[phone] 0001 - [facility] CervicalgiaEncou Jun- [facility] Inc, Neurosurgery nter for other 0-201 GABO. 46 33-57 specified 9 Jl Parikh [facility], [place], aftercare [place], [place], [place], [address]. [address], [place] tel:+[phone] tel:[phone] 0001 - [facility] Cervical Sep-2 [facility], Neurosurgery radiculopathyOth 6 ADE. 46 33-57 er cervical disc 9 Jl Parikh degeneration at [facility], C5-C6 levelOther [facility] cervical disc [place], [place] [address]. [address], [place] C6-C7 tel:+607 tel:+60 levelOsteophyte, [phone] vertebraeOther cord compression 0001 - [facility]- [facility], Management spondylosisLumba AWYNE. 3357 r disc 9 [address]um[address] [facility], radiculopathyNon [facility] intractable Floor 2, [place], [place], [place] [address], [place] unspecified [place], tel:60 chronicity [phone]. [phone] pattern, tel:+60 unspecified [phone] headache typeOther intervertebral disc degeneration, lumbar regionOther intervertebral disc degeneration, lumbosacral regionOther spondylosis, lumbar regionOth disrd of bone density and structure, other siteOther cervical disc displacement at C4-C5 levelOther cervical disc displacement at C5-C6 levelOther cervical disc degeneration at C4-C5 levelOther cervical disc degeneration at C5-C6 levelCervical disc disorder at C6-C7 level with radiculopathySpi nal stenosis, lumbar region without neurogenic claudSpinal stenosis, lumbosacral region 0001 - [facility] Pain Lumbar January- [employer], Management spondylosisCervi FARIBA. 52 33-57 donny spondylosis [address], Street, myelopathySpinal Floor 2, Krish stenosis, [place], cervical [place], [address], [place] regionOth [address]. tel:+ specific tel:+ [phone] arthropathies, [phone] NEC, oth siteOther spondylosis, lumbar regionSpinal stenosis, lumbar region without neurogenic claudSacrococcyg eal disorders, not elsewhere classified 0001 - [facility] Low back pain Nov- MARY LOU [employer], Neurosurgery associated with ADESH. 46 33-57 a spinal 9 Jl Parikh disorder other [facility], than [facility] radiculopathy or [place], [place] [address]. [address], [place] stenosisCervical tel: tel:+ giaDorsalgia, [phone] unspecifiedOther cervical disc degeneration, unsp cervical region 0001 - [facility] Pain Cervical Nov- [employer], Management spondylosis FARIBA. 52 33-57 without [address], Street, arm Floor 2, [place] numbnessCervical [place], [place], [address], [place] spinal [address]. tel: canalSacrococcyg tel: [phone] eal disorders, [phone] not elsewhere classifiedOther cervical disc degeneration at C4-C5 levelOther cervical disc degeneration at C5-C6 levelOther cervical disc degeneration at C6-C7 levelOth specific arthropathies, NEC, oth site 0001 - [facility] CervicalgiaSprai Feb-0 BYNUM [employer], Neurosurgery n of ligaments - GABO. 46 33-57 of cervical 9 Jl Mattaon spine, Street, Street, subsequent [facility] encounter [facility], [place], [place], [address]. [address], [place] tel: tel: [phone] 0001 - [facility] Pain Cervical Feb-0 JUÁREZ [employer], Management spondylosis FARIBA. 52 -57 without 9 [facility], [place], [facility] Floor 2, [place] numbnessLumbar [place], [place], [address], [place] [address]. tel: radiculopathyPai tel: [phone] n of right [phone] sacroiliac jointOther spondylosis, lumbar regionSpinal stenosis, lumbar region without neurogenic claudSacroiliiti s, not elsewhere classifiedOther spondylosis, cervical regionOther cervical disc degeneration at C4-C5 levelOther cervical disc degeneration at C5-C6 levelOther cervical disc degeneration at C6-C7 levelParesthesia of skin 0001 - [facility] Pain Spondylosis w/o FATEMEH [employer], Management myelopathy or CORW. radiculopathy, 9 [address] [place] lumbar [facility] [place], [place], [address], [place] lumbar region [address]. tel: tel: [phone] 0001 - [facility] Pain Spondylosis w/o FATEMEH [employer], Management myelopathy or RCOW. radiculopathy, 8 [address] [place] lumbar [facility] rvicalgia [place], [place], [place], [address], [place] [address]. tel: tel: [phone] 0001 - [facility] Pain Lumbar FATEMEH [employer], Management spondylosis CROW. 8 52 [facility], [place], [place], [place], [place], [address], [place] [address]. tel: tel: [phone] 0001 - Physician Spondylosis w/o [employer], Services myelopathy or SHAWNTI. radiculopathy, 8 [address] [place] lumbar [facility], [facility] in [facility] right legPain in [place], [place], [address], [place] use [address]. tel: tel:[phone] 0001 - [facility] Pain Lumbar [employer], Management spondylosis [facility]. 8 52 [facility], Street, Krish Floor 2, [place], [place] [address], [place], [place], tel: [phone] tel:[phone] 0001 - Physician Low back [employer], Services painPain in [facility]. right legPain in [address], legC[facility]icSelect [facility] [address], [place], [place], [place], [address], [place] [address]. tel: tel:[phone] 0001 - [facility] Pain Low back pain [employer], Management radiating to WAYNE. both 7 [address] [place] legsCervicalgiaP [facility], ain in right Street, Krish legPain in left Floor 2, [place], [place], legHeadache [place] [address], [place], [place], tel: [phone]. [phone] tel:[phone] Family History Family Member Diagnosis Age At Onset Father Mother Brother Immunizations Vaccine Date Status Comments Immunization Unknown Payers Payer name Insurance type Covered libertarian ID Authorization(s) Danny Carter [id number] Social History Type Description Quantity Date Captured Comments Alcohol Use Details Unknown Caffeine Use Details Unknown Tobacco Use Status Smoking Status Unknown Vital Signs Date / Height Weight BMI Pulse Blood Temperature Respiratory Body Head BMI Time: Rate Pressure Rate Surface Circumference percentile Area Unknown Chief Complaint And Reason For Visit No information Reason For Referral Reason For Referral Unknown Plan Of Care Date Type Action Status Goal Tobacco cessation counseling completed Goal Tobacco cessation counseling completed Referral Ordered: ordered Xray exam:Spine,Cervical; 2 or 3 views Referral Referred To: ordered [place] or equivalent rigid cervical collar Ordered: Referrals: [place] or equivalent rigid cervical collar Referral Referred To: ordered CERVICAL FOAM COLLAR Ordered: Referrals: CERVICAL FOAM COLLAR Referral Ordered: ordered STEVEN STRONG MD -Neurology (related to Nonintractable headache, unspecified chronicity pattern, unspecified headache type) Referral Referred To: ordered STEVEN STRONG MD [address] [place], [address] [phone] Ordered: Referrals: Neurology. STEVEN STRONG MD. Evaluate and treat Referral Ordered: ordered MRI of cervical spine w/o contrast Referral Ordered: ordered Xray Spine Cervical complete w/flex & ext Referral Referred To: ordered Physical Therapy Ordered: Referrals: Physical Therapy. Location: [facility]. Evaluate and treat Referral Ordered: ordered MRI of lumbar spine W/o Contrast Referral Ordered: ordered Xray Spine Lumbar complete standing Appointment DU CAAL Type Problem Goal Intervention Status Start Date Unknown History Of Present Illness Encounter Date Complaint History Of Present Illness No information Functional Status Encounter Date Functional Assessment Cognitive Assessment Unknown Medications Administered Medication Instructions Dosage Effective Dates (start - stop) Status Comments Drug Treatment Unknown Instructions Date Instruction Additional Information Advance activity as tolerated Related to Encounter for other specified surgical aftercare Discussed wound care Related to Encounter for other specified surgical aftercare Discussed post op care/precautions Related to Encounter for other specified surgical aftercare schedule physical therapy Related to Encounter for other specified surgical aftercare Arrange Caudal epidural steroid Related to Lumbar radiculopathy injection Have a disc mailed to us with your MRI Related to Cervical spondylosis Cervical Spine without myelopathy Proceed with MRI lumbar spine as ordered Related to Lumbar spondylosis by your PCP and have a disc mailed to us Risks and benefits of new medication Related to Low back pain discussed. associated with a spinal disorder other than radiculopathy or spinal stenosis Schedule Bilateral C3-4, 4-5, 5-6, 6-7 Related to Cervical spondylosis Facet joint injection with Dr without myelopathy BennettContinue therapy Physical therapy referralFollow up with Related to Cervicalgia [facility] for evaluation of Cervical spine pain management modalitiesFollow up here after the diagnostics in [address] Mckeon Schedule BILATERAL SI joint injections Related to Pain of right sacroiliac joint Obtain a new MRI Scan of the neckProceed Related to Cervical spondylosis with PT for the neck without myelopathy arrange bilateral L4/5 and L5/S1 facet Related to Spondylosis w/o injections by Dr. Lindafollow up after myelopathy or radiculopathy, injectionAssociated risks, benefits and lumbar region alternative therapies discussed. Would like to proceed with injection. Questions addressed and agreeable with plan.A spinal or joint injection has been discussed and recommended as part of the treatment plan for your pain. If your procedure appointment was not made today, my office will contact you for scheduling after insurance authorization is obtained, if required. This may take 2-3 weeks. If you have not heard from the office in that time frame, please call us for futher information. x-ray of the cervical spinephysical Related to Cervicalgia therapy referral will consult with Dr. Linda regarding Related to Spondylosis w/ o injections vs consideration of dorsal myelopathy or radiculopathy, column stimulator lumbar region good response to recent injections Related to Lumbar spondylosis follow up in 3 months, sooner if needed Arrange BILATERAL L4/5 and L5/S1 facet Related to Lumbar spondylosis injections
--- OUTSIDE RECORDS SUMMARY | 2019-10-26 02:43 | XMS REPORT ---
:1970 Author Organization [facility] Care Team Providers Name Role Phone Justen Tomlinson Unavailable Unavailable PROBLEMS Unknown Problems ALLERGIES No Information ENCOUNTERS Encounter Location Date Diagnosis [place] [facility] [address] [place] [address] Sep, [facility] [address] [place] [address] Aug, [address] Aug, [address] [facility] [address] [place] [address] Jul, [facility] [address] [place] [address] Jun, [address] Apr, [address] [facility] [address] [place] [address] Dec, [facility] [address] [place] [address] Nov, [address] Oct, [address] Sep, [address] [facility] [address] [place] [address] Sep, [facility] [address] [place] [address] Aug, [address] Aug, [address] [facility] [address] [place] [address] Aug, [facility] [address] [place] [address] Jul, [address] Jul, [address] [facility] [address] [place] [address] Jun, [place] [address] [address] Jun, [address] May, [address] Apr, [address] [address] Apr, [place] [address] [address] Feb, [address] [address] Dec, [address] Nov, [address] Nov, [address] [address] Sep, [address] Sep, [address] [address] Jul, [address] [address] Jul, [address] Dec, [address] [address] Dec, [address] [address] Dec, [address] [address] Sep, [address] [address] May, [place] [address] [address] Apr, [address] [address] Apr, [address] [address] Apr, [facility] [address] [place] [address] Mar, IMMUNIZATIONS No Known Immunizations SOCIAL HISTORY Never Assessed REASON FOR REFERRAL FUNCTIONAL STATUS PLAN OF CARE VITAL SIGNS MEDICATIONS Medication Instructions Dosage Frequency Start Date End Date Duration Status Effexor Unknown Oxycodone-Acetamin Unknown ophen Clonazepam Unknown Digoxin Unknown Gabapentin Unknown Vitamin D Unknown PROCEDURES Procedure Date Ordered Result Body Site INTRAORL-PERIAPICAL EA ADD FILM Sep 02, 2019 INTRAORL-PERIAPICAL EA ADD FILM Sep 02, 2019 INTRAORL-PERIAPICAL 1 FILM [id number] Sep 02, 2019 LTD ORAL EVALUATION-PROBLEM FOCUS Sep 02, 2019 RESULTS No Results REASON FOR VISIT Insurance Providers [facility] Health Member Patient Patient Patient Patient Patient Subscriber Subscriber Subscriber Group Insurance Plan Plan Plan Plan ID Relationship Address Phone Name Date of ID Name Date of No Type Insurance Insurance Insurance Coverage to Subscriber Address Phone Name Dates Link [address] [phone] Link self Shamika [id number] [facility] Health [place] Medical [place] Medical [id number] Link [phone] Link self Shamika [id number] [facility] [address] [facility] [address] [place] Claims [id number] [place] Hplex Myra Dept Hplex Myra [facility] [address] Case [phone] Case self Shamika [id number] Management [place] 02 Management [facility] [address] Community Medicaid [id number] [phone] Medicaid self Shamika [id number] Wrap [facility] [address] [facility] [address] [phone] Danny self Shamika [id number] Medicaid [id number] Medicaid [facility] [place] [address] [employer] Danny [phone] Danny self Shamika [id number] Medicaid [place] [address] [place] [address] Medical MEDICAL (GENERAL) HISTORY Type Description Date Medical History anxiety Medical History depression Medical History fibromyalgia
[2019-10-26 05:37] LABS: ABS Basophils 0.1 10^3/ul (0-0.2); ABS Eosinophils 0.5 10^3/ul (0-0.6); ABS Lymphocytes 3.5 10^3/ul (1.0-4.8); ABS Monocytes 0.7 10^3/ul (0-0.8); Hematocrit 43 % (35-47); Hemoglobin 14.7 g/dL (12.0-16.0); Mean Corpuscular HGB Conc 34 g/dL (31-36); Mean Corpuscular Hemoglobin 31 pg (27-31); Mean Corpuscular Volume 91 fL (80-97); Mean Platelet Volume 7.7 fL (7.4-10.4); Nucleated Red Blood Cells % 0.1; Platelet Count 287 10^3/uL (150-450); Red Blood Count 4.75 10^6 /uL (3.70-4.87); Red Cell Distribution Width 13 % (10-15); White Blood Count 10.8 10^3/uL (3.5-10.8)
[2019-10-26 05:49] LABS: INR 0.89 (0.82-1.09)
[2019-10-26] MEDS ORDERED: Ketorolac INJ* 30 MG/ML 1 ML VIAL IM ONE (05:51)
[2019-10-26 05:54] LABS: Albumin 4.1 g/dL (3.2-5.2); Albumin/Globulin Ratio 1.4 (1-3); BUN/Creatinine Ratio 22.7 (8-20); Calcium 9.2 mg/dL (8.6-10.3); EGFR African American 115.7 (>60); EGFR Non-African American 95.6 (>60); Globulin 2.9 g/dL (2-4); Potassium 4.2 mmol/L (3.5-5.0); Total Bilirubin 0.3 mg/dL (0.2-1.0)
--- NOTE | 2019-10-26 06:29 | ED ---
Throat Pain/Nasal Congestion - HPI Summary HPI Summary: Patient is a 48 y/o F presenting to [facility] with complaints of right lower back molar pain with radiation to her head, neck, and jaw. She states that she had a filling placed at this molar on October 07. Patient subsequently developed pain, she was prescribed zithromax and clindamycin. She has also been taking OTC medications such as ibuprofen and ASA and applying ice and heat to the area. However, her pain persisted and exacerbated a few days ago. 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 Episodes of emesis a few days ago are noted as well. Fevers are denied. PMHx of PNA, GERD, hiatal hernia, kidney stones, fibromyalgia, MOYER, anxiety, depression, panic disorder, PTSD. PSHx of cervical spine surgery and heller myotomy fundoplication. Home medications and allergies are reviewed. - History of Current Complaint Chief Complaint: EDDentalPain Time Seen by Provider: 10/26/19 05:10 Hx Obtained From: Patient Onset/Duration: Still Present Severity: Severe Associated Signs And Symptoms: Positive: Negative Cough: None - Allergies/Home Medications Allergies/Adverse Reactions: Allergies Allergy/AdvReac Type Severity Reaction Status Date / Time No Known Allergies Allergy Verified 10/26/19 02:37 PMH/Surg Hx/FS Hx/Imm Hx Endocrine/Hematology History: Denies: Hx Diabetes, Hx Systemic Lupus Erythematosus Cardiovascular History: Reports: Other Cardiovascular Problems/Disorders - HX SVT, palpitations, chest pain Denies: Hx Congestive Heart Failure, Hx Hypertension, Hx Pacemaker/ICD Respiratory History: Reports: Hx Pneumonia Denies: Hx Asthma, Other Respiratory Problems/Disorders GI History: Reports: Hx Gastroesophageal Reflux Disease, Hx Hiatal Hernia, Other GI Disorders - frequent vomiting, dysphagia History: Reports: Hx Kidney Stones, Other Problems/Disorders - Kidney Stents IN THE PAST Denies: Hx Dialysis, Hx Renal Disease Musculoskeletal History: Reports: Hx Arthritis, Hx Back Problems, Hx Fibromyalgia, Other Musculoskeletal History - chronic pain Denies: Hx Rheumatoid Arthritis Sensory History: Reports: Hx Contacts or Glasses Denies: Hx Hearing Aid Opthamlomology History: Reports: Hx Contacts or Glasses Neurological History: Reports: Hx Headaches Denies: Other Neuro Impairments/Disorders - PAIN CLINIC PT Psychiatric History: Reports: Hx Anxiety, Hx Depression, Hx Panic Disorder - PANIC ATTACKS MRI IS FINE, Hx Post Traumatic Stress Disorder - Cancer History Hx Chemotherapy: No Hx Radiation Therapy: No - Surgical History Surgery Procedure, Year, and Place: RIGHT Wrist Ganglion 1989 @ [facility] [place]; Kidney Stents [facility] [place];-REMOVED. endoscopical dilation 2016. HELLER MYOTOMY FUNDOPLICATION 06/11/18 Hx Anesthesia Reactions: No Infectious Disease History: No Infectious Disease History: Reports: Hx of Known/Suspected MRSA Denies: Traveled Outside the [place] in Last 30 Days - Family History Known Family History: Positive: Renal Disease - kidney stones, Other - kidney stones - Social History Alcohol Use: None Hx Substance Use: No Substance Use Type: Reports: Prescribed Hx Tobacco Use: Yes Smoking Status (MU): Light Every Day Tobacco Smoker Amount Used/How Often: 5-6 a day cigarettes - Additional Comments History Additional Comments: PMHx of PNA, GERD, hiatal hernia, kidney stones, fibromyalgia, MOYER, anxiety, depression, panic disorder, PTSD. PSHx of cervical spine surgery and heller myotomy fundoplication Review of Systems - ROS Summary Review of Systems Summary: Home Medications Medication Instructions Recorded Confirmed Type Gabapentin CAP(*) [Neurontin 300 900 mg PO TID 08/17/14 10/26/19 History CAP(*)] QUEtiapine XR TAB* [Seroquel Xr 50 50 mg PO BEDTIME PRN 08/17/14 10/26/19 History MG TAB*] Digoxin TAB* [Lanoxin TAB*] 1 tab PO DAILY 12/29/15 10/26/19 History Vitamin D CAP* [Drisdol CAP*] 50,000 units PO WEEKLY 06/02/17 10/26/19 History clonazePAM TAB(*) [KlonoPIN TAB(*)] 0.5 mg PO BID PRN 06/02/17 10/26/19 History hydrOXYzine HCL TAB* [Atarax 10 MG 10 mg PO TID PRN 06/02/17 10/26/19 History TAB*] oxyCODONE/Acetamin 5/325 MG* 1 tab PO Q6H PRN 06/02/17 10/26/19 History [Percocet 5/325 TAB*] Benzonatate 200 mg PO TID 10/20/18 10/26/19 History Cyclobenzaprine TAB* [Flexeril 10 5 - 10 mg PO TID PRN 10/20/18 10/26/19 History MG TAB*] Ibuprofen [Ibuprofen 100 MG/5 ML] 20 ml PO Q4HR PRN 10/20/18 10/26/19 History Acetaminophen PED LIQ* [Tylenol 10 ml PO Q4H PRN 07/30/19 10/26/19 History PED LIQ UDC*] Acetaminophen [Childrens 31 ml PO Q6H PRN 07/30/19 10/26/19 History Acetaminophen] Albuterol inh POWDER (NF) [Proair 1 - 2 puff INH Q6HR PRN 07/30/19 10/26/19 History Respiclick] Ascorbic Acid TAB* [Vitamin C 500 mg PO DAILY 07/30/19 10/26/19 History TAB*] Clindamycin Cap(NF) [Clindamycin 300 mg PO TID 07/30/19 10/26/19 History Cap 300 mg Cap(NF)] Diclofenac Sodium 4 gm TP QID 07/30/19 10/26/19 History Fluticasone NASAL SPRAY 50MCG* 2 spray BOTH NARES DAILY 07/30/19 10/26/19 History [Flonase NASAL SPRAY 50MCG*] Ibuprofen TAB* [Motrin TAB* 600 MG] 600 mg PO TID PRN 07/30/19 10/26/19 History Lidocaine PATCH 5%* [Lidoderm 5% 1 patch TRANSDERM DAILY 07/30/19 10/26/19 History Patch*] Ondansetron ODT TAB* [Zofran 4 MG 4 mg PO .Q6-8 HRS PRN 07/30/19 10/26/19 History Odt TAB*] Venlafaxine ER (NF) [Effexor ER 150 mg PO DAILY 07/30/19 10/26/19 History (NF)] diazePAM [Diazepam] 5 ml PO BID PRN MDD 10ml/day 07/30/19 10/26/19 History ondansetron HCL [Ondansetron HCl] 5 ml PO Q6H PRN 07/30/19 10/26/19 History Negative: Fever Positive: Dental Pain - right lower back molar pain with radiation to her head, neck, and jaw Positive: Vomiting All Other Systems Reviewed And Are Negative: Yes Physical Exam - Summary Physical Exam Summary: General: Well-developed, Well-nourished female. No acute distress. HEENT: Normocephalic, Atraumatic. Most posterior right lower tooth looks normal , the one before this tooth is missing. Eyes: Conjuctiva normal, PERRL. Oropharynx: Clear, mucous membranes moist, (-) exudates. Neck: Soft, FROM, (-) lymphadenopathy, (-) thyromegaly, (-) JVD. Cardiovascular: Normal sinus rhythm, (-) murmur. Lungs: Clear to auscultation bilaterally (-) wheezes, (-) rales, (-) rhonchi. Abdomen: Soft, non-tender, non-distended, (-) organomegaly, normal bowel sounds. Back: (-) CVA tenderness Extremities: No edema. Skin: Warm, dry, (-) rash. Neuro: Alert and oriented x3, moves all extremities equally. No ataxia. No gait disturbance. No sensory deficit. Normal strength, normal sensation. Psychiatric: Mildly agitated. Triage Information Reviewed: Yes Vital Signs On Initial Exam: Initial Vitals Temp Pulse Resp BP Pulse Ox 97.9 F 75 15 154/80 97 10/26/19 02:34 10/26/19 02:34 10/26/19 02:34 10/26/19 02:34 10/26/19 02:34 Vital Signs Reviewed: Yes Procedures - Sedation Patient Received Moderate/Deep Sedation with Procedure: No Diagnostics - Vital Signs Vital Signs Temp Pulse Resp BP Pulse Ox 10/26/19 02:34 97.9 F 75 15 154/80 97 - Laboratory Lab Results: Lab Results 10/26/19 Range/Units 05:27 WBC 10.8 (3.5-10.8) 10^3/uL RBC 4.75 (3.70-4.87) 10^6 /uL Hgb 14.7 (12.0-16.0) g/dL Hct 43 (35-47) % MCV 91 (80-97) fL MCH 31 (27-31) pg MCHC 34 (31-36) g/dL RDW 13 (10-15) % Plt Count 287 (150-450) 10^3/uL MPV 7.7 (7.4-10.4) fL Neut % (Auto) 55.3 % Lymph % (Auto) 32.0 % Gosper % (Auto) 6.9 % Eos % (Auto) 5.0 % Baso % (Auto) 0.8 % Absolute Neuts (auto) 6.0 (1.5-7.7) 10^3/ul Absolute Lymphs (auto) 3.5 (1.0-4.8) 10^3/ul Absolute Monos (auto) 0.7 (0-0.8) 10^3/ul Absolute Eos (auto) 0.5 (0-0.6) 10^3/ul Absolute Basos (auto) 0.1 (0-0.2) 10^3/ul Absolute Nucleated RBC 0.0 10^3/ul Nucleated RBC % 0.1 Result Diagrams: 10/26/19 05:27 10/26/19 05:27 Lab Statement: Any lab studies that have been ordered have been reviewed, and results considered in the medical decision making process. EENT Course/Dx - Course Course Of Treatment: 49-year-old female presents with dental pain. Had extraction on October 07. Has been taking oxycodone she had from a previous problem. States she is all out. Also been trying [id number] medication without relief. Patient gives inconsistent history regarding when she has been seen by a home an upcoming appointments. Also vague history regarding narcotic use. According to the [employer] system patient has been getting oxycodone for various different reasons. 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 Physical exam demonstrates no significant erythema or edema. No obvious abscess. No fluctuance. Blood work essentially within normal limits. Patient given IM Toradol. Ice packs to the area. Follow-up with dentist. Follow sooner for any worsening symptoms. During ED course, patient received 15 mg toradol IM. - Diagnoses Provider Diagnoses: Pain, dental Discharge ED - Sign-Out/Discharge Documenting (check all that apply): Patient Departure - DISCHARGE - Discharge Plan Condition: Stable Disposition: HOME Prescriptions: Ketorolac TAB * [Toradol TAB *] 10 mg PO Q6H #20 tab Patient Education Materials: Toothache (ED) Referrals: Facundo Constantino NP [Primary Care Provider] - Additional Instructions: PLEASE RETURN TO ED FOR ANY NEW OR WORSENING SYMPTOMS. PLEASE FOLLOW UP WITH YOUR PRIMARY CARE PHYSICIAN AND DENTIST WITHIN THREE DAYS. - Billing Disposition and Condition Condition: STABLE Disposition: Home - Attestation Statements Document Initiated by Scribe: Yes Documenting Scribe: SG PETERS Provider For Whom Scribe is Documenting (Include Credential): JUAN ANTONIO MIGUEL MD Scribe Attestation: I, SG PETERS, scribed for JUAN ANTONIO MIGUEL MD on 10/30/19 at 0416. Scribe Documentation Reviewed: Yes Provider Attestation: The documentation as recorded by the SG sue accurately reflects the service I personally performed and the decisions made by me, JUAN ANTONIO MIGUEL MD Status of Scribe Document: Viewed
[2019-10-26 06:59] LABS: Urine Appearance Cloudy; Urine Bilirubin Negative (Negative); Urine Blood Negative (Negative); Urine Color Yellow; Urine Glucose Negative (Negative); Urine Ketones Negative (Negative); Urine Nitrite Negative (Negative); Urine Protein Negative (Negative); Urine Specific Gravity 1.018 (1.010-1.030); Urine Urobilinogen Negative (Negative)
[2019-10-26 07:07] LABS: Urine Bacteria Absent (Absent); Urine Red Blood Cell Absent (Absent); Urine Squamous Epithelial Cell Present (Absent); Urine White Blood Cell Trace(0-5/hpf) (Absent)
[2019-10-26 07:20] VITALS: BP 135/79
[2019-10-26 07:22] LABS: Urine Benzodiazepine Screen Presumptive Positive (None Detect); Urine Opiates Screen None Detected (None Detect)
== END 2019-10-26 07:18 | disposition home or self-care (01) ==
LOC: ED 02:32
DX: K08.89 Other specified disorders of teeth and supporting structures (principal); M54.9 Dorsalgia, unspecified; K21.9 Gastro-esophageal reflux disease without esophagitis; R51 Headache; F41.9 Anxiety disorder, unspecified; F32.9 Major depressive disorder, single episode, unspecified; F17.210 Nicotine dependence, cigarettes, uncomplicated; F43.10 Post-traumatic stress disorder, unspecified; Z87.442 Personal history of urinary calculi; Z79.899 Other long term (current) drug therapy
CPT/HCPCS: 36415; 80053; 80307; 81003; 81015; 85025; 85610; 87086; 96372; 99283; G0480; J1885

== ENCOUNTER 2021-11-29 13:00 | Inpatient (IN) ==
[~2021-11-29 13:00] MED LIST changes: +Buffered Lidocaine 1% SYRIN 1 ml INTRADERM ONE; +Dexamethasone IV 4 MG/ML VIAL 1 ml VIAL ONE; +DiMENhydriNATE IV 50 mg/ml 1 ml VIAL IV PUSH ONE; +DiMENhydriNATE IV 50 mg/ml 1 ml VIAL ONE; -Glucagon* 1 MG VIAL IV ONE; +HYDROcodone/ACETAMIN 5/325 mg TAB PO PRN; -LORazepam INJ* 2 MG/ML 1 ML VIAL IV PUSH ONE; +Lactated Ringers 1000 ml BAG 1,000 ML IV SCH; +Lidocaine 2% PF 5 ML VIAL ONE; +Metoclopramide 5 MG/ML VIAL (10 mg) IV PRN; +Midazolam 2 mg/2 ml VIAL 1 mg/ml 2 ml VIAL (2 mg) ONE; +Naloxone 0.4 mg VIAL 0.4 mg/ml 1 ml VIAL IV PRN; +Ondansetron 4 mg VIAL 2 MG/ML 2 ml VIAL IV PRN; +Ondansetron 4 mg VIAL 2 MG/ML 2 ml VIAL ONE; -Pantoprazole IV* 40 MG IV ONE; +Rocuronium 50 mg VIAL 10 mg/ml 5 ml VIAL (50 mg) ONE; +ceFAZolin 1 GM ADVAN 1 GM ADDV.VIAL IVPB ONE
[2021-11-29] MEDS ORDERED: fentaNYL 250 mcg/5 ml 50 MCG/ML 5 ml VIAL (250 MCG) ONE ×2 (13:52→18:01)
[2021-11-29] MEDS ORDERED: ROPIVACAINE 5 MG/ML 30 ML BTL (0.5%) ONE (15:19)
[2021-11-29] MEDS ORDERED: Propofol 10 MG/ML 20 ML BTL ONE (15:30)
[2021-11-29] MEDS ORDERED: Phenylephrine IV 10 MG/ML 1 ml VIAL ONE (15:30)
[2021-11-29] MEDS ORDERED: Glycopyrrolate IV 0.2 MG/ML 1 ML VIAL ONE (15:38)
[2021-11-29] MEDS ORDERED: Lidocaine 2% PF 5 ML VIAL ONE (15:39)
[2021-11-29] MEDS ORDERED: Lactulose 30 ml UDC PO PRN (15:46)
[2021-11-29] MEDS ORDERED: Magnesium Hydroxide LIQ 30 ML UDC PO PRN (15:46)
[2021-11-29] MEDS ORDERED: Ondansetron ODT 4 mg TAB 4 MG TAB PO PRN (15:46)
[2021-11-29] MEDS ORDERED: diPHENhydraMINE 25 mg TAB PO PRN (15:46)
[2021-11-29] MEDS ORDERED: diPHENhydraMINE IV 50 MG/ML 1 ml VIAL (BENADRYL) IV PRN (15:46)
[2021-11-29] MEDS ORDERED: Ondansetron 4 mg VIAL 2 MG/ML 2 ml VIAL IV PRN (15:46)
[2021-11-29] MEDS ORDERED: Midazolam 2 mg/2 ml VIAL 1 mg/ml 2 ml VIAL (2 mg) ONE (15:52)
[2021-11-29] MEDS ORDERED: ceFAZolin 1 GM ADVAN 1 GM in NS 0.9% 50 ML 50 ML IVPB SCH ×2 (16:00→22:00)
[2021-11-29] MEDS ORDERED: Esmolol 10 MG/ML 10 ML (100 mg) ONE (16:04)
[2021-11-29] MEDS ORDERED: Rocuronium 50 mg VIAL 10 mg/ml 5 ml VIAL (50 mg) ONE ×2 (16:22→18:01)
[2021-11-29] MEDS ORDERED: fentaNYL 100 mcg/2 ml 50 MCG/ML VIAL ONE ×3 (17:18→19:44)
[2021-11-29] MEDS: fentaNYL 100 mcg/2 ml 50 MCG/ML VIAL IV PRN ×4 (19:51→20:34)
[2021-11-29] MEDS ORDERED: HYDROcodone/ACETAMIN 5/325 mg TAB ONE (19:55)
[2021-11-29] MEDS: Lactated Ringers 1000 ml BAG 1,000 ML IV SCH (21:25)
[2021-11-29] MEDS: Magnesium Hydroxide LIQ 30 ML UDC PO SCH (21:56)
[2021-11-29] MEDS: ceFAZolin 1 GM ADVAN 1 GM in NS 0.9% 50 ML 50 ML IVPB SCH (23:27)
[2021-11-30 06:08] LABS: Hematocrit 33 % (35-47); Hemoglobin 10.9 g/dL (12.0-16.0); Mean Platelet Volume 8.1 fL (7.4-10.4); Platelet Count 195 10^3/uL (150-450)
[2021-11-30 06:32] LABS: Anion Gap 6 mmol/L (2-11); Blood Urea Nitrogen 17 mg/dL (6-24); CO2 Carbon Dioxide 23 mmol/L (22-32); Calcium 7.7 mg/dL (8.6-10.3); Chloride 110 mmol/L (101-111); Digoxin < 0.3 ng/ml (0.8-2.0); Glucose 129 mg/dL (70-100); Magnesium 1.7 mg/dL (1.9-2.7); Potassium 4.4 mmol/L (3.5-5.0); Sodium 139 mmol/L (135-145); eGFR CKD-EPI 84.1 (>60)
[2021-11-30] MEDS: ceFAZolin 1 GM ADVAN 1 GM in NS 0.9% 50 ML 50 ML IVPB SCH ×2 (07:11→15:39)
[2021-11-30] MEDS: Lactated Ringers 1000 ml BAG 1,000 ML IV SCH (07:15)
[2021-11-30] MEDS: Vitamin THERAPEUTIC TAB PO SCH (10:34)
[2021-11-30] MEDS: Magnesium Hydroxide LIQ 30 ML UDC PO SCH ×2 (10:34→20:03)
[2021-11-30] MEDS: VENLAFAXINE 75 MG PO SCH (10:35)
[2021-12-01 06:10] LABS: Hematocrit 29 % (35-47); Hemoglobin 9.5 g/dL (12.0-16.0); Mean Platelet Volume 8.4 fL (7.4-10.4); Platelet Count 184 10^3/uL (150-450)
[2021-12-01] MEDS: Vitamin THERAPEUTIC TAB PO SCH (08:09)
[2021-12-01] MEDS: Magnesium Hydroxide LIQ 30 ML UDC PO SCH (08:11)
[2021-12-01] MEDS: VENLAFAXINE 75 MG PO SCH (08:12)
[2021-12-01 11:03] VITALS: BP 100/60
== END 2021-12-01 13:15 | disposition home or self-care (01) | DRG 301 ==
LOC: SSU 21:21
PROVIDERS: ADMIT Orthopaedic Surgery Adult Reconstructive Orthopaedic Surgery; ATTEND Orthopaedic Surgery Adult Reconstructive Orthopaedic Surgery